=== PATIENT | male | born 1960 | race Caucasian/White ===

== ENCOUNTER 2023-11-13 11:20 | Outpatient (OUT) | payer OTHER, SELFPAY ==
[2023-11-13 11:47] LABS: Basophils Absolute Auto 0.1 10^3/uL (0.0-0.1); Basophils Percent Auto 0.8 % (0.2-2.0); Eosinophils Absolute Auto 0.2 10^3/uL (0.0-0.7); Eosinophils Percent Auto 3.7 % (0.9-7.0); Hematocrit 44.2 % (42.0-54.0); Hemoglobin 14.9 g/dL (14.0-18.0); Immature Granulocytes Abs Auto 0.01 10^3/uL (0.00-0.03); Immature Granulocytes Pct Auto 0.2 % (0.0-0.5); Lymphocytes Absolute Auto 1.7 10^3/uL (1.2-3.8); Lymphocytes Percent Auto 27.7 % (20.5-60.0); Mean Corpuscular HGB Conc 33.7 g/dL (29.9-35.2); Mean Corpuscular Hemoglobin 32.1 pg (25.9-34.0); Mean Corpuscular Volume 95.3 fL (80.0-94.0); Monocytes Absolute Auto 0.6 10^3/uL (0.3-0.8); Monocytes Percent Auto 9.5 % (1.7-12.0); Neutrophils Absolute Auto 3.6 10^3/uL (1.4-6.5); Neutrophils Percent Auto 58.1 % (43.0-75.0); Platelet Count 226 10^3/uL (150-450); Red Blood Count 4.64 10^6/uL (4.70-6.10); Red Cell Distribution Width 12.3 % (11.0-15.0); White Blood Count 6.2 10^3/uL (4.0-11.0)
[2023-11-13 12:45] LABS: Anion Gap 11.7; BUN Creatinine Ratio 19.4; Calcium 9.1 mg/dL (8.5-10.1); Carbon Dioxide 28.7 mmol/L (21.0-32.0); Chloride 106 mmol/L (98-107); Estimated GFR (African America >60 (>=60); Estimated GFR (Non-African Ame >60 (>=60); Glucose 95 mg/dL (74-106); Potassium 4.4 mmol/L (3.5-5.1); Sodium 142 mmol/L (136-145); Thyroid Stimulating Hormone 1.861 uIU/mL (0.358-3.740)
[2023-11-14 04:07] LABS: Testosterone 481 ng/dL (264-916)
== END 2023-11-13 11:21 | disposition home or self-care (01) ==
LOC: LAB 11:24
PROVIDERS: PCP Family Medicine; Visit Provider Family Medicine
DX: Z79.899 Other long term (current) drug therapy (principal); R53.83 Other fatigue
CPT/HCPCS: 36415; 80048; 84403; 84443; 85025

== ENCOUNTER 2024-02-22 23:27 | Emergency (ER) | payer OTHER, SELFPAY ==
[2024-02-22 23:31] VITALS: BP 151/79; PULSE 94; TEMP 37.1; O2SAT 96; BMI 36.9
--- OUTSIDE RECORDS SUMMARY | 2024-02-22 23:34 | XMS_ITS | CCD ---
Author Organization [facility] Inform ion Partnership [facility] Care Team Providers Care Library Page Name Role Phone Neftaly Solis Attending Provider Jose Escalante Primary Care Provider Marta Niño Unavailable REZA DILLON Primary Care Physician [phone] Sera REYNA Attending Unavailable NADERER PROVIDERREZA Referring Unavailab MD Jose Schulte Primary Care Provider MD Justo Carter Attending Provider [facility], DR CEE Primary Care Unavailable Keyla Miller Consulting Unavailable FAWTAMI, H Admitting Unavailable FACHARISMA, H Attending Unavailable CONSUELO FRIAS Consulting Unavailable FAWWAD, WALLACE H Consulting Unavailable JENNY, DR IRENE Gandhi Attending Unavailable JENNY, DR IRENE Gandhi Admitting Unavailable JENNY, DR IRENE Gandhi Consulting Unavailable NADEREHiram, DR REZA Lazcano Primary Care Unavailable GIBSON MARINELLI Consulting Unavailable Keyla Miller Consulting Unavailable NADNATO, DR REZA Lazcano Attending Unavailable NADERER, DR REZA Lazcano Primary Care Unavailable NADERER, DR REZA Lazcano Admitting Unavailable NADERER, DR REZA Lazcano Consulting Unavailable NILL ., DR ZAMORA Attending Unavailable ZIXAVIER, DR OSWALD Gandhi Consulting Unavailable NADEREHiram, DR REZA Lazcano Primary Care Unavailable NILL ., DR ZAMORA Admitting Unavailable NILL ., DR ZAMORA Consulting Unavailable NADERER, DR REZA Lazcano Consulting Unavailable NADERER, DR REZA Lazcano Primary Care Unavailable NADERER, DR REZA Lazcano Admitting Unavailable NADERER, DR REZA Lazcano Attending Unavailable Grady Hitchcock Unavailable MD Grady Hitchcock Attending Provider MD Reza Dillon Primary Care Provider MD Chuy Ward Attending Provider Reza Dillon MD Primary Care Provider Reza Dillon Primary Care Unavailable Grady Hitchcock Admitting Unavailable Grady Hitchcock Attending Unavailable Chuy Ward Admitting UnavailChuy Ramirez Attending Unavailabl e Reza Dillon Primary Care Unavailable Grady Hitchcock Admitting Unavailable Grady Hitchcock Attending Unavailable Reza Dillon Primary Care Unavailable HaladaJusto reynolds Admitting Unavailable Haladarodolfo, Justo Attending Unavailable Reza Dillon Primary Care Unavailable CARLO GONZALES Referring Unavailable LUKASJOSÉ JASMINE Attending Unavailable GILLMOJO Gandhi Attending Unavailable REZA DILLON Attending Unavailable MURCEDAMIR Cortes Attending Unavailable MURCESophia, DAMIR Lino Attending Unavailable APLCARLO ANN Attending Unavailable PETOSCAR KAMINSKI Attending Unavailable Reza Dillon MD Primary Care Provider Reza Dillon MD Unavailable Unavailable Unavailable Unavailable Allergies Allergy Classification Reported Allergen(s) Allergy Type Date of Onset Reaction(s) Facility (13 sources) Acetaminophen; Translations: [acetaminophen] Drug Allergy 03-12-20 16 hives, Eruption of skin (disorder), Rash [facility] (2 sources) Acetaminophen; Translations: [Tylenol] Drug Allergy 04-07-20 22 [facility] (13 sources) Chocolate Allergy to substance 07-26-19 21 Rash [facility] (7 sources) Soy protein Allergy to substance 03-12-20 16 Unknown Reaction [facility] (10 sources) Wheat preparation Drug Allergy 03-12-20 16 Unknown Reaction [facility] (6 sources) beet sugar Allergy to substance 07-26-19 21 Unknown Reaction [facility] (3 sources) Wheat germ oil Drug Allergy Unknown [place] Other (5 sources) Soybean-Soy Isoflavones Drug allergy 08-26-19 24 Unknown, Unknown Reaction [facility] (1 source) Wheat Propensity to adverse reactions to drug 03-12-20 16 [facility] (1 source) Other Propensity to adverse reactions 03-12-20 16 [facility] (4 sources) Acetaminophen Drug Allergy 01-06-20 14 Rash [facility] (4 sources) Germanium Drug Allergy 07-26-19 21 Unknown [facility] (4 sources) Isoflavones (Soy) Allergy to substance 02-25-20 23 Rash [facility] Medications Current Medications Medication Drug Class(es) Dates Sig (Normalized) Sig (Original) 0.4 ml adalimumab 100 mg/ml auto-injector (6 sources) Tumor Necrosis Factor Nano Start: 08-26-2023 Adalimumab (Humira(Cf) Pen) 40 mg/0.4 mL pen injector kit Active MG SUBCUT August 26, 2023 12:00am Start: 07-31-2023 Humira, 2 Pen, 40 MG/0.4ML Pen-injector Kit pen-injector Inject 40 mg under the skin every 14 (fourteen) days 07/31/2023 Active [id number] actuat albuterol 0.09 mg/actuat metered dose inhaler (4 sources) beta2-Adrenergic Agonist Start: 07-20-2022 take 2 puff(s) by inhalation four times daily as needed Albuterol Sulfate HFA 108 (90 Base) MCG/ACT 2 puffs Inhalation 4 times a day prn PRN Jul, Active Start: 07-20-2022 take 2 puff(s) by in halation four times daily as needed Albuterol Sulfate HFA 108 (90 Base) MCG/ACT 2 puffs Inhalation 4 times a day prn PRN Jul, Active Start: 07-20-2022 take 2 puff(s) by in halation four times daily as needed Albuterol Sulfate HFA 108 (90 Base) MCG/ACT 2 puffs Inhalation 4 times a day prn Jul, Active amitriptyline hydrochloride 10 mg oral tablet (4 sources) Tricyclic Antidepressant Start: 09-29-2023 take 1 tablet by mouth at bedtime amitriptyline (Elavil) 10 MG tablet Indications: Chronic cough Take 1 tablet (10 mg) by mouth at bedtime 30 tablet 2 09/29/2023 Active benzonatate 200 mg oral capsule (1 source) Non-narcotic Antitussive Start: 07-20-2022 take 1 capsule by mouth every eight hours Benzonatate 200 MG 1 capsule Orally Three times a day Jul, Active Betamethasone / Clotrimazole (1 source) Azole Antifungal, Corticosteroid Start: 02-08-2022 betamethasone-clot rimazole Top 0.05%-1% Crm 15 gram 1 monster, Topical, BID, Refill(s) 0 Start Date: 02/08/22 Status: Ordered citalopram 20 mg oral tablet (17 sources) Serotonin Reuptake Inhibitor Start: 07-25-2020 citalopram (CeleXA) 20 MG tablet Indications: VERONICA (generalized anxiety disorder) (CMS/LTAC, [facility]IN [facility]) TAKE 1 TABLET DAILY 90 tablet 3 12/17/2023 Active Citalopram Beasley bromide Active cyclobenzaprine hydrochloride 10 mg oral tablet (5 sources) Muscle Relaxant Start: 11-19-2023 take 1 tablet by mouth three times daily as needed for muscle spasms cyclobenzaprine (Flexeril) 10 MG tablet Indications: Acute left-sided low back pain with left-sided sciatica Take 1 tablet (10 mg) by mouth 3 (three) times a day as needed for muscle spasms 60 tablet 1 11/19/2023 Active Start: 10-17-2020 take 1 tablet by sanam th at bedtime cyclobenzaprine (FLEXERIL) 10 mg tablet take 1 tablet by mouth at bedtime if needed for 14 days 0 10/17/2020 Active leflunomide 20 mg oral tablet (10 sources) Antirheumatic Agent Start: 01-21-2023 End: 01-12-2024 take 1 tablet by mouth once daily leflunomide (Arava) 20 MG tablet take 1 tablet by mouth once daily ( MUST GET STANDING LABS ) 01/21/2023 Active nabumetone 500 mg oral tablet (1 source) Nonsteroidal Anti-inflammatory Drug Start: 02-08-2022 take 1 tablet by mouth twice daily as needed for pain nabumetone 500 mg Tab 500 mg = 1 tab(s), Oral, BID, PRN Pain, Refills(s) 0 Start Date: 02/08/22 Status: Ordered omeprazole 40 mg delayed release oral capsule (14 sources) Proton Pump Inhibitor Start: 10-29-2023 take 1 capsule by mouth in the morning omeprazole (PriLOSEC) [address] capsule Take 40 mg by mouth in the morning and 40 mg in the evening. Take before meals. 10/29/2023 Active Start: 04-25-2023 Omeprazole 40 MG 1 capsule 30 minutes before morning meal and in the evening Orally twice a day for 90 days Apr, Active Start: 04-22-2016 take 40 mg by mouth once daily Omeprazole Active 40 MG PO Daily July 25, 2020 12:00am Omeprazole Activ e ondansetron 4 mg oral tablet (1 source) Serotonin-3 Receptor Antagonist Start: 01-24-2021 take 1 tablet by mouth three times daily as needed for nausea Zofran 4 MG 1 tablet Orally tid prn 1 tablet ODT 3 times a day as needed for nausea or vomiting. Jan, Active pantoprazole 40 mg delayed release oral tablet (3 sources) Proton Pump Inhibitor Start: 02-08-2022 take 1 tablet by mouth twice daily Pantoprazole [address] Tab 40 mg = 1 tab(s), Oral, BID, Refills(s) 0 Start Date: 02/08/22 Status: Ordered pramipexole dihydrochloride 0.25 mg oral tablet (7 sources) Nonergot Dopamine Agonist Start: 01-12-2023 take 1 tablet by mouth in the morning pramipexole (Mirapex) 0.25 MG tablet Take 0.25 mg by mouth in the morning and 0.25 mg before bedtime. 01/12/2023 Active take 1 tablet by sanam th every twenty-four hours Pramipexole Dihydrochloride ER 0.375 MG 1 tablet Orally Once a day Not-Taking/PRN predniSONE 20 mg oral tablet (1 source) Start: 07-20-2022 take 1 tablet by mouth every twelve hours predniSONE 20 MG 1 tablet Orally 2 times a day for 5 day(s) Jul, Active sucralfate 1000 mg oral tablet (1 source) Aluminum Complex Start: 02-08-2022 sucralfate 1 g Tab 1 gm = 1 tab(s), Oral, QIDACHS, Refills(s) 0 Start Date: 02/08/22 Status: Ordered tamsulosin hydrochloride 0.4 mg oral capsule (20 sources) alpha-Adrenergic Nano Start: 07-28-2023 tamsulosin (FLOMAX) 0.4 mg capsule TAKE 2 CAPSULES IN THE MORNING 180 capsule 3 07/28/2023 Active Start: 08-02-2022 take 1 capsule by mo uth every twenty-four hours in the morning tamsulosin (Flomax) 0.4 MG 24 hr capsule Take 1 capsule by mouth in the morning. 08/02/2022 Active Start: 08-02-2022 End: 07-28-2023 tamsulosin (FLOMAX) 0.4 mg c apsule TAKE 2 CAPSULES IN THE MORNING 180 capsule 3 08/02/2022 07/28/2023 Discontinued Start: 07-25-2020 take 0.4 mg by mouth once luis y Tamsulosin Active 0.4 MG PO Daily July 25, 2020 12:00am take 1 capsule by mo uth every twelve hours Tamsulosin HCl 0.4 MG 1 capsule Orally TWICE A DAY Active Tamsulosin HCl A ctive Flomax Not-Takin g Completed/Discontinued Medications Medication Drug Class(es) Dates Sig (Normalized) Sig (Original) Ketorolac (8 sources) Nonsteroidal Anti-inflammatory Drug, Cyclooxygenase Inhibitor Start: 11-25-2018 Toradol per 15 mg Nov, 30 mg Start: 04-07-2017 Toradol per 15 mg Mar, 60 mg Triamcinolone (8 sources) Corticosteroid Start: 11-25-2018 Kenalog -40 mg Nov, 60 mg Start: 04-07-2017 KENALOG - 10 m g Mar, 40 mg Problems Active Problems Problem Classification Problem Date Documented Da te Episodic/Chronic Anxiety disorders (5 sources) Generalized anxiety disorder; Translations: [Generalized anxiety disorder] Onset: 4 02-08-2022 Chronic Chronic obstructive pulmonary disease and bronchiectasis (1 source) Bronchitis, not specified as acute or chronic Episodic Esophageal disorders (20 sources) Gastroesophageal reflux disease; Translations: [Gastro-esophageal reflux disease without esophagitis] Onset: 2 Chronic Esophageal disorders (1 source) Esophageal disorders; Translations: [Gastro-esophageal reflux disease without esophagitis] Onset: 3 Headache; including migraine (1 source) Headache; including migraine; Translations: [HEADACHE UNSPECIFIED] Onset: 2 Hyperplasia of prostate (5 sources) Benign prostatic hyperplasia; Translations: [Benign prostatic hypertrophy without outflow obstruction] Onset: 4 02-08-2022 Chronic Immunizations and screening for infectious disease (6 sources) Contact with and (suspected) exposure to other viral communicable diseases; Translations: [Contact with and (suspected) exposure to other viral communicable diseases Z20.828] Onset: 1 Resolved: 1 Episodic Miscellaneous mental health disorders (4 sources) Primary insomnia; Translations: [Primary insomnia] Onset: 4 08-22-2023 Chronic Neoplasms of unspecified nature or uncertain behavior (2 sources) Neoplastic disease; Translations: [Neoplasm of unspecified behavior of bone, soft tissue, and skin] 01-20-2024 Episodic Osteoarthritis (12 sources) Arthritis; Translations: [Unspecified osteoarthritis, unspecified site] Onset: 4 05-02-2023 Chronic Other acquired deformities (4 sources) Contracture of joint of right ankle; Translations: [Contracture, right ankle] Onset: 4 05-02-2023 Chronic Other gastrointestinal disorders (1 source) Heartburn; Translations: [Heartburn] 08-26-2023 Episodic Other hereditary and degenerative nervous system conditions (4 sources) Restless legs; Translations: [Restless legs syndrome] Onset: 4 09-08-2023 Chronic Other inflammatory condition of skin (5 sources) Psoriasis; Translations: [Psoriasis, unspecified] Onset: 4 02-08-2022 Chronic Other male genital disorders (5 sources) Male erectile dysfunction, unspecified; Translations: [Impotence of organic origin] Onset: 6 07-08-2022 Chronic Other nutritional; endocrine; and metabolic disorders (5 sources) Body mass index 40+ - severely obese; Translations: [Body mass index (BMI) 40.0-44.9, adult] Onset: 4 03-06-2022 Chronic Other nutritional; endocrine; and metabolic disorders (5 sources) Morbid obesity; Translations: [Morbid (severe) obesity due to excess calories] Onset: 4 02-08-2022 Chronic Other upper respiratory disease (4 sources) Allergic rhinitis; Translations: [Allergic rhinitis, unspecified] Onset: 4 05-02-2023 Chronic Residual codes; unclassified (5 sources) Obstructive sleep apnea syndrome; Translations: [Obstructive sleep apnea (adult) (pediatric)] Onset: 4 02-08-2022 Chronic Residual codes; unclassified (4 sources) Hypersomnia; Translations: [Hypersomnia, unspecified] Onset: 4 08-22-2023 Chronic Rheumatoid arthritis and related disease (4 sources) Rheumatoid arthritis of multiple joints; Translations: [Rheumatoid arthritis without rheumatoid factor, multiple sites] Onset: 4 09-08-2023 Chronic Unclassified (1 source) COUGH, UNSPECIFIED; Translations: [COUGH, UNSPECIFIED] Onset: Past or Other Problems Problem Classification Problem Date Documented Da te Episodic/Chronic Abdominal hernia (5 sources) Hiatal hernia; Translations: [Diaphragmatic hernia without obstruction or gangrene] Onset: 05-02-2023 02-08-2022 Episodic Allergic reactions (5 sources) Chronic eczema; Translations: [Dermatitis, unspecified] Onset: 05-02-2023 02-08-2022 Episodic Coma; stupor; and brain damage (4 sources) Daytime somnolence; Translations: [Somnolence] Onset: 05-02-2023 05-02-2023 Episodic Conditions associated with dizziness or vertigo (4 sources) Dizziness and giddiness; Translations: [DIZZINESS AND GIDDINESS] Onset: 04-07-2022 Episodic E Codes: Adverse effects of medical drugs (1 source) Adverse effect of other viral vaccines, initial encounter; Translations: [ADVERS EFF OTH VIRAL VACC INIT ENC] Onset: 04-09-2022 Episodic Genitourinary symptoms and ill-defined conditions (5 sources) Increased frequency of urination; Translations: [Frequency of micturition] Onset: 09-19-2020 03-18-2023 Episodic Malaise and fatigue (5 sources) Weakness; Translations: [Fatigue] Onset: 04-09-2022 09-08-2023 Episodic Nausea and vomiting (1 source) Nausea with vomiting, unspecified; Translations: [Nausea and vomiting, intractability of vomiting not specified, unspecified vomiting type R11.2] Onset: 01-24-2021 Resolved: 01-24-2021 Episodic Other aftercare (4 sources) Long-term current use of drug therapy; Translations: [Other intermediate accountant (current) drug therapy] Onset: 09-08-2023 09-08-2023 Episodic Other gastrointestinal disorders (12 sources) Dysphagia; Translations: [Dysphagia, unspecified] Onset: 09-29-2023 Resolved: 09-29-2023 07-25-2020 Episodic Other gastrointestinal disorders (2 sources) Dysphagia, unspecified; Translations: [Dysphagia, unspecified] Onset: 02-17-2023 Episodic Other gastrointestinal disorders (6 sources) Heartburn; Translations: [Heartburn] Onset: 09-29-2023 Resolved: 09-29-2023 08-26-2023 Episodic Other lower respiratory disease (9 sources) Cough; Translations: [Cough, unspecified] Onset: 03-06-2022 Resolved: 09-29-2023 Episodic Other lower respiratory disease (4 sources) Snoring; Translations: [Snoring] Onset: 08-25-2023 08-25-2023 Episodic Other nervous system disorders (4 sources) Trigeminal neuralgia; Translations: [TRIGEMINAL NEURALGIA] Onset: 01-11-2022 Episodic Other non-traumatic joint disorders (4 sources) Multiple joint pain; Translations: [Pain in unspecified joint] Onset: 09-08-2023 09-08-2023 Episodic Other non-traumatic joint disorders (4 sources) Pain in right knee; Translations: [Pain in joint, lower leg] Onset: 09-08-2023 09-08-2023 Episodic Other screening for suspected conditions (not mental disorders or infectious disease) (6 sources) Encounter for screening for malignant neoplasm of prostate; Translations: [Raised prostate specific antigen] Onset: 03-19-2016 03-18-2023 Episodic Other skin disorders (4 sources) Skin lesion; Translations: [Disorder of the skin and subcutaneous tissue, unspecified] Onset: 09-08-2023 09-08-2023 Episodic Residual codes; unclassified (4 sources) Periodic limb movement disorder; Translations: [Periodic limb movement disorder] Onset: 08-22-2023 Resolved: 09-08-2023 09-08-2023 Chronic Spondylosis; intervertebral disc disorders; other back problems (4 sources) Acute back pain with sciatica; Translations: [Lumbago with sciatica, left side] Onset: 05-02-2023 05-02-2023 Episodic Viral infection (1 source) Viral infection, unspecified; Translations: [Viral infection B34.9] Onset: 01-24-2021 Resolved: 01-24-2021 Episodic Results Test Name Value Interpretation Reference Range Facility No Panel Informationon 01-19 Type of biopsy: tangential Informed consent: discussed and consent obtained Informed consent comment: The risks and benefits of the biopsy were discussed. Risks include but are not limited to bleeding, infection, scarring, pain, and nerve damage. An opportunity to ask questions prior to the procedure was permitted and all questions were answered. Patient was prepped and draped in usual sterile fashion: area cleansed with alcohol. Anesthesia: the lesion was anesthetized in a standard fashion Anesthetic: 1% lidocaine w/ epinephrine 1-100,000 buffered w/ 8.4% NaHCO3 Instrument used: DermaBlade Hemostasis achieved with: electrodesiccation Outcome: patient tolerated procedure well Outcome comment: The specimen was placed in a prelabeled formalin container to be sent for pathology Post-procedure details: sterile dressing applied and wound care instructions given Post-procedure details comment: Emphasized need to contact clinic for any signs of infection, uncontrollable bleeding, or complications. Dressing type: bandage Additional details: Photo taken Amount of lidocaine used: 1.7 cc [facility] Complete Blood Count Auto Di ffon 09-03-2023 Basophils (Bld) [#/Vol] 0.1 10*3/uL Normal 0.0-0.2 [facility] Comment on above: Performed By: #### E SR, HEPATIC, CREAT, CBC #### [place] [address] [place] Basophils/100 WBC (Bld) 1.2 % Normal . T dianne [facility] Comment on above: Performed By: #### E SR, HEPATIC, CREAT, CBC #### [facility] [address] [place] [address] [place] Eosinophils (Bld) [#/Vol] 0.3 10*3/uL Normal 0.0-0.45 [facility] Comment on above: Performed By: #### E SR, HEPATIC, CREAT, CBC #### [place] [address] [place] Eosinophils/100 WBC (Bld) 4.7 % Normal . [facility] Comment on above: Performed By: #### E SR, HEPATIC, CREAT, CBC #### [address] Erythrocyte distribution width (RBC) [Ratio] 13.5 % Normal 12.0-14.8 [facility] Comment on above: Performed By: #### E SR, HEPATIC, CREAT, CBC #### [address] Hematocrit (Bld) [Volume fraction] 45.4 % Normal 38.8-50.0 [facility] Comment on above: Performed By: #### E SR, HEPATIC, CREAT, CBC #### [address] Hemoglobin (Bld) [Mass/Vol] 15.5 g/dL Normal 13.0-17.0 [facility] Comment on above: Performed By: #### E SR, HEPATIC, CREAT, CBC #### [address] Lymphocytes (Bld) [#/Vol] 1.8 10*3/uL Normal 1.00-4.8 [facility] Comment on above: Performed By: #### E SR, HEPATIC, CREAT, CBC #### [address] Lymphocytes/100 WBC (Bld) 28.6 % Normal . [facility] Comment on above: Performed By: #### E SR, HEPATIC, CREAT, CBC #### [address] MCH (RBC) [Entitic mass] 31.9 pg Normal 27.5-35.2 [facility] Comment on above: Performed By: #### E SR, HEPATIC, CREAT, CBC #### [address] MCV (RBC) [Entitic vol] 93.6 fL Normal 83.5-101 T [facility] Comment on above: Performed By: #### E SR, HEPATIC, CREAT, CBC #### [address] Mean Corpuscular HGB Conc 34.1 g/dL Normal 32.5-35.6 [facility] Comment on above: Performed By: #### E SR, HEPATIC, CREAT, CBC #### [address] Monocytes (Bld) [#/Vol] 0.6 10*3/uL Normal 0.0-0.8 [facility] Comment on above: Performed By: #### E SR, HEPATIC, CREAT, CBC #### [address] Monocytes/100 WBC (Bld) 10.1 % Normal . [facility] Comment on above: Performed By: #### E SR, HEPATIC, CREAT, CBC #### [address] Neutrophils (Bld) [#/Vol] 3.4 10*3/uL Normal 1.8-7.7 [facility] Comment on above: Performed By: #### E SR, HEPATIC, CREAT, CBC #### [place] [address] [place] Neutrophils/100 WBC (Bld) 55.4 % Normal . [facility] Comment on above: Performed By: #### E SR, HEPATIC, CREAT, CBC #### [place] [address] [place] NRBC% 0.1 /100{WBC} Normal 0-0.5 [facility] Comment on above: Performed By: #### E SR, HEPATIC, CREAT, CBC #### [address] Platelet mean volume (Bld) [Entitic vol] 8.5 fL Normal 6.6-10.1 [facility] Comment on above: Performed By: #### E SR, HEPATIC, CREAT, CBC #### [place] [address] [place] Platelets (Bld) [#/Vol] 211 10*3/uL Normal 150-450 [facility] Comment on above: Performed By: #### E SR, HEPATIC, CREAT, CBC #### [address] RBC (Bld) [#/Vol] 4.86 10*6/uL Normal 3.90-5.60 [facility] Comment on above: Performed By: #### E SR, HEPATIC, CREAT, CBC #### [address] WBC (Bld) [#/Vol] 6.1 10*3/uL Normal 4.1-10.5 [facility] Comment on above: Performed By: #### E SR, HEPATIC, CREAT, CBC #### [address] Creatinineon 09-03-2023 Creatinine [Mass/Vol] 0.95 mg/dL Normal 0.70-1.30 [facility] Comment on above: Performed By: #### E SR, HEPATIC, CREAT, CBC #### [address] GFR/1.73 sq M.predicted MDRD (S/P/Bld) [Vol rate/Area] mL/min/{1.73_m2} Normal [facility] Comment on above: Result Comment: PERF ORMED BY: [place] [address] PATHOLOGIST ADMISSIONS ADVISOR MYLES CORTEZ M.D. Performed By: #### E SR, HEPATIC, CREAT, CBC #### [address] Erythrocyte Sedimentation Ra abraham 09-03-2023 ESR (Bld) [Velocity] 18 mm/h Normal 0-19 [facility] Comment on above: Result Comment: PERF ORMED BY: [place] [address] PATHOLOGIST ADMISSIONS ADVISOR MYLES CORTEZ M.D. Performed By: #### E SR, HEPATIC, CREAT, CBC #### [facility] [address] Hepatic Panelon 09-03-2023 Albumin [Mass/Vol] 4.3 g/dL Normal 3.5-5.7 [facility] Comment on above: Performed By: #### E SR, HEPATIC, CREAT, CBC #### [facility] [address] Albumin/Globulin [Mass ratio] 1.6 {ratio} Normal [facility] Comment on above: Performed By: #### E SR, HEPATIC, CREAT, CBC #### [address] ALP [Catalytic activity/Vol] 71 U/L Normal 34-104 [facility] [facility] Comment on above: Performed By: #### E SR, HEPATIC, CREAT, CBC #### [address] ALT [Catalytic activity/Vol] 36 U/L Normal 7-52 [facility] Comment on above: Performed By: #### E SR, HEPATIC, CREAT, CBC #### [address] AST [Catalytic activity/Vol] 29 U/L Normal 13-39 [facility] Comment on above: Performed By: #### E SR, HEPATIC, CREAT, CBC #### [address] Bilirubin [Mass/Vol] 0.6 mg/dL Normal 0.3-1.0 [facility] Comment on above: Performed By: #### E SR, HEPATIC, CREAT, CBC #### [place] [address] [place] Bilirubin,Indirect 0.5 mg/dL Normal [facility] Comment on above: Performed By: #### E SR, HEPATIC, CREAT, CBC #### [address] Bilirubin.indirect [Mass/Vol] 0.10 mg/dL Normal 0.03-0.18 [facility] Comment on above: Performed By: #### E SR, HEPATIC, CREAT, CBC #### [facility] [address] Globulin (S) [Mass/Vol] 2.7 g/dL Normal T [facility] Comment on above: Performed By: #### E SR, HEPATIC, CREAT, CBC #### [facility] [address] Protein [Mass/Vol] 7.0 g/dL Normal 6.4-8.9 [facility] Comment on above: Performed By: #### E SR, HEPATIC, CREAT, CBC #### [facility] [address] MR SHOULDER LEFT WO IV CONTR Mallory 04-18-2023 MR SHOULDER LEFT WO IV CONTRAST EXAMINATION: MR SHOULDER LEFT WO IV CONTRAST HISTORY: left shoulder internal derangement hyperextension injury to the left shoulder 5 years ago. No recent injury. TECHNIQUE: Routine non-contrast MRI of the shoulder, left side COMPARISON: Radiographs 02/24/2023. RESULT: Some limitations from motion. Within these limits: Rotator Cuff Tendons: Mild tendinosis involving supraspinatus and infraspinatus, without tear, with areas of reactive cystic change at the insertions. Subscapularis and teres minor appear intact. Long Head Biceps Tendon: Appears intact with appropriate location. Muscle: Muscle bulk and signal intensity are within normal limits. Labrum: Areas of fraying/tearing, especially superiorly. Bones and Marrow: Subchondral edema at the AC joint as below. Glenohumeral Joint: Osteophytes without distinct measurable full-thickness chondral defect within limits of motion. No joint effusion. Acromioclavicular Joint: Extensive subchondral edema at the joint involving the distal clavicle and acromion with osteophytes and pericapsular edema, probably degenerative in etiology. Differential also includes contusion or low-grade AC joint injury. Alignment appears grossly maintained within limits of motion. Other: Minimal subacromial-subdeltoi d bursal thickening/fluid. IMPRESSION: Rotator cuff tendinosis, without tear. Extensive subchondral edema at the acromioclavicular joint, most likely degenerative in etiology as discussed. ELECTRONICALLY SIGNED BY: Saravanan Jackson MD Normal Not Available Comment on above: Order Comment: MRI l eft shoulder without contrast to be done at [facility] in [place], please call to schedule CT chest w calvinon 03-27-2023 CT chest w con [facility] [place] [address] [place], [place] [id number] CT Scan Report Signed Patient: Anirudh Johnston MR#: [id number] 77 : 1960 Acct:[id number] Age/Sex: 62 / M ADM Date: 03/27/23 Loc: CT Room: Type: [facility] Attending Dr: Grady Hitchcock MD Copies to: Grady Hitchcock MD Ordering Provider: Grady Hitchcock MD Date of Service: 03/27/23 CT/CT chest w con: Esophagogastric junction outflow obstruction;Dysphagia CT CHEST WITH INTRAVENOUS CONTRAST: CLINICAL HISTORY: Chronic cough. COMPARISON: None TECHNIQUE: Spiral images were obtained through the chest following intravenous administration of IV contrast. This CT exam was performed using one or more following dose reduction techniques: Autom ated exposure control, adjustment of the mA and/or kV according to patient size, or use of iterative reconstruction technique. FINDINGS: Mediastinum:Thoracic aorta appears normal in caliber. Pulmonary trunk appears nondilated. No pericardial effusion. No lymphadenopathy. The esophagus is grossly unremarkable. Lungs:No consolidation pneumothorax or pleural effusion. Mild lung scarring. Abd:No acute findings. Soft tissues/Bones: Soft tissues surrounding the chest wall demonstrate no acute findings. Osseous structures demonstrate degenerative change. CT/CT chest w con IMPRESSION: No acute process. Impression dictated by: Oscar Perkins Jr., D.O.03/27/2023 9:58 AM Dictation Location: [place] [address] Transcribed By: [facility] 03/27/23957 Dictated By: Oscar Perkins Jr, DO 03/27/23940 Signed By: 03/27/23957 Normal [facility] CBC (INCLUDES DIFF/PLT)on Basophils (Bld) [#/Vol] 0.041 10*3/uL Normal 0-200 [facility] Comment on above: Performed By: #### 6 399, 48151, 809, 375 #### [facility] of [place] [address] Director Pharmacy Services: Rory Bell MD Basophils/100 WBC (Bld) 0.7 % Normal [facility] Comment on above: Performed By: #### 6 399, 51724, 809, 375 #### [facility] of [place] [address] Director Pharmacy Services: Rory Bell MD Eosinophils (Bld) [#/Vol] 0.278 10*3/uL Normal 15-500 [facility] Comment on above: Performed By: #### 6 399, 26267, 809, 375 #### [facility] of [place] [address] Director Pharmacy Services: Rory Bell MD Eosinophils/100 WBC (Bld) 4.8 % Normal [facility] Comment on above: Performed By: #### 6 399, 78884, 809, 375 #### [facility] of [place] [address] Director Pharmacy Services: Rory Bell MD Erythrocyte distribution width (RBC) [Ratio] 12.6 % Normal 11.0-15.0 [facility] Comment on above: Performed By: #### 6 399, 50266, 809, 375 #### [facility] of [place] [address] Director Pharmacy Services: Rory Bell MD Hematocrit (Bld) [Volume fraction] 41.4 % Normal 38.5-50.0 [facility] Comment on above: Performed By: #### 6 399, 53270, 809, 375 #### [facility] of [place] [address] Director Pharmacy Services: Rory Bell MD Hemoglobin (Bld) [Mass/Vol] 14.1 g/dL Normal 13.2-17.1 [facility] Comment on above: Performed By: #### 6 399, 36328, 809, 375 #### [facility] of [address] [place] [address] Director Pharmacy Services: Rory Bell MD Lymphocytes (Bld) [#/Vol] 1.131 10*3/uL Normal 850-3900 [facility] Comment on above: Performed By: #### 6 399, 63118, 809, 375 #### [facility] of [place] [address] Director Pharmacy Services: Rory Bell MD Lymphocytes/100 WBC (Bld) 19.5 % Normal [facility] Comment on above: Performed By: #### 6 399, 39249, 809, 375 #### [facility] of [place] [address] Director Pharmacy Services: Rory Bell MD MCH (RBC) [Entitic mass] 31.8 pg Normal 27.0-33.0 [facility] Comment on above: Performed By: #### 6 399, 02126, 809, 375 #### [facility] of [place] [address] Director Pharmacy Services: Rory Bell MD MCHC (RBC) [Mass/Vol] 34.1 g/dL Normal 32.0-36.[address] [facility] Comment on above: Performed By: #### 6 399, 66792, 809, 375 #### [facility] of [place] [address] Director Pharmacy Services: Rory Bell MD MCV (RBC) [Entitic vol] 93.2 fL Normal 80.0-100.0 [facility] Comment on above: Performed By: #### 6 399, 73975, 809, 375 #### [facility] of [place] [address] Director Pharmacy Services: Rory Bell MD Monocytes (Bld) [#/Vol] 0.435 10*3/uL Normal 200-950 [facility] Comment on above: Performed By: #### 6 399, 21910, 809, 375 #### [facility] of [address], [address] [place] [address] Director Pharmacy Services: Rory Bell MD Monocytes/100 WBC (Bld) 7.5 % Normal [facility] Comment on above: Performed By: #### 6 399, 65787, 809, 375 #### [facility] of [address], [address] [place] [address] Director Pharmacy Services: Rory Bell MD Neutrophils (Bld) [#/Vol] 3.915 10*3/uL Normal 5683-4068 [facility] Comment on above: Performed By: #### 6 399, 12333, 809, 375 #### [facility] of [place] [address] Director Pharmacy Services: Rory Bell MD Neutrophils/100 WBC (Bld) 67.5 % Normal [facility] Comment on above: Performed By: #### 6 399, 77005, 809, 375 #### [facility] [place] [address] Director Pharmacy Services: Rory Bell MD Platelet mean volume (Bld) [Entitic vol] 10.0 fL Normal 7.5-12.5 [facility] Comment on above: Performed By: #### 6 399, 82139, 809, 375 #### [facility] of [place] [address] Director Pharmacy Services: Rory Bell MD Platelets (Bld) [#/Vol] 269 10*3/uL Normal 140-400 [facility] Comment on above: Performed By: #### 6 399, 16508, 809, 375 #### [facility] of [place] [address] Director Pharmacy Services: Rory Bell MD RBC (Bld) [#/Vol] 4.44 10*6/uL Normal 4.20-5.80 [facility] Comment on above: Performed By: #### 6 399, 08526, 809, 375 #### [facility] of [place] [address] Director Pharmacy Services: Rory Bell MD WBC (Bld) [#/Vol] 5.8 10*3/uL Normal 3.8-10.8 [facility] Comment on above: Performed By: #### 6 399, 41278, 809, 375 #### [facility] [place] [address] Director Pharmacy Services: Rory Bell MD CREATININEon 10-19-2022 Creatinine [Mass/Vol] 0.92 mg/dL Normal 0.70-1.35 [facility] Comment on above: Order Comment: FASTI NG:NO FASTING: NO Performed By: #### 6 399, 04916, 809, 375 #### [facility] [place] [address] Director Pharmacy Services: Rory Bell MD GFR/1.73 sq M.predicted among non-blacks MDRD (S/P/Bld) [Vol rate/Area] 95 mL/min/{1.73_m2} Normal > OR = 60 [facility] Comment on above: Order Comment: FASTI NG:NO FASTING: NO Result Comment: The eGFR is based on the CKD-EPI 2020 equation. To calculate the new eGFR from a previous Creatinine or Cystatin C result, go to https://www.kidney.org/professionals/ kdoqi/gfr%5Fcalculator Performed By: #### 6 399, 83236, 809, 375 #### [facility] [place] [address] Director Pharmacy Services: Rory Bell MD HEPATIC FUNCTION PANELon Albumin [Mass/Vol] 4.0 g/dL Normal 3.6-5.1 [facility] Comment on above: Performed By: #### 6 399, 49289, 809, 375 #### [facility] [place] [address] Director Pharmacy Services: Rory Bell MD Albumin/Globulin [Mass ratio] 1.5 {ratio} Normal 1.0-2.5 [facility] Comment on above: Performed By: #### 6 399, 73830, 809, 375 #### [facility] of [address], [address] [place] [address] Director Pharmacy Services: Rory Bell MD ALP [Catalytic activity/Vol] 69 U/L Normal 35-144 [facility] Comment on above: Performed By: #### 6 399, 31117, 809, 375 #### [facility] of [address], [address] [place] [address] Director Pharmacy Services: Rory Bell MD ALT [Catalytic activity/Vol] 28 U/L Normal 9-46 [facility] Comment on above: Performed By: #### 6 399, 13639, 809, 375 #### [facility] of [address], [address] [place] [address] Director Pharmacy Services: Rory Bell MD AST [Catalytic activity/Vol] 24 U/L Normal 10-35 [facility] Comment on above: Performed By: #### 6 399, 45358, 809, 375 #### [facility] of [address], [address] [place] [address] Director Pharmacy Services: Rory Bell MD Bilirubin [Mass/Vol] 0.5 mg/dL Normal 0.2-1.2 [facility] Comment on above: Performed By: #### 6 399, 38315, 809, 375 #### [facility] of [place] [address] Director Pharmacy Services: Rory Bell MD BILIRUBIN, INDIRECT 0.4 mg/dL (calc) Normal 0.2-1.2 [facility] Comment on above: Performed By: #### 6 399, 47286, 809, 375 #### [facility] of [address], [address] [place] [address] Director Pharmacy Services: Rory Bell MD Bilirubin.indirect [Mass/Vol] 0.1 mg/dL Normal < OR = 0.2 [facility] Comment on above: Performed By: #### 6 399, 90145, 809, 375 #### [facility] of [address], [address] [place] [address] Director Pharmacy Services: Rory Bell MD Globulin (S) [Mass/Vol] 2.6 g/dL Normal 1.9-3.7 [facility] Comment on above: Performed By: #### 6 399, 90945, 809, 375 #### [facility] of [place] [address] Director Pharmacy Services: Rory Bell MD Protein [Mass/Vol] 6.6 g/dL Normal 6.1-8.1 [facility] Comment on above: Performed By: #### 6 399, 39332, 809, 375 #### [facility] of [place] [address] Director Pharmacy Services: Rory Bell MD SED RATE BY MODIFIED MELISSA Ballard 10-19-2022 SED RATE BY MODIFIED IRENE 22 mm/h High < OR = 20 [facility] Comment on above: Performed By: #### 6 399, 38331, 809, 375 #### [facility] of [place] [address] Director Pharmacy Services: Rory Bell MD CBC (INCLUDES DIFF/PLT)on Basophils (Bld) [#/Vol] 0.059 10*3/uL Normal 0-200 [facility] Comment on above: Performed By: #### 8 09, 37470, 375, 6399 #### [facility] [place] [address] Director Pharmacy Services: Rory Bell MD Basophils/100 WBC (Bld) 0.9 % Normal [facility] Comment on above: Performed By: #### 8 09, 59452, 375, 6399 #### [facility] [place] [address] Director Pharmacy Services: Rory Bell MD Eosinophils (Bld) [#/Vol] 0.383 10*3/uL Normal 15-500 [facility] Comment on above: Performed By: #### 8 09, 98677, 375, 6399 #### [facility] of [address] [place] [address] Director Pharmacy Services: Rory Bell MD Eosinophils/100 WBC (Bld) 5.8 % Normal [facility] Comment on above: Performed By: #### 8 09, 64667, 375, 6399 #### [facility] of [address], [address] [place] [address] Director Pharmacy Services: Rory Bell MD Erythrocyte distribution width (RBC) [Ratio] 12.6 % Normal 11.0-15.0 [facility] Comment on above: Performed By: #### 8 09, , , 6399 #### [facility] of [place] [address] Director Pharmacy Services: Rory Bell MD Hematocrit (Bld) [Volume fraction] 42.5 % Normal 38.5-50.0 [facility] Comment on above: Performed By: #### 8 09, , , 6399 #### [facility] of [place] [address] Director Pharmacy Services: Rory Bell MD Hemoglobin (Bld) [Mass/Vol] 14.6 g/dL Normal 13.2-17.1 [facility] Comment on above: Performed By: #### 8 09, 14931, 375, 6399 #### [facility] [place] [address] Director Pharmacy Services: Rory Bell MD Lymphocytes (Bld) [#/Vol] 1.274 10*3/uL Normal 850-3900 [facility] Comment on above: Performed By: #### 8 09, 55832, 375, 6399 #### [facility] [place] [address] Director Pharmacy Services: Rory Bell MD Lymphocytes/100 WBC (Bld) 19.3 % Normal [facility] Comment on above: Performed By: #### 8 09, 26783, 375, 6399 #### [facility] [place] [address] Director Pharmacy Services: Rory Bell MD MCH (RBC) [Entitic mass] 31.3 pg Normal 27.0-33.0 [facility] Comment on above: Performed By: #### 8 09, , 375, 6399 #### [facility] [place] [address] Director Pharmacy Services: Rory Bell MD MCHC (RBC) [Mass/Vol] 34.4 g/dL Normal 32.0-36.[address] [facility] Comment on above: Performed By: #### 8 09, , 375, 6399 #### [facility] [place] [address] Director Pharmacy Services: Rory Bell MD MCV (RBC) [Entitic vol] 91.0 fL Normal 80.0-100.0 [facility] Comment on above: Performed By: #### 8 09, , , 6399 #### [facility] [place] [address] Director Pharmacy Services: Rory Bell MD Monocytes (Bld) [#/Vol] 0.442 10*3/uL Normal 200-950 [facility] Comment on above: Performed By: #### 8 09, , 375, 6399 #### [facility] [place] [address] Director Pharmacy Services: Rory Bell MD Monocytes/100 WBC (Bld) 6.7 % Normal [facility] Comment on above: Performed By: #### 8 09, , , 6399 #### [facility] [place] [address] Director Pharmacy Services: Rory Bell MD Neutrophils (Bld) [#/Vol] 4.442 10*3/uL Normal 9324-5263 [facility] Comment on above: Performed By: #### 8 09, , 375, 6399 #### [facility] [place] [address] Director Pharmacy Services: Rory Bell MD Neutrophils/100 WBC (Bld) 67.3 % Normal [facility] Comment on above: Performed By: #### 8 09, 15038, 375, 6399 #### [facility] [place] [address] Director Pharmacy Services: Rory Bell MD Platelet mean volume (Bld) [Entitic vol] 10.1 fL Normal 7.5-12.5 [facility] Comment on above: Performed By: #### 8 09, 24146, 375, 6399 #### [facility] [place] [address] Director Pharmacy Services: Rory Bell MD Platelets (Bld) [#/Vol] 258 10*3/uL Normal 140-400 [facility] Comment on above: Performed By: #### 8 09, 06662, 375, 6399 #### [facility] [place] [address] Director Pharmacy Services: Rory Bell MD RBC (Bld) [#/Vol] 4.67 10*6/uL Normal 4.20-5.80 [facility] Comment on above: Performed By: #### 8 09, 82015, 375, 6399 #### [facility] [place] [address] Director Pharmacy Services: Rory Bell MD WBC (Bld) [#/Vol] 6.6 10*3/uL Normal 3.8-10.8 [facility] Comment on above: Performed By: #### 8 09, 27062, 375, 6399 #### [facility] of [place] [address] Director Pharmacy Services: Rory Bell MD CREATININEon 09-07-2022 Creatinine [Mass/Vol] 0.98 mg/dL Normal 0.70-1.[address] [facility] Comment on above: Performed By: #### 1 0256, 809, 375, 6399 #### [facility] [place] [address] Director Pharmacy Services: Rory Bell MD GFR/1.73 sq M.predicted among non-blacks MDRD (S/P/Bld) [Vol rate/Area] 88 mL/min/{1.73_m2} Normal > OR = 60 [facility] Comment on above: Result Comment: The eGFR is based on the CKD-EPI 2020 equation. To calculate the new eGFR from a previous Creatinine or Cystatin C result, go to https://www.kidney.org/professionals/ kdoqi/gfr%5Fcalculator Performed By: #### 1 0256, 809, 375, 6399 #### [facility] [place] [address] Director Pharmacy Services: Rory Bell MD HEPATIC FUNCTION PANELon Albumin [Mass/Vol] 3.9 g/dL Normal 3.6-5.1 [facility] Comment on above: Performed By: #### 1 0256, 809, 375, 6399 #### [facility] [place] [address] Director Pharmacy Services: Rory Bell MD Albumin/Globulin [Mass ratio] 1.5 {ratio} Normal 1.0-2.5 [facility] Comment on above: Performed By: #### 1 0256, 809, 375, 6399 #### [facility] [place] [address] Director Pharmacy Services: Rory Bell MD ALP [Catalytic activity/Vol] 67 U/L Normal 35-144 [facility] Comment on above: Performed By: #### 1 0256, 809, 375, 6399 #### [facility] [place] [address] Director Pharmacy Services: Rory Bell MD ALT [Catalytic activity/Vol] 24 U/L Normal 9-46 [facility] Comment on above: Performed By: #### 1 0256, 809, 375, 6399 #### [facility] [place] [address] Director Pharmacy Services: Rory Bell MD AST [Catalytic activity/Vol] 22 U/L Normal 10-35 [facility] Comment on above: Performed By: #### 1 0256, 809, 375, 6399 #### [facility] [place] [address] Director Pharmacy Services: Rory Bell MD Bilirubin [Mass/Vol] 0.5 mg/dL Normal 0.2-1.2 [facility] Comment on above: Performed By: #### 1 0256, 809, 375, 6399 #### [facility] [place] [address] Director Pharmacy Services: Rory Bell MD BILIRUBIN, INDIRECT 0.4 mg/dL (calc) Normal 0.2-1.2 [facility] Comment on above: Performed By: #### 1 0256, 809, 375, 6399 #### [facility] [place] [address] Director Pharmacy Services: Rory Bell MD Bilirubin.indirect [Mass/Vol] 0.1 mg/dL Normal < OR = 0.2 [facility] Comment on above: Performed By: #### 1 0256, 809, 375, 6399 #### [facility] [place] [address] Director Pharmacy Services: Rory Bell MD Globulin (S) [Mass/Vol] 2.6 g/dL Normal 1.9-3.7 [facility] Comment on above: Performed By: #### 1 0256, 809, 375, 6399 #### [facility] [place] [address] Director Pharmacy Services: Rory Bell MD Protein [Mass/Vol] 6.5 g/dL Normal 6.1-8.1 [facility] Comment on above: Performed By: #### 1 0256, 809, 375, 6399 #### [facility] [place] [address] Director Pharmacy Services: Rory Bell MD SED RATE BY FLACO Ballard 09-07-2022 SED RATE BY MODIFIED WESTERGREN 19 mm/h Normal < OR = 20 [facility] Comment on above: Performed By: #### 8 09, , , 6399 #### [facility] [place] [address] Director Pharmacy Services: Rory Bell MD CBC (INCLUDES DIFF/PLT)on Basophils (Bld) [#/Vol] 0.062 10*3/uL Normal 0-200 [facility] Comment on above: Performed By: #### 8 09, , , 6399 #### [facility] [place] [address] Director Pharmacy Services: Rory Bell MD Basophils/100 WBC (Bld) 0.9 % Normal [facility] Comment on above: Performed By: #### 8 09, , , 63 #### [facility] [place] [address] Director Pharmacy Services: Rory Bell MD Eosinophils (Bld) [#/Vol] 0.435 10*3/uL Normal 15-500 [facility] Comment on above: Performed By: #### 8 09, , , 6399 #### [facility] [place] [address] Director Pharmacy Services: Rory Bell MD Eosinophils/100 WBC (Bld) 6.3 % Normal [facility] Comment on above: Performed By: #### 8 09, , , 6399 #### [facility] [place] [address] Director Pharmacy Services: Rory Bell MD Erythrocyte distribution width (RBC) [Ratio] 12.8 % Normal 11.0-15.0 [facility] Comment on above: Performed By: #### 8 09, , , 6399 #### [facility] [place] [address] Director Pharmacy Services: Rory Bell MD Hematocrit (Bld) [Volume fraction] 42.9 % Normal 38.5-50.0 [facility] Comment on above: Performed By: #### 8 09, 01806, 375, 6399 #### [facility] [place] [address] Director Pharmacy Services: Rory Bell MD Hemoglobin (Bld) [Mass/Vol] 15.0 g/dL Normal 13.2-17.1 [facility] Comment on above: Performed By: #### 8 09, 54883, 375, 6399 #### [facility] [place] [address] Director Pharmacy Services: Rory Bell MD Lymphocytes (Bld) [#/Vol] 1.566 10*3/uL Normal 850-3900 [facility] Comment on above: Performed By: #### 8 09, 09261, , 6399 #### [facility] [place] [address] Director Pharmacy Services: Rory Bell MD Lymphocytes/100 WBC (Bld) 22.7 % Normal [facility] Comment on above: Performed By: #### 8 09, 69062, 375, 6399 #### [facility] [place] [address] Director Pharmacy Services: Rory Bell MD MCH (RBC) [Entitic mass] 31.9 pg Normal 27.0-33.0 [facility] Comment on above: Performed By: #### 8 09, 64896, 375, 6399 #### [facility] [place] [address] Director Pharmacy Services: Rory Bell MD MCHC (RBC) [Mass/Vol] 35.0 g/dL Normal 32.0-36.[address] [facility] Comment on above: Performed By: #### 8 09, 37570, 375, 6399 #### [facility] [place] [address] Director Pharmacy Services: Rory Bell MD MCV (RBC) [Entitic vol] 91.3 fL Normal 80.0-100.0 [facility] Comment on above: Performed By: #### 8 09, , 375, 6399 #### [facility] [place] [address] Director Pharmacy Services: Rory Bell MD Monocytes (Bld) [#/Vol] 0.669 10*3/uL Normal 200-950 [facility] Comment on above: Performed By: #### 8 09, , 375, 6399 #### [facility] [place] [address] Director Pharmacy Services: Rory Bell MD Monocytes/100 WBC (Bld) 9.7 % Normal [facility] Comment on above: Performed By: #### 8 09, , , 6399 #### [facility] [place] [address] Director Pharmacy Services: Rory Bell MD Neutrophils (Bld) [#/Vol] 4.168 10*3/uL Normal 2723-9816 [facility] Comment on above: Performed By: #### 8 09, , 375, 6399 #### [facility] [place] [address] Director Pharmacy Services: Rory Bell MD Neutrophils/100 WBC (Bld) 60.4 % Normal [facility] Comment on above: Performed By: #### 8 09, , , 6399 #### [facility] [place] [address] Director Pharmacy Services: Rory Bell MD Platelet mean volume (Bld) [Entitic vol] 10.2 fL Normal 7.5-12.5 [facility] Comment on above: Performed By: #### 8 09, 51961, 375, 6399 #### [facility] [place] [address] Director Pharmacy Services: Rory Bell MD Platelets (Bld) [#/Vol] 276 10*3/uL Normal 140-400 [facility] Comment on above: Performed By: #### 8 09, 51537, 375, 6399 #### [facility] [place] [address] Director Pharmacy Services: Rory Bell MD RBC (d) [#/Vol] 4.70 10*6/uL Normal 4.20-5.80 [facility] Comment on above: Performed By: #### 8 09, 18325, 375, 6399 #### [facility] [place] [address] Director Pharmacy Services: Rory Bell MD WBC (d) [#/Vol] 6.9 10*3/uL Normal 3.8-10.8 [facility] Comment on above: Performed By: #### 8 09, 80099, 375, 6399 #### [facility] [place] [address] Director Pharmacy Services: Rory Bell MD CREATININEon 08-24-2022 Creatinine [Mass/Vol] 1.02 mg/dL Normal 0.70-1.30 [facility] Comment on above: Order Comment: FASTI NG:NO FASTING: NO Performed By: #### 8 09, 89454, 375, 6399 #### [facility] [place] [address] Director Pharmacy Services: Rory Bell MD GFR/1.73 sq M.predicted among non-blacks MDRD (S/P/Bld) [Vol rate/Area] 85 mL/min/{1.73_m2} Normal > OR = 60 [facility] Comment on above: Order Comment: FASTI NG:NO FASTING: NO Result Comment: The eGFR is based on the CKD-EPI 2020 equation. To calculate the new eGFR from a previous Creatinine or Cystatin C result, go to https://www.kidney.org/professionals/ kdoqi/gfr%5Fcalculator Performed By: #### 8 09, 58202, 375, 6399 #### [facility] [place] [address] Director Pharmacy Services: Rory Bell MD HEPATIC FUNCTION PANELon Albumin [Mass/Vol] 4.2 g/dL Normal 3.6-5.1 [facility] Comment on above: Performed By: #### 8 09, 93829, 375, 6399 #### [facility] [place] [address] Director Pharmacy Services: Rory Bell MD Albumin/Globulin [Mass ratio] 1.6 {ratio} Normal 1.0-2.5 [facility] Comment on above: Performed By: #### 8 09, 04294, 375, 6399 #### [facility] [place] [address] Director Pharmacy Services: Rory Bell MD ALP [Catalytic activity/Vol] 71 U/L Normal 35-144 [facility] Comment on above: Performed By: #### 8 09, 56732, 375, 6399 #### [facility] [place] [address] Director Pharmacy Services: Rory Bell MD ALT [Catalytic activity/Vol] 30 U/L Normal 9-46 [facility] Comment on above: Performed By: #### 8 09, 97027, 375, 6399 #### [facility] [place] [address] Director Pharmacy Services: Rory Bell MD AST [Catalytic activity/Vol] 22 U/L Normal 10-35 [facility] Comment on above: Performed By: #### 8 09, 69744, 375, 6399 #### [facility] [place] [address] Director Pharmacy Services: Rory Bell MD Bilirubin [Mass/Vol] 0.6 mg/dL Normal 0.2-1.2 [facility] Comment on above: Performed By: #### 8 09, 14280, 375, 6399 #### [facility] [place] [address] Director Pharmacy Services: Rory Bell MD BILIRUBIN, INDIRECT 0.5 mg/dL (calc) Normal 0.2-1.2 [facility] Comment on above: Performed By: #### 8 09, 93419, 375, 6399 #### [facility] [place] [address] Director Pharmacy Services: Rory Bell MD Bilirubin.indirect [Mass/Vol] 0.1 mg/dL Normal < OR = 0.2 [facility] Comment on above: Performed By: #### 8 09, 24753, 375, 6399 #### [facility] [place] [address] Director Pharmacy Services: Rory Bell MD Globulin (S) [Mass/Vol] 2.7 g/dL Normal 1.9-3.7 [facility] Comment on above: Performed By: #### 8 09, 35166, 375, 6399 #### [facility] [place] [address] Director Pharmacy Services: Rory Bell MD Protein [Mass/Vol] 6.9 g/dL Normal 6.1-8.1 [facility] Comment on above: Performed By: #### 8 09, 71545, 375, 6399 #### [facility] [place] [address] Director Pharmacy Services: Rory Bell MD SED RATE BY MODIFIED WESTERG RENon 08-24-2022 SED RATE BY MODIFIED WESTERGREN 14 mm/h Normal < OR = 20 [facility] Comment on above: Performed By: #### 8 09, 85411, 375, 6399 #### [facility] [place] [address] Director Pharmacy Services: Rory Bell MD COVID + FLU Quick Testingon 07-20-2022 SARS-CoV-2 (COVID-19) RNA WALTER+probe Ql (Unsp spec) Negative [facility] [employer] Other COVID + FLU Quick Testing Negative [employer] Other Alanine aminotransferase [En zymatic activity/volume] in Serum or PlasmaOrdered By: Justo Carter on 07-03-2022 ALT [Catalytic activity/Vol] 29 U/L 7-52 [facility] Albumin [Mass/volume] in Ser um or Plasma by Bromocresol green (BCG) dye binding methoOrdered By: Justo Carter on 07-03-2022 Albumin BCG dye [Mass/Vol] 4.5 g/dL 3.5-5.7 [facility] Alkaline phosphatase [Enzyma tic activity/volume] in Serum or PlasmaOrdered By: Justo Carter on 07-03-2022 ALP [Catalytic activity/Vol] 75 U/L 34-104 [facility] Aspartate aminotransferase [ Enzymatic activity/volume] in Serum or PlasmaOrdered By: Justo Carter on 07-03-2022 AST [Catalytic activity/Vol] 25 U/L 13-39 [facility] Basophils Auto (Bld) [#/Vol] Ordered By: Justo Carter on 07-03-2022 Basophils (Bld) [#/Vol] 0.1 10*3/uL 0.0-0.2 [facility] Basophils/100 WBC Auto (Bld) Ordered By: Justo Carter on 07-03-2022 Basophils/100 WBC (Bld) 0.8 % . [facility] Bilirubin.total [Mass/volume ] in Serum or PlasmaOrdered By: Justo Carter on 07-03-2022 Bilirubin [Mass/Vol] 0.7 mg/dL 0.3-1.0 [facility] C reactive protein [Mass/vol ume] in Serum or PlasmaOrdered By: Justo Carter on 07-03-2022 CRP [Mass/Vol] 0.9 mg/dL 0.0-0.4 [facility] Calcium [Mass/volume] in Ser um or PlasmaOrdered By: Justo Carter on 07-03-2022 Calcium [Mass/Vol] 9.5 mg/dL 8.6-10.3 [facility] Carbon dioxide, total [Moles /volume] in Serum or PlasmaOrdered By: Justo Carter on 07-03-2022 CO2 [Moles/Vol] 29.1 mmol/L 21.0-31.0 [facility] Chloride [Moles/volume] in S elissa or PlasmaOrdered By: Justo Carter on 07-03-2022 Chloride [Moles/Vol] 105 mmol/L 98-107 [facility] Creatinine [Mass/volume] in Serum or PlasmaOrdered By: Justo Carter on 07-03-2022 Creatinine [Mass/Vol] 1.15 mg/dL 0.70-1.30 [facility] Eosinophils Auto (Bld) [#/Vo l]Ordered By: Justo Carter on 07-03-2022 Eosinophils (Bld) [#/Vol] 0.3 10*3/uL 0.0-0.45 [facility] Eosinophils/100 WBC Auto (Bl d)Ordered By: Justo Carter on 07-03-2022 Eosinophils/100 WBC (Bld) 4.4 % . [facility] Erythrocyte distribution wid th Auto (RBC) [Ratio]Ordered By: Justo Carter on 07-03-2022 Erythrocyte distribution width (RBC) [Ratio] 13.1 % 12.0-14.8 [facility] Erythrocyte sedimentation ra te by Photometric methodOrdered By: Justo Carter on 07-03-2022 ESR Photometric method (Bld) [Velocity] 34 mm/hr 0-19 [facility] Globulin Calc (S) [Mass/Vol] Ordered By: Justo Carter on 07-03-2022 Globulin (S) [Mass/Vol] 3.0 g/dL F [facility] Glucose [Mass/volume] in Ser um or PlasmaOrdered By: Justo Carter on 07-03-2022 Glucose [Mass/Vol] 95 mg/dL 74-109 [facility] Comment on above: ADA recommended refe rence rangeRandom Glucose Reference Range is dependent on time and content of last meal. Glucose of more than 200 mg/dL in a nonstressed, ambulatory subject supports the diagnosis of Diabetes Mellitus. Hematocrit Auto (Bld) [Volum e fraction]Ordered By: Justo Carter on 07-03-2022 Hematocrit (Bld) [Volume fraction] 44.1 % 38.8-50.0 [facility] Hemoglobin [Mass/volume] in BloodOrdered By: Justo Carter on 07-03-2022 Hemoglobin (Bld) [Mass/Vol] 15.1 g/dL 13.0-17.0 [facility] Hepatitis B virus surface Ag [Presence] in Serum or Plasma by ImmunoassayOrdered By: Justo Carter on 07-03-2022 HBV surface Ag IA Ql Negative Negative [facility] Hepatitis C virus IgG Ab [Pr esence] in Serum or Plasma by ImmunoassayOrdered By: Justo Carter on 07-03-2022 HCV IgG IA Ql Non-Reactive Non Reactive [facility] - Chemistry and C hemistry - challengeOrdered By: Justo Carter on 07-03-2022 GFR/1.73 sq M.predicted MDRD (S/P/Bld) [Vol rate/Area] mL/min/{1.73_m2} [facility] Leukocytes [#/volume] correc ramone for nucleated erythrocytes in Blood by Automated counOrdered By: Justo Carter on 07-03-2022 WBC corrected for nucl RBC Auto (Bld) [#/Vol] 7.8 10*3/uL 4.1-10.5 [facility] Lymphocytes Auto (Bld) [#/Vo l]Ordered By: Justo Carter on 07-03-2022 Lymphocytes (Bld) [#/Vol] 1.5 10*3/uL 1.00-4.8 [facility] Lymphocytes/100 WBC Auto (Bl d)Ordered By: Justo Carter on 07-03-2022 Lymphocytes/100 WBC (Bld) 19.4 % . [facility] MCH Auto (RBC) [Entitic mass ]Ordered By: Justo Carter on 07-03-2022 MCH (RBC) [Entitic mass] 31.6 pg 27.5-35.2 [facility] MCHC Auto (RBC) [Mass/Vol]Or dered By: Justo Carter on 07-03-2022 MCHC (RBC) [Mass/Vol] 34.2 g/dL 32.5-35.6 [facility] MCV Auto (RBC) [Entitic vol] Ordered By: Justo Carter on 07-03-2022 MCV (RBC) [Entitic vol] 92.4 fL 83.5-101 F [facility] Monocytes Auto (Bld) [#/Vol] Ordered By: Justo Carter on 07-03-2022 Monocytes (Bld) [#/Vol] 0.6 10*3/uL 0.0-0.8 [facility] Monocytes/100 WBC Auto (Bld) Ordered By: Justo Carter on 07-03-2022 Monocytes/100 WBC (Bld) 8.2 % . [facility] Neutrophils Auto (Bld) [#/Vo l]Ordered By: Justo Carter on 07-03-2022 Neutrophils (Bld) [#/Vol] 5.2 10*3/uL 1.8-7.7 [facility] Neutrophils/100 WBC Auto (Bl d)Ordered By: Justo Carter on 07-03-2022 Neutrophils/100 WBC (Bld) 67.2 % . [facility] No Panel InformationOrdered By: Justo Carter on 07-03-2022 Hepatitis B Core Total Antibody Negative Negative [facility] Comment on above: Performed at: [address] Director: Riley Donnelly PhD, Phone: [phone] Hepatitis C Interpretation See comment . [facility] Comment on above: Not infected with HC V unless early or acute infection issuspected (which may be delayed in an immunocompromisedindividual), or other evidence exists to indicate HCVinfection. Hepatitis C RNA Quantitative N/A [facility] Creatinine Clearance (Chem N/A [facility] Nucleated erythrocytes [Pres ence] in Blood by Automated countOrdered By: Justo Carter on 07-03-2022 Nucleated RBC Auto Ql (Bld) 0.1 /100{WBC} 0-0.5 [facility] Platelet mean volume Auto (B ld) [Entitic vol]Ordered By: Justo Carter on 07-03-2022 Platelet mean volume (Bld) [Entitic vol] 8.0 fL 6.6-10.1 [facility] Platelets Auto (Bld) [#/Vol] Ordered By: Justo Carter on 07-03-2022 Platelets (Bld) [#/Vol] 277 10*3/uL 150-450 [facility] Potassium [Moles/volume] in Serum or PlasmaOrdered By: Justo Carter on 07-03-2022 Potassium [Moles/Vol] 3.8 mmol/L 3.5-5.1 [facility] Protein [Mass/volume] in Ser um or PlasmaOrdered By: Justo Carter on 07-03-2022 Protein [Mass/Vol] 7.5 g/dL 6.4-8.9 [facility] RBC Auto (Bld) [#/Vol]Ordere d By: Justo Carter on 07-03-2022 RBC (Bld) [#/Vol] 4.77 10*6/uL 3.90-5.60 [facility] Serum hepatitis B virus surf nisreen antibody detectionOrdered By: Justo Carter on 07-03-2022 HBV surface Ab Ql (S) Non-Reactive . [facility] Comment on above: Non Reactive: Incons istent with immunity, less than 10 mIU/mL Reactive: Consistent with immunity, greater than 9.9 mIU/mL Serum or plasma albumin/glob ulin mass ratioOrdered By: Justo Carter on 07-03-2022 Albumin/Globulin [Mass ratio] 1.5 {ratio} [facility] Serum or plasma anion gap de terminationOrdered By: Justo Carter on 07-03-2022 Anion gap [Moles/Vol] 10.7 mmol/L 6.0-15.0 [facility] Sodium [Moles/volume] in Ser um or PlasmaOrdered By: Justo Carter on 07-03-2022 Sodium [Moles/Vol] 141 mmol/L 136-145 [facility] Urea nitrogen [Mass/volume] in Serum or PlasmaOrdered By: Justo Carter on 07-03-2022 Urea nitrogen [Mass/Vol] 21 mg/dL 7-25 [facility] WBC Auto (Bld) [#/Vol]Ordere d By: Justo Carter on 07-03-2022 WBC (Bld) [#/Vol] 7.8 10*3/uL 4.1-10.5 [facility] RAD - MISCon 04-19-2022 RAD - MISC [id number] .00CD:127 Normal [facility] CBC AUTO DIFFon 04-07-2022 BASO # 0.1 103/ul Normal 0.0-0.1 [facility] Comment on above: Performed By: #### C BC ####[facility] [address] [place] [address]Dr. Indira Francis Basophils/100 WBC (Bld) 0.7 % Normal 0.2-2.0 [facility] Comment on above: Performed By: #### C BC ####[facility] [address] [place] [address]Dr. Indira Francis EO # 0.0 103/ul Normal 0.0-0.7 [facility] Comment on above: Performed By: #### C BC ####[facility] [address] [place] [address]Dr. Indira Francis Eosinophils/100 WBC (Bld) 0.2 % Critically low 0.9-7.0 [facility] Comment on above: Performed By: #### C BC ####[facility] [address] [place] [address]Dr. Indira Francis Erythrocyte distribution width (RBC) [Ratio] 12.6 % Normal 11.0-15.0 [facility] Comment on above: Performed By: #### C BC ####[facility] [address] [place] [address]Dr. Indira Francis Hematocrit (Bld) [Volume fraction] 43.3 % Normal 42.0-54.0 [facility] Comment on above: Performed By: #### C BC ####[facility] [address] [place] [address]Dr. Indira Francis Hemoglobin (Bld) [Mass/Vol] 14.6 g/dL Normal 14.0-18.0 [facility] Comment on above: Performed By: #### C BC ####[facility] [address] [place] [id number]. Indira Francis IG # 0.03 10e3/ul Normal 0.00-0.03 [facility] Comment on above: Performed By: #### C BC ####[facility] [address] [place] [id number]. Indira Francis IG % 0.3 % Normal 0.0-0.5 [facility] Comment on above: Performed By: #### C BC ####[facility] [address] [place] [id number] Francis LYMPH # 0.5 103/ul Critically low 1.2-3.8 [facility] Comment on above: Performed By: #### C BC ####[facility] [address] [place] [id number] Francis Lymphocytes/100 WBC (Bld) 5.5 % Critically low 20.5-60.0 [facility] Comment on above: Performed By: #### C BC ####[facility] [address] [place] [address]DrMaxx Francis MANUAL DIFF REQ NO Normal [facility] Comment on above: Performed By: #### C BC ####[facility] [address] [place] [id number]. Indira Francis MCH (RBC) [Entitic mass] 30.9 pg Normal 25.9-34.0 [facility] Comment on above: Performed By: #### C BC ####[facility] [address] [place] [id number] Francis MCHC (RBC) [Mass/Vol] 33.7 g/dL Normal 29.9-35.2 [facility] Comment on above: Performed By: #### C BC ####[facility] [address] [place] [id number] Francis MCV (RBC) [Entitic vol] 91.7 fL Normal 80.0-94.0 [facility] Comment on above: Performed By: #### C BC ####[facility] [address] [place] [address]DrMaxx Francis MONO # 0.8 103/ul Normal 0.3-0.8 [facility] Comment on above: Performed By: #### C BC ####[facility] [address] [place], [place] [address]Xc. Indira Francis Monocytes/100 WBC (Bld) 8.5 % Normal 1.7-12.0 [facility] Comment on above: Performed By: #### C BC ####[facility] [address] [place], [place] [address]Aw. Indira Francis NEUT # 7.8 103/ul Critically high 1.4-6.5 [facility] Comment on above: Performed By: #### C BC ####[facility] [address] [place] [id number]. Indira Francis Neutrophils/100 WBC (Bld) 84.8 % Critically high 43.0-75.0 [facility] Comment on above: Performed By: #### C BC ####[facility] [address] [place] [id number]. Indira Francis Platelet mean volume (Bld) [Entitic vol] 9.4 fL Critically low 9.5-13.5 [facility] Comment on above: Performed By: #### C BC ####[facility] [address] [place] [id number]. Indira Francis PLT 241 103/ul Normal 150-450 [facility] Comment on above: Performed By: #### C BC ####[facility] [address] [place] [id number]. Indira Francis RBC 4.72 106/ul Normal 4.70-6.10 [facility] Comment on above: Performed By: #### C BC ####[facility] [address] [place] [id number]. Indira Francis WBC 9.2 103/ul Normal 4.0-11.0 [facility] Comment on above: Performed By: #### C BC ####[facility] [address] [place], [place] [address]VhMaxx Indira [address] CT STROKE HEAD WOon 04-07-20 CT STROKE HEAD WO NONCONTRAST CT SCAN OF THE HEAD CT STROKE HEAD WO HISTORY: Pain TECHNIQUE: Multiple axial images are taken from the level the vertex down to the base of the skull without the use of IV contrast. Images were then reconstructed in the sagittal and coronal planes. This exam was performed according to our departmental dose-optimization program which includes use of Automated Exposure Control, adjustment of the mA and/or kV according to patient size and/or use of iterative reconstruction technique. COMPARISON: MRI brain dated 01/11/2022 FINDINGS: Brain Parenchyma: No intracranial mass. No intracranial hemorrhage. Diggs-white matter within expected limits of normal for patient's age. Posterior fossa: Normal. Midline shift: None Extra-axial fluid collection: None Ventricles: Normal. Mastoid air cells: Normal. Sinuses: Normal. Cranium: No depressed skull fracture. Soft tissues: Normal. Orbits: Normal. IMPRESSION: 1. No noncontrast CT evidence for acute intracranial pathology. 2. If symptoms continue and if clinically indicated, MRI may help better delineate. Electronically authenticated by: GIBSON MARINELLI Date: 2022-04-07 20:48 Normal [facility] PROF 14(COMP METB)on 04-07- 022 Albumin [Mass/Vol] 3.6 g/dL Normal 3.4-5.0 [facility] Comment on above: Performed By: #### C MP #### [facility] [address] [place] [address] Dr. Indira Francis Albumin/Globulin [Mass ratio] 0.9 {ratio} Normal [facility] Comment on above: Performed By: #### C MP #### [facility] [address] [place] [address] Dr. Indira Francis ALP [Catalytic activity/Vol] 88 U/L Normal 46-116 [facility] Comment on above: Performed By: #### C MP #### [facility] [address] [place] [address] Dr. Indira Francis ALT [Catalytic activity/Vol] 30 U/L Normal 16-63 [facility] Comment on above: Performed By: #### C MP #### [facility] [address] [place] [address] Dr. Indira Francis Anion gap [Moles/Vol] 16.2 mmol/L Normal [facility] Comment on above: Performed By: #### C MP #### [facility] [address] [place] [address] [address] Indira Francis AST [Catalytic activity/Vol] 24 U/L Normal 15-37 [facility] Comment on above: Performed By: #### C MP #### [facility] [address] [place] [address] [address] Indira Francis Bilirubin [Mass/Vol] 0.8 mg/dL Normal 0.2-1.0 [facility] Comment on above: Performed By: #### C MP #### [facility] [address] [place] [address] [address] Indira Francis Calcium [Mass/Vol] 9.3 mg/dL Normal 8.5-10.1 [facility] Comment on above: Performed By: #### C MP #### [facility] [address] [place] [address] [address] Indira Francis Chloride [Moles/Vol] 103 mmol/L Normal 98-107 [facility] Comment on above: Performed By: #### C MP #### [facility] [address] [place] [address] [address] Indira Francis CO2 [Moles/Vol] 22.7 mmol/L Normal 21.0-32.0 [facility] Comment on above: Performed By: #### C MP #### [facility] [address] [place] [address] [address] Indira Francis Creatinine [Mass/Vol] 1.27 mg/dL Normal 0.70-1.30 [facility] Comment on above: Performed By: #### C MP #### [facility] [address] [place] [address] [address] Indira Francis EGFR-AF JORDANIAN >60 Normal >=60 [facility] Comment on above: Performed By: #### C MP #### [facility] [address] [place] [address] [address] Indira Francis EGFR-NON AF JORDANIAN 58 mL/min/1.73m2 Critically low >=60 [facility] Comment on above: Performed By: #### C MP #### [facility] [address] [place] [address] [address] Indira Francis Globulin (S) [Mass/Vol] 4.1 g/dL Normal [facility] Comment on above: Performed By: #### C MP #### [facility] [address] [place] [address] [address] Indira Francis Glucose [Mass/Vol] 117 mg/dL Critically high 74-106 [facility] Comment on above: Performed By: #### C MP #### [facility] [address] [place] [address] [address] Indira Francis Potassium [Moles/Vol] 3.9 mmol/L Normal 3.5-5.1 [facility] Comment on above: Performed By: #### C MP #### [facility] [address] [place] [address] [address] Indira Francis Protein [Mass/Vol] 7.7 g/dL Normal 6.4-8.2 [facility] Comment on above: Performed By: #### C MP #### [facility] [address] [place] [address] [address] Indira Francis Sodium [Moles/Vol] 138 mmol/L Normal 136-145 [facility] Comment on above: Performed By: #### C MP #### [facility] [address] [place] [address] [address] Indira Francis Urea nitrogen [Mass/Vol] 19.0 mg/dL Critically high 7.0-18.0 [facility] Comment on above: Performed By: #### C MP #### [facility] [address] [place] [address] [address] Indira Francis Urea nitrogen/Creatinine [Mass ratio] 15.0 mg/mg Normal [facility] Comment on above: Performed By: #### C MP #### [facility] [address] [place] [address] Dr. Indira Francis TROPONIN, HIGH SENSITIVITYon 04-07-2022 HSTROP 5.9 pg/mL Normal 4.0-76.1 [facility] Comment on above: Result Comment: CUT- OFF POINTS HAVE BEEN ESTABLISHED BASED ON THE FOURTH UNIVERSAL DEFINITIONS OF MYOCARDIAL INFARCTION. THE UPPER REFERENCE LIMIT (URL) OF TROPONIN, DEFINED THE 99TH PERCENTILE OF cTnI DISTRIBUTION IN A REFERENCE POPULATION, HAS BEEN CONFIRMED THE DECISION THRESHOLD FOR [place] DIAGNOSIS. Performed By: #### H KRISTEN #### [facility] [address] [place] [id number] Indira Francis Formson 04-01-2022 Forms [id number] .[id number]:127 Normal [facility] Facesheeton 03-07-2022 Facesheet [id number] .[id number]:127 Normal [facility] Ambulatory Visit Summaryon 1 05-06-2021 Ambulatory Visit Summary ANIRUDH JOHNSTON :1960 Visit Date:03/06/2022 Ambulatory Visit Instructions Your Diagnosis Cough in adult patient Chronic GERD Tests Performed Modified Barium Swallow - Adult -- Results Pending -- Please visit your patient portal for your results or contact your primary care physician. Your Care Team Attending Physician - MARIBELL SEGURA, Sera Gandhi Primary Care Physician - REZA DILLON MD This Is Your Medications List betamethasone-clotrim azole topical (betamethasone-clotri mazole Top 0.05%-1% Crm 15 gram) citalopram (CeleXA 20 mg Tab) nabumetone (nabumetone 500 mg Tab) pantoprazole (Pantoprazole [address] Tab) sucralfate (sucralfate 1 g Tab) tamsulosin (tamsulosin 0.4 mg Cap) Procedures Performed Arthroscopy of knee, Open reduction of dislocation of wrist. Discharge Vitals Heart Rate (Peripheral) 76 Respiratory Rate 16 Blood Pressure 128/94 Height 180.3 cm Height 71 in Weight 133 kg Weight 292.6 lb BMI 40.91 Medications What How Much When Instructions Unchanged betamethasone-clotrim azole topical (betamethasone-clotri mazole Top 0.05%-1% Crm 15 gram) 1 Application Topical 2 times a day Unchanged citalopram (CeleXA 20 mg Tab) 1 Tablets By Mouth Every day Unchanged nabumetone (nabumetone 500 mg Tab) 1 Tablets By Mouth 2 times a day as needed for Pain Unchanged pantoprazole (Pantoprazole [address] Tab) 1 Tablets By Mouth 2 times a day Unchanged sucralfate (sucralfate 1 g Tab) 1 Tablets By Mouth Four times a day (before meals and at bedtime) Unchanged tamsulosin (tamsulosin 0.4 mg Cap) 1 Capsules By Mouth Every day Allergies Tylenol (Rash) Problems Ongoing - Any problem that you are currently receiving treatment for. BMI 40.0-44.9, adult BPH (benign prostatic hyperplasia) Chronic eczema Chronic GERD Cough in adult patient VERONICA (generalized anxiety disorder) GERD (gastroesophageal reflux disease) Hiatal hernia Morbid obesity Obstructive sleep apnea syndrome Psoriasis Normal [facility] Physician Referralon 022 Physician Referral [phone] [id number] Normal [facility] CBC AUTO DIFFon 01-28-2022 BASO # 0.1 103/ul Normal 0.0-0.1 [facility] Comment on above: Performed By: #### C BC #### [facility] [address] [place] [address] Dr. Indira Francis Basophils/100 WBC (Bld) 0.9 % Normal 0.2-2.0 [facility] Comment on above: Performed By: #### C BC #### [facility] [address] [place] [address] Dr. Indira Francis EO # 0.3 103/ul Normal 0.0-0.7 [facility] Comment on above: Performed By: #### C BC #### [facility] [address] [place] [address] Dr. Indira Francis Eosinophils/100 WBC (Bld) 3.6 % Normal 0.9-7.0 [facility] Comment on above: Performed By: #### C BC #### [facility] [address] [place] [address] Dr. Indira Francis Erythrocyte distribution width (RBC) [Ratio] 12.8 % Normal 11.0-15.0 [facility] Comment on above: Performed By: #### C BC #### [facility] [address] [place] [address] Dr. Indira Francis Hematocrit (Bld) [Volume fraction] 45.4 % Normal 42.0-54.0 [facility] Comment on above: Performed By: #### C BC #### [facility] [address] [place] [address] Dr. Indira Francis Hemoglobin (Bld) [Mass/Vol] 14.8 g/dL Normal 14.0-18.0 [facility] Comment on above: Performed By: #### C BC #### [facility] [address] [place] [address] Dr. Indira Francis IG # 0.03 10e3/ul Normal 0.00-0.03 [facility] Comment on above: Performed By: #### C BC #### [facility] [address] [place] [address] Dr. Indira Francis IG % 0.4 % Normal 0.0-0.5 [facility] Comment on above: Performed By: #### C BC #### [facility] [address] [place] [address] Dr. Indira Francis LYMPH # 1.5 103/ul Normal 1.2-3.8 [facility] Comment on above: Performed By: #### C BC #### [facility] [address] [place] [address] Dr. Indira Francis Lymphocytes/100 WBC (Bld) 18.8 % Critically low 20.5-60.0 [facility] Comment on above: Performed By: #### C BC #### [facility] [address] [place] [address] Dr. Indira Francis MANUAL DIFF REQ NO Normal [facility] Comment on above: Performed By: #### C BC #### [facility] [address] [place] [address] Dr. Indira Francis MCH (RBC) [Entitic mass] 31.0 pg Normal 25.9-34.0 [facility] Comment on above: Performed By: #### C BC #### [facility] [address] [address] [address] Indira Francis MCHC (RBC) [Mass/Vol] 32.6 g/dL Normal 29.9-35.2 [facility] Comment on above: Performed By: #### C BC #### [facility] [address] [place] [address] Dr. Indira Francis MCV (RBC) [Entitic vol] 95.0 fL Critically high 80.0-[address] [facility] Comment on above: Performed By: #### C BC #### [facility] [address] [place] [address] Dr. Indira Francis MONO # 0.7 103/ul Normal 0.3-0.8 [facility] Comment on above: Performed By: #### C BC #### [facility] [address] [place] [address] Dr. Indira Francis Monocytes/100 WBC (Bld) 8.4 % Normal 1.7-12.0 [facility] Comment on above: Performed By: #### C BC #### [facility] [address] [place] [address] Dr. Indira Francis NEUT # 5.5 103/ul Normal 1.4-6.5 [facility] Comment on above: Performed By: #### C BC #### [facility] [address] [place] [address] Dr. Indira Francis Neutrophils/100 WBC (Bld) 67.9 % Normal 43.0-75.0 [facility] Comment on above: Performed By: #### C BC #### [facility] [address] [place] [address] Dr. Indira Francis Platelet mean volume (Bld) [Entitic vol] 9.9 fL Normal 9.5-13.5 [facility] Comment on above: Performed By: #### C BC #### [facility] [address] [place] [address] Dr. Indira Francis PLT 256 103/ul Normal 150-450 [facility] Comment on above: Performed By: #### C BC #### [facility] [address] [place] [address] Dr. Indira Francis RBC 4.78 106/ul Normal 4.70-6.10 [facility] Comment on above: Performed By: #### C BC #### [facility] [address] [address] [address] Indira Francis WBC 8.0 103/ul Normal 4.0-11.0 [facility] Comment on above: Performed By: #### C BC #### [facility] [address] [address] [address] Indira Francis GLYCOHEMOGLOBIN A1Con 2021 ADA RECOMMENDATION SEE BELOW Normal [facility] Comment on above: Result Comment: ADA RECOMMENDED LIMIT 4.0 - 6.0 ADA THERAPEUTIC TARGET < 7.0 ACTION SUGGESTED > 7.0 Performed By: #### A 1C ####[facility] [address] [address]DrMaxx Francis Glucose [Mass/Vol] 117 mg/dL Normal [facility] Comment on above: Performed By: #### A 1C ####[facility] [address] [address]DrMaxx Francis HbA1c (Bld) [Mass fraction] 5.7 % Normal 4.5-6.2 [facility] Comment on above: Performed By: #### A 1C ####[facility] [address] [address]DrMaxx Francis LIPID PROFILEon 01-28-2022 CHOL-HDL RATIO NORM SEE BELOW Normal [facility] Comment on above: Result Comment: 3.3 - 4.4 LOW RISK 4.4 - 7.1 AVERAGE RISK 7.1 - 11.0 MODERATE RISK >11.0 HIGH RISK Performed By: #### B MP, TSH, LIVER, LIPID ####[facility] [address] [address]DrMaxx Francis Cholesterol [Mass/Vol] 209 mg/dL Critically high <=200 [facility] Comment on above: Performed By: #### B MP, TSH, LIVER, LIPID ####[facility] [address] [address]DrMaxx Francis Cholesterol in HDL [Mass/Vol] 37 mg/dL Critically low 40-60 [facility] Comment on above: Performed By: #### B MP, TSH, LIVER, LIPID ####[facility] [address] [id number]. Indira Francis Cholesterol in LDL [Mass/Vol] 150.6 mg/dL Normal [facility] Comment on above: Performed By: #### B MP, TSH, LIVER, LIPID ####[facility] [address] [id number]. Indira Francis Cholesterol.total/Aysha sterol in HDL [Mass ratio] 5.6 {ratio} Normal [facility] Comment on above: Performed By: #### B MP, TSH, LIVER, LIPID ####[facility] [address] [id number]. Indira Francis HDL NORMAL > or = 60 mg/dl - LO W CARDIOVASCULAR RISK <40 mg/dl - HIGH CARDIOVASCULAR RISK Normal [facility] Comment on above: Performed By: #### B MP, TSH, LIVER, LIPID ####[facility] [address] [id number]. Indira Francis LDL CALC NORMAL SEE BELOW Normal [facility] Comment on above: Result Comment: <100 mg/dl OPTIMAL 100 - 129 mg/dl NEAR OR ABOVE OPTIMAL 130 - 159 mg/dl BORDERLINE HIGH 160 - 189 mg/dl HIGH >190 mg/dl VERY HIGH Performed By: #### B MP, TSH, LIVER, LIPID ####[facility] [address] [id number]. Indira Francis Triglyceride [Mass/Vol] 107 mg/dL Normal <=150 T [facility] Comment on above: Performed By: #### B MP, TSH, LIVER, LIPID ####[facility] [address] [id number]. Indira Francis VLDL CALC 21.4 mg/dL Normal [facility] Comment on above: Performed By: #### B MP, TSH, LIVER, LIPID ####[facility] [address] [id number]. Indira Francis LIVER PROFILEon 10-10-2022 Albumin [Mass/Vol] 3.8 g/dL Normal 3.4-5.0 [facility] Comment on above: Performed By: #### B MP, TSH, LIVER, LIPID ####[facility] [address] [id number]. Indira Francis Albumin/Globulin [Mass ratio] 0.8 {ratio} Normal [facility] Comment on above: Performed By: #### B MP, TSH, LIVER, LIPID ####[facility] [address] [address]Dr. Indira Francis ALP [Catalytic activity/Vol] 87 U/L Normal 46-116 [facility] Comment on above: Performed By: #### B MP, TSH, LIVER, LIPID ####[facility] [address] [place], [place] [address]Dr. Indira Francis ALT [Catalytic activity/Vol] 39 U/L Normal 16-63 [facility] Comment on above: Performed By: #### B MP, TSH, LIVER, LIPID ####[facility] [address] [place], [place] [address]Dr. Indira Francis AST [Catalytic activity/Vol] 23 U/L Normal 15-37 [facility] Comment on above: Performed By: #### B MP, TSH, LIVER, LIPID ####[facility] [address] [address]Dr. Indira Francis BILI, CONJUGATED 0.1 mg/dL Normal 0.0-0.2 [facility] Comment on above: Performed By: #### B MP, TSH, LIVER, LIPID ####[facility] [address] [place], [place] [address]Dr. Indira Francis Bilirubin [Mass/Vol] 0.7 mg/dL Normal 0.2-1.0 [facility] Comment on above: Performed By: #### B MP, TSH, LIVER, LIPID ####[facility] [address] [place], [place] [address]Dr. Indira Francis Globulin (S) [Mass/Vol] 5.0 g/dL Normal T [facility] Comment on above: Performed By: #### B MP, TSH, LIVER, LIPID ####[facility] [address] [address]Dr. Indira Francis Protein [Mass/Vol] 8.8 g/dL Critically high 6.4-8.2 [facility] Comment on above: Performed By: #### B MP, TSH, LIVER, LIPID ####[facility] [address] [address]Dr. Amberhector Francis PROF CHEM 8 (BAS METB)on Anion gap [Moles/Vol] 15.7 mmol/L Normal [facility] Comment on above: Performed By: #### B MP, TSH, LIVER, LIPID ####[facility] [address] [address]Dr. Indira Francis Calcium [Mass/Vol] 9.5 mg/dL Normal 8.5-10.1 [facility] Comment on above: Performed By: #### B MP, TSH, LIVER, LIPID ####[facility] [address] [place], [place] [address]Dr. Indira Francis Chloride [Moles/Vol] 105 mmol/L Normal 98-107 [facility] Comment on above: Performed By: #### B MP, TSH, LIVER, LIPID ####[facility] [address] [address]Dr. Indira Francis CO2 [Moles/Vol] 24.9 mmol/L Normal 21.0-32.0 [facility] Comment on above: Performed By: #### B MP, TSH, LIVER, LIPID ####[facility] [address] [address]Dr. Amberhector Francis Creatinine [Mass/Vol] 1.06 mg/dL Normal 0.70-1.30 [facility] Comment on above: Performed By: #### B MP, TSH, LIVER, LIPID ####[facility] [address] [address]Dr. Indira Francis EGFR-AF JORDANIAN >60 Normal >=60 [facility] Comment on above: Performed By: #### B MP, TSH, LIVER, LIPID ####[facility] [address] [address]Dr. Indira Francis EGFR-NON AF JORDANIAN >60 Normal >=60 [facility] Comment on above: Performed By: #### B MP, TSH, LIVER, LIPID ####[facility] [address] [address]Dr. Indira Francis Glucose [Mass/Vol] 95 mg/dL Normal 74-106 [facility] Comment on above: Performed By: #### B MP, TSH, LIVER, LIPID ####[facility] [address] [address]Dr. Indira Francis Potassium [Moles/Vol] 4.6 mmol/L Normal 3.5-5.1 [facility] Comment on above: Performed By: #### B MP, TSH, LIVER, LIPID ####[facility] [address] [address]Dr. Indira Francis Sodium [Moles/Vol] 141 mmol/L Normal 136-145 [facility] Comment on above: Performed By: #### B MP, TSH, LIVER, LIPID ####[facility] [address] [address]Dr. Indira Francis Urea nitrogen [Mass/Vol] 21.0 mg/dL Critically high 7.0-18.0 [facility] Comment on above: Performed By: #### B MP, TSH, LIVER, LIPID ####[facility] [address] [address]Dr. Indira Francis Urea nitrogen/Creatinine [Mass ratio] 19.8 mg/mg Normal [facility] Comment on above: Performed By: #### B MP, TSH, LIVER, LIPID ####[facility] [address] [address]Dr. Indira Francis TSHon 01-28-2022 TSH 1.416 uIU/mL Normal 0.358-3.740 [facility] Comment on above: Performed By: #### B MP, TSH, LIVER, LIPID ####[facility] [address] [id number]. Indira Francis MRI BRAIN WO W CONon 022 MRI BRAIN WO W CON EXAMINATION: MRI BRAIN WO W CON HISTORY: Trigeminal neuralgia History of left-sided trigeminal neuralgia. COMPARISON: None. TECHNIQUE: Multiplanar, multisequence MRI images of the brain were obtained without and with contrast. FINDINGS: No restricted diffusion. No foci of abnormal signal. Ventricles and sulci normal in size. No hydrocephalus. No pathologic enhancement in the brain or cavernous sinuses. There is no midline shift, mass effect, or abnormal extraaxial fluid collections. Pituitary gland is not abnormally enlarged. There is no evidence for a Chiari I malformation. The orbital apices are clear. The flow voids of the [place] of [place] are visualized, implying that the vessels are patent. IMPRESSION: 1. Negative for acute infarct or acute process in the brain. No focal lesions in the brain parenchyma. No evidence for demyelinating process. 2. No enhancing mass lesions in the skull base or cavernous sinuses. If there is concern for vascular loop compression of the cisternal trigeminal nerves, then an MRI of the brain with thin section T2 images through the trigeminal nerves can be obtained. Electronically authenticated by: CONSUELO FRIAS Date: 2022-01-14 09:[address] [facility] XR FOREIGN BODY EYEon 2021 XR FOREIGN BODY EYE EXAMINATION: XR FOREIGN BODY EYE HISTORY: Foreign body in eye COMPARISON: No relevant comparison available. FINDINGS: ORBITS: Negative for a metallic foreign body. OTHER: Negative. IMPRESSION: No metallic foreign body in the orbits Electronically authenticated by: KEYLA MILLER Date: 2022-01-11 07:[address] [facility] XR Knee Left - OA Protocolon 06-12-2021 XR Knee Left - OA Protocol EXAM: XR BILATERAL KNEE STANDING WEIGHT-BEARING VIEW FINDINGS: Standing weight-bearing view demonstrates preservation of joint spaces without cortical or subchondral fracture suggested. Menisci are not calcified. IMPRESSION: Preserved tibiofemoral joint spaces. EXAM: XR LEFT KNEE SERIES FINDINGS: Mild patellofemoral joint space reduction is seen (normal patellar tracking). Tibial plateaus are maintained in height. No significant osteophyte formation is present. Menisci are non-calcified. IMPRESSION: Mild patellofemoral arthritis. Report reported and signed by Oscar Cabrera on 06/12/2021 1051 Normal [facility] Extractions Technologist COVID-19 Positive/Negativeon 07-21-2020 COVID-19 Positive/Negative Negative Negative [facility] Comment on above: Reference: NegativeT esting for SARS-CoV-2 by RT-PCRThis test was developed and its performance characteristics determined by [employer] and validated at the [facility]. This test has not been FDA cleared or approved. This test has been authorized by FDA under an Emergency Use Authorization (EUA). This test has been validated in accordance with the FDA's Guidance Document (Policy for Diagnostics Testing in Laboratories Certified to Perform High Complexity Testing under CLIA prior to Emergency Use Authorization for Coronavirus Disease-2019 during the Public Health Emergency) issued on July 22, 2019. This test is only authorized for the duration of time the declaration that circumstances exist justifying the authorization of the emergency use of in vitro diagnostic tests for detection of SARS-CoV-2 virus and/or diagnosis of COVID-19 infection under section 564(b)(1) of the Act, 21 U.S.C. 360bbb-3(b)(1), unless the authorization is terminated or revoked sooner. Otheron 07-21-2020 Coronavirus 2019 PCR Interp N/A [facility] Vital Signs Date Time Vital Sign Value Performing Clinician Facility 01-12-2024 17:38-0400 Body height 187.96 cm [facility] 01-12-2024 17:38-0400 Body mass index (BMI) [Ratio] 36.6 kg/m2 [facility] 01-12-2024 17:38-0400 Body temperature 98.1 [degF] [facility] 01-12-2024 17:38-0400 Body weight 129.44 kg [facility] 01-12-2024 17:38-0400 Diastolic blood pressure 90 mm[Hg] [facility] 01-12-2024 17:38-0400 Heart rate 65 /min [facility] 01-12-2024 17:38-0400 Respiratory rate 8 /min [facility] 01-12-2024 17:38-0400 SaO2% (BldA) [Mass fraction] 98 % [facility] 01-12-2024 17:38-0400 Systolic blood pressure 145 mm[Hg] [facility] 08-26-2023 09:03-0400 Body height 187.96 cm [facility] 08-26-2023 09:03-0400 Body mass index (BMI) [Ratio] 35.9 kg/m2 [facility] 08-26-2023 09:03-0400 Body weight 127 kg [facility] 04-25-2023 09:00-0500 Body height 187.96 cm Grady Pottsy Other [facility] [employer] Other 04-25-2023 09:00-0500 Body mass index (BMI) [Ratio] 35.95 kg/m2 Grady Ditty Other [facility] Other 04-25-2023 09:00-0500 Body weight 127.01 kg Grady Ditty Other [facility] Other 01-28-2023 09:15-0400 Body height 187.96 cm Grady Ditty Other [facility] Other 01-28-2023 09:15-0400 Body mass index (BMI) [Ratio] 35.69 kg/m2 Grady Ditty Other [facility] Other 01-28-2023 09:15-0400 Body weight 126.1 kg Grady Ditty Other [facility] Other 01-28-2023 09:15-0400 Diastolic blood pressure 77 mm[Hg] Grady Ditty Other [facility] Other 01-28-2023 09:15-0400 Systolic blood pressure 125 mm[Hg] Grady Ditty Other [facility] Other 07-20-2022 11:05-0400 Body height 187.96 cm Marta Niño Other [facility] Other 07-20-2022 11:05-0400 Body mass index (BMI) [Ratio] 35.95 kg/m2 Marta Niño Other [facility] Other 07-20-2022 11:05-0400 Body temperature 97.3 [degF] Marta Niño Other [facility] Other 07-20-2022 11:05-0400 Body weight 127.01 kg Marta Niño Other [facility] Other 07-20-2022 11:05-0400 Diastolic blood pressure 85 mm[Hg] Marta Niño Other [facility] Other 07-20-2022 11:05-0400 Respiratory rate 18 /min Marta Niño Other [facility] Other 07-20-2022 11:05-0400 SaO2% (BldA) [Mass fraction] 96 % Marta Niño Other [facility] Other 07-20-2022 11:05-0400 Systolic blood pressure 118 mm[Hg] Marta Niño Other [facility] Other 03-06-2022 15:33-0500 Blood Pressure Location Sera REYNA [facility] 03-06-2022 15:33-0500 Diastolic blood pressure 94 mm[Hg] Sera [facility] 03-06-2022 15:33-0500 Heart rate 76 /min Sera REY[facility] 03-06-2022 15:33-0500 Respiratory rate 16 /min Sera REY[facility] 03-06-2022 15:33-0500 Systolic blood pressure 128 mm[Hg] Sera REY[facility] 01-24-2021 10:45-0400 Body height 187.96 cm Marta Adairmond Other [facility] Other 01-24-2021 10:45-0400 Body mass index (BMI) [Ratio] 34.66 kg/m2 Marta Adairmond Other [facility] Other 01-24-2021 10:45-0400 Body temperature 97.1 [degF] Marta Adairmond Other [facility] Other 01-24-2021 10:45-0400 Body weight 122.47 kg Marta Adairmond Other [facility] Other 01-24-2021 10:45-0400 Respiratory rate 18 /min Marta Adairmond Other [facility] Other 01-24-2021 10:45-0400 SaO2% (BldA) [Mass fraction] 99 % Marta Adairmond Other [facility] Other Encounters Encounter Date Encounter Type Care Provider Facility Start: 01-21-2024 End: 01-21-2024 Telephone encounter Lena SANDERS Work Phone: [facility] Start: 01-20-2024 End: 01-20-2024 ambulatory OSCAR ELIAS Not Available Start: 01-20-2024 End: 01-20-2024 Patient encounter procedure Oscar Elias MD Work Phone: [facility] Comment on above: Neoplasm of unspecif ied behavior of bone, soft tissue, and skin (Primary Dx) Start: 01-20-2024 End: 01-20-2024 Bamboo flowsheet Oscar Elias MD Work Phone: [facility] Start: 01-20-2024 End: 01-20-2024 Bamboo flowsheet Oscar Elias MD Work Phone: [facility] Start: 01-12-2024 End: 01-12-2024 ambulatory [facility] Work Phone: Start: 01-12-2024 End: 01-12-2024 Patient encounter procedure [facility] Prashant Work Phone: Start: 11-10-2023 End: 11-10-2023 ambulatory DAMIR LEWIS Not Available Start: 09-29-2023 End: 09-29-2023 ambulatory DAMIR LEWIS Not Available Start: 09-08-2023 End: 09-08-2023 ambulatory REZA DILLON Not Available Start: 09-03-2023 End: 09-03-2023 ambulatory Justo Carter Facility:[facility] Start: 08-26-2023 End: 08-26-2023 ambulatory [facility] Work Phone: Start: 08-26-2023 End: 08-26-2023 Patient encounter procedure [facility] G[facility] Work Phone: Start: 08-25-2023 End: 08-25-2023 ambulatory JO LAZCANO Not Available Start: 07-28-2023 Soren AGUIRRE Work Phone: [facility] Start: 05-06-2023 End: 05-06-2023 ambulatory JOSÉ GAYTAN Not Available Start: 04-25-2023 End: 04-25-2023 ambulatory Grady Hitchcock Other [facility] Other Start: 04-25-2023 Patient encounter procedure Grady Hitchcock [facility] Start: 04-18-2023 End: 04-18-2023 ambulatory CARLO Sanchez APLING Not Available Start: 04-09-2023 End: 04-09-2023 ambulatory CARLO Sanchez APLING Not Available Start: 03-27-2023 End: 03-27-2023 ambulatory Grady Hitchcock Facility:[facility] Start: 03-27-2023 End: 03-27-2023 ambulatory MD Reza Dillon Work Phone: [facility] Work Phone: Start: 03-27-2023 End: 03-27-2023 Patient encounter procedure MD Reza Dillon Work Phone: [facility] [place] Work Phone: Start: 03-06-2023 End: 03-06-2023 ambulatory Chuy Ward Facility:[facility] Start: 03-06-2023 End: 03-06-2023 ambulatory MD Reza Dillon Work Phone: [facility] Work Phone: Start: 03-06-2023 End: 03-06-2023 Patient encounter procedure MD Reza Dillon Work Phone: [facility] Work Phone: Start: 02-17-2023 End: 02-17-2023 ambulatory Reza Dillon Facility:[facility] Start: 02-17-2023 End: 02-17-2023 Patient encounter procedure MD Reza Dillon Work Phone: [facility] [place] Work Phone: Start: 01-31-2023 End: 01-31-2023 ambulatory Grady Hitchcock Other [facility] Other Start: 01-31-2023 Telephone encounter Grady Hitchcock [facility] Start: 01-28-2023 End: 01-28-2023 ambulatory Grady Hitchcock Other [facility] Other Start: 01-28-2023 [facility] visit new patient Grady Hitchcock [facility] Start: 09-03-2022 End: 09-04-2022 ambulatory Keyla Miller Facility:[facility] Start: 07-23-2022 End: 07-23-2022 ambulatory MD Jose Escalante Work Phone: [facility] Work Phone: Start: 07-23-2022 End: 07-23-2022 Patient encounter procedure MD Jose Escalante Work Phone: [facility] [address] Work Phone: Start: 07-20-2022 End: 07-20-2022 ambulatory Marta Niño Other [facility] Other Start: 07-20-2022 Office outpatient visit 15 minutes Marta Niño [facility] Start: 07-03-2022 End: 07-03-2022 ambulatory MD Jose Escalante Work Phone: [facility] Work Phone: Start: 07-03-2022 End: 07-03-2022 Patient encounter procedure MD Jose Escalante Work Phone: [facility] [address] Work Phone: Start: 04-07-2022 End: 04-08-[address] IRENE ALVARADO Facility:[facility] Start: 04-02-2022 End: 04-03-[address] SERA REYNA . Facility:[facility] Start: 03-06-2022 End: 03-07-2022 ambulatory Sera REYNA Facility: [facility] Start: 03-06-2022 End: 03-06-2022 Patient encounter procedure Sera REYNA General Surgery [facility] Start: 01-31-2022 Encounter for genera l adult medical examination without abnormal findings DR REZA DILLON [facility] Start: 01-29-2022 ambulatory Sera MARIBELL Facility:[facility] Start: 01-28-2022 End: 01-29-[address] REZA DILLON Facility:[facility] Start: 01-28-2022 End: 01-29-2022 Encounter for general adult medical examination without abnormal findings DR REZA DILLON Facility:[facility] Start: 01-11-2022 End: 01-12-[address] DOCTOR SOTO Facility:[facility] Start: 01-24-2021 Office outpatient visit 15 minutes Marta Niño [facility] [place] Start: 07-21-2020 End: 07-21-2020 Patient encounter procedure Neftaly Stepanmichael -Pre-Surgical Testing Procedures Date Procedure Procedure Detail Performing Clinician Start: 01-20-2024 SKIN / NAIL BIOPSY Michaelfabiano Elias MD Work Phone: Start: 03-27-2023 CT of thorax with contrast MD Reza Dillon Work Phone: Start: 03-06-2023 Esophageal manometry MD Reza Dillon Work Phone: Start: 07-23-2022 Plain X-ray of bilat eral hands MD Jose Escalante Work Phone: Start: 07-23-2022 X-ray of both knees MD Jose Escalante Work Phone: Start: 01-28-[address] DOCTOR SOTO Comment on above: Performed By: #### P [facility] #### [facility] [address] [place] [address] Dr. Indira Francis Arthroscopy of knee Sera REYNA Open reduction of dislocation of wrist Sera MARIBELL Plan of Treatment Date Care Activity Detail Author Start: 08-24-2024 End: 08-24-2024 Patient encounter procedure 08/24/2024 9:40 AM EDT Office Visit [facility] [address] [facility] [place] [address] Jo Lazcano, WES [address] [place], [place] [facility] Start: 03-23-2024 End: 03-23-2024 Patient encounter procedure 03/23/2024 3:15 PM EST Office Visit [facility] [address] [place] [address] A [facility] [place] [id number] Joao Kim MD [address] [place] [address] [facility] Start: 03-18-2024 Adult BMI Screening Adult BMI Screening [facility] Start: 03-18-2024 Tobacco Screening Tobacco Screening [facility] Start: 03-10-2024 End: 03-10-2024 Patient encounter procedure 03/10/2024 8:00 AM EST Office Visit [facility] [address] [place] [id number] Reza Dillon MD [address] [place] [address] [facility] Start: 01-10-2024 Adult BMI Follow Up Plan Adult BMI Follow Up Plan [facility] Start: 12-21-2023 Influenza vaccination [facility] Start: 08-26-2023 Patient referral [facility] Work Phone: Start: 03-06-2023 [facility] Start: 12-20-2022 COVID-19 Vaccine ( season) COVID-19 Vaccine ( season) [facility] Start: 07-03-2022 Hepatitis B core antibody measurement [facility] Start: 07-03-2022 [facility] Start: 09-16-2021 Screening for malignant neoplasm of colon [facility] Start: 04-21-2003 DTaP,Tdap and Td Vaccines (2 - Td or Tdap) DTaP,Tdap and Td Vaccines (2 - Td or Tdap) [facility] Start: 1974 Depression Screening Depression Screening [facility] Start: 1962 Screening for malignant neoplasm of colon [facility] Dermatopathology exam Dermatopat hology exam Pathology and Cytology Timed Neoplasm of unspecified behavior of bone, soft tissue, and skin Release Upon Ordering for 1 Occurrences starting 01/20/2024 [facility] Work Phone: Comment on above: Release Upon Ordering for 1 Occurrences starting 01/20/2024 Hepatitis B virus carrion rface Ab [Presence] in Serum [facility] Hepatitis B virus carrion rface Ag [Presence] in Serum or Plasma by Immunoassay [facility] Hepatitis C virus Ig G Ab [Presence] in Serum or Plasma by Immunoassay [facility] Patient referral [facility] Work Phone: Immunizations Immunization Date Immunization Notes Care Provider [facility] 03-20-2023 Influenza, injectabl e, Madin Latexo Canine Kidney, preservative free, quadrivalent Oscar Elias MD Work Phone: [facility] 03-20-2023 influenza virus vaccine, unspecified formulation Keyonna AGUIRRE Work Phone: [facility] 02-14-2022 influenza, injectabl e, quadrivalent, preservative free Oscar Elias MD Work Phone: [facility] 11-04-2021 zoster vaccine recombinant Oscar Elias MD Work Phone: [facility] 08-20-2021 zoster vaccine recombinant Oscar Elias MD Work Phone: [facility] 03-05-2021 influenza, injectabl e, quadrivalent, preservative free Oscra Elias MD Work Phone: [facility] 04-04-2019 Influenza, injectabl e, Madin Latexo Canine Kidney, preservative free, quadrivalent Oscar Elias MD Work Phone: [facility] 11-25-2018 Toradol per 15 mg Marta Dym ond Other [facility] 11-25-2018 Kenalog -40 mg Marta Renay Other [facility] Other 04-07-2017 Toradol per 15 mg Marta Dym ond Other [facility] Other 04-07-2017 KENALOG - 10 mg Marta Dymon d Other [facility] Other 03-25-2016 pneumococcal conjuga te vaccine, 13 valent Oscar Elias MD Work Phone: [facility] 04-21-1993 tetanus toxoid, reduced diphtheria toxoid, and acellular pertussis vaccine, adsorbed Oscar Elias MD Work Phone: [facility] Payers Date Payer Category Payer Unknown [id number] 1960 Unknown [id number] 2.16.8 [id number] 1962 Unknown [id number] 2.16.84 [id number] 1962 Unknown [id number] 2.16.84 0.1.999162.3.579.2.593 1962 Unknown [id number] 2.16.84 0.1.855568.3.579.2.593 1962 Unknown [id number] 2.16.84 0.1.301665.3.579.2.593 1962 Unknown [id number] 2.16.84 0.1.325600.3.579.2.593 1962 Unknown [id number] 2.16.84 0.1.976679.3.579.2.1259 1962 Unknown [id number] 2.16.84 0.1.564821.3.579.2.1258 1962 Unknown [id number] 2.16.84 0.1.135169.3.579.2.1258 1962 Unknown [id number] 2.16.84 0.1.768701.3.579.2.1258 1962 Unknown [id number] 2.16.84 0.1.275504.3.579.2.1258 1962 Unknown [id number] 2.16.84 0.1.430842.3.579.2.1258 1962 Unknown [id number] 2.16.840 .1.702186.3.579.2.1258 1962 Unknown [id number] 2.16.840 .[id number] 1959 Unknown [id number] Self-pay Self Pay [id number] Unknown [id number] Social History Date Type Detail Facility Tobacco smoking stat [facility] Unknown if ever smoked [facility] Start: 1960 Sex Assigned At Male [facility] Start: 03-18-2023 End: 01-20-2024 Sex Assigned At [facility] Start: 03-06-2022 End: 02-24-2023 Tobacco smoking status Never smoked tobacco (finding) [facility] Tobacco smoking status Never [facility] Start: 02-24-2023 End: 03-18-2023 Tobacco use and exposure Smokeless tobacco non-user [facility] Start: 03-18-2023 End: 01-20-2024 Alcohol intake Current drinker of alcohol (finding) [facility] Start: 03-18-2023 End: 01-20-2024 History of Social function [facility] Start: 11-05-2016 [facility] Start: 1960 Sex Assigned At Not on file P [facility] How often to you hav e a drink containing alcohol? Monthly or less [facility] How many standard drinks containing alcohol do you have on a typical day? 1 or 2 [facility] How often do you hav e 6 or more drinks on 1 occasion? Never [facility] Start: 04-09-2023 Alcohol Comment caffeine 1-2 c ups per day [facility] Goals Date Patient Goal Desired Activity /State Functional Status Date Assessment Result Facility 03-06-2022 Functional Status N/A [facility] Clinical Notes 01-24-2021 to 01-21-2024 Telephone Encounter - MARILYN Garcia - 01/21/2024 11:36 AM EDTTelephone Encounter - MARILYN Garcia - 01/21/2024 11:36 AM EDTEzahraa Elias MD - 01/20/2024 3:45 PM EDT Note Date & Type Note Facility 01-21-2024 Telephone encounter Note Spoke with patient to discuss surgery and he states he is taking a new arthritis medicine and is doing better and shoulder is tolerable at this point and does not want surgery, we will contact us if he desires future treatment [facility] Work Phone: 01-21-2024 Miscellaneous Notes Spoke with patient to discuss surgery and he states he is taking a new arthritis medicine and is doing better and shoulder is tolerable at this point and does not want surgery, we will contact us if he desires future treatment documented in this encounter [facility] 01-20-2024 History of Present illness Narrative Images from the original note were not included. Lesions: Location: neck only Duration: year Quality: itchy Modifying factors: none Associated symptoms: red non-healing, denies any injury to site Treatments: bacitracin Patient denies any history of skin cancer. Established patient All pertinent medical history, medications, and allergies were reviewed. General Exam: alert , oriented to person, place, and time , normal affect, well appearing Unaccompanied A focused exam completed based on patient reported problems, see below: 1. Neoplasm of unspecified behavior of bone, soft tissue, and skin Neck - Anterior [place] ulcerated papule Lesion biopsy Type of biopsy: tangential Informed consent: discussed and consent obtained Informed consent comment: The risks and benefits of the biopsy were discussed. Risks include but are not limited to bleeding, infection, scarring, pain, and nerve damage. An opportunity to ask questions prior to the procedure was permitted and all questions were answered. Patient was prepped and draped in usual sterile fashion: area cleansed with alcohol. Anesthesia: the lesion was anesthetized in a standard fashion Anesthetic: 1% lidocaine w/ epinephrine 1-100,000 buffered w/ 8.4% NaHCO3 Instrument used: DermaBlade Hemostasis achieved with: electrodesiccation Outcome: patient tolerated procedure well Outcome comment: The specimen was placed in a prelabeled formalin container to be sent for pathology Post-procedure details: sterile dressing applied and wound care instructions given Post-procedure details comment: Emphasized need to contact clinic for any signs of infection, uncontrollable bleeding, or complications. Dressing type: bandage Additional details: Photo taken Amount of lidocaine used: 1.7 cc Specimen A - Dermatopathology exam Differential Diagnosis: BCC Check Margins: No Size of lesion: 1.0 x 0.6 cm Shave biopsy today, see procedure note. Patient will be notified of results. Follow up pending biopsy results. Next Visit: pending biopsy results documented in this encounter [facility] 04-25-2023 Evaluation note Encounter Date Diagnosis Assessment Notes Apr, Gastroesophageal reflux disease, unspecified whether esophagitis present (ICD-10 - K21.9) Apr, Esophagogastric junction outflow obstruction (ICD-10 - K22.2) The patient complains of cough with & after eating. We will switch Pantoprazole to Omeprazole 40 mg BID Retrun visit here in 4 months [facility] Other 10-13-2023 Evaluation note* Encounter Date Diagnosis Assessment Notes Treatment Notes Treatment Clinical Notes Jan, Dysphagia (ICD-10 - R13.10) Jan, GERD (gastroesophageal reflux disease) (ICD-10 - K21.9) [facility] 10-10-2023 Evaluation note* Encounter Date Diagnosis Assessment Notes Treatment Notes Treatment Clinical Notes Jan, Gastroesophageal reflux disease, unspecified whether esophagitis present (ICD-10 - K21.9) PATIENT CURRENTLY ON PANTOPRAZOLE 40 BID FOR YEARS. PATIENT TO CONTINUE ON CURRENT DOSING AT THIS TIME. WILL HAVE PATIENT SIGN RELEASE FOR FOR RECORDS FROM [place] FOR HIS RECENT TESTING. [facility] Other 05-16-2023 NotePROCEDURE: XR GI UPPER AIR KUB DUAL CONTRAST, XR CINERADIOGRAPHY COMPARISON: None. HISTORY: Gastroesophageal reflux disease without esophagitis TECHNIQUE: An air contrast upper gastrointestinal series was performed in the usual manner. Standard level fluoroscopic mode of operation utilized. FINDINGS: ESOPHAGUS:Normal. No visible obstruction, dilatation, reflux or hernia STOMACH: Normal. No obstruction, mass, or ulceration. Normal motility. DUODENUM:5.1 x 3.4 cm diverticulum medial descending duodenum OTHER: Negative. IMPRESSION: No gastroesophageal reflux observed 5.1 cm diverticulum medial descending duodenum Electronically authenticated by: KEYLA MILLER Date: 2022-09-03 10:03[facility]05-16-2023 NotePROCEDURE: XR GI UPPER AIR KUB DUAL CONTRAST, XR CINERADIOGRAPHY COMPARISON: None. HISTORY: Gastroesophageal reflux disease without esophagitis TECHNIQUE: An air contrast upper gastrointestinal series was performed in the usual manner. Standard level fluoroscopic mode of operation utilized. FINDINGS: ESOPHAGUS:Normal. No visible obstruction, dilatation, reflux or hernia STOMACH: Normal. No obstruction, mass, or ulceration. Normal motility. DUODENUM:5.1 x 3.4 cm diverticulum medial descending duodenum OTHER: Negative. IMPRESSION: No gastroesophageal reflux observed 5.1 cm diverticulum medial descending duodenum Electronically authenticated by: KEYLA MILLER Date: 2022-09-03 10:03[facility]04-01-2023 Evaluation note* Encounter Date Diagnosis Assessment Notes Treatment Notes Treatment Clinical Notes Jul, Contact with and (suspected) exposure to other viral communicable diseases (ICD-10 - Z20.828) Jul, Bronchitis (ICD-10 - J40) Acute bronchitis material was printed Drink plenty fluids, get plenty of rest. Continue home medications as prescribed. Take the prednisone as prescribed until gone. Use the albuterol inhaler as prescribed as needed for cough or shortness of breath. Use the Tessalon Perles as prescribed as needed for cough. Take Tylenol or Motrin as needed for aches pains or fevers. Follow-up with your family physician if no improvement in 2 to 3 days. [facility] Other 12-13-2022 NotePROCEDURE: XR ESOPHAGUS, XR CINERADIOGRAPHY COMPARISON: None. HISTORY: Gastroesophageal reflux disease without esophagitis TECHNIQUE: An air contrast upper gastrointestinal series was performed in the usual manner. Standard level fluoroscopic mode of operation utilized. FINDINGS: ESOPHAGUS: Mild gastroesophageal reflux. No visible obstruction, dilatation, mucosal irregularity, or hernia STOMACH: No obstruction, mass, or ulceration. Normal motility. DUODENUM:No ulceration or diverticulum. OTHER: Negative. IMPRESSION: 1. Mild gastroesophageal reflux. Otherwise unremarkable. Electronically authenticated by: OSWALD KAYE Date: 2022-04-02 14:51[facility]12-13-2022 NotePROCEDURE: XR ESOPHAGUS, XR CINERADIOGRAPHY COMPARISON: None. HISTORY: Gastroesophageal reflux disease without esophagitis TECHNIQUE: An air contrast upper gastrointestinal series was performed in the usual manner. Standard level fluoroscopic mode of operation utilized. FINDINGS: ESOPHAGUS: Mild gastroesophageal reflux. No visible obstruction, dilatation, mucosal irregularity, or hernia STOMACH: No obstruction, mass, or ulceration. Normal motility. DUODENUM:No ulceration or diverticulum. OTHER: Negative. IMPRESSION: 1. Mild gastroesophageal reflux. Otherwise unremarkable. Electronically authenticated by: OSWALD KAYE Date: 2022-04-02 14:51[facility]11-20-2022 NoteChief Complaint consultation for GERD HPI Staff 61 year old male presents on consultation from Dr. Dillon for GERD. Reports cough that starts 1 hour after eating. He has been experiencing this for many years. Taking Protonix, which minimizes cough but does not alleviate cough. Prescribed Carafate, he is not taking this. Denies abdominal or epigastric pain. No heartburn or indigestion. Esophagram completed 2014 with GERD and hiatal hernia. Verbalized he had normal EGD 2 years ago, report not immediately available. History of Present Illness 61 yo male with h/o psoriasis, VERONICA, JAMILA, chronic GERD with hiatal hernia; referred for postprandialcough; usually occurs 1 hour after eating, sometimes at time of eating; has occurred for several years; normal EGD 07/2020; some improvement with Protonix, not gone; not taking Carafate; no dysphagia or odynophagia; no early satiety; denies breakthrough GERD symptoms; no asa or NSAID use; no abdominal operations; no asa or NSAID use; no abdominal complaints or bowel changes; no tobacco use. Review of Systems PHQ Score Initial Depression Screen Score: 0 Physical Exam Vitals & Measurements HR: 76(Peripheral) RR: 16 BP: 128/94 HT: 71 in HT: 180.3 cm WT: 133 kg WT: 292.6 lb BMI: 40.91 HEENT: normal conjunctiva, sclera clear, no scleral icterus, EOM intact, PERRLA, oral mucosa moist without lesions. Neck: trachea midline, no mass, symmetric, no thyromegaly or nodules, no adenopathy Respiratory: lungs CTA, respirations non labored. Cardiovascular: regular rate and rhythm, no murmur, no pedal edema or varicosities. Gastrointestinal: obese, soft, non distended, no tenderness, no masses, no palpable hernias, diastasis recti no, no hepatosplenomegaly; normal bs Lymphatic: no cervical adenopathy, Musculoskeletal: normal gait, digits and nails without infection, nodes, cyanosis, clubbing. Skin: no rashes, no lesions, no ulcers, no subcutaneous nodules, induration. Psychiatric/Neuro: oriented to time, place, person, judgement normal, affect appropriate for age, insight intact, no focal deficits. Tests: , x-rays reviewed, review of old records completed, Discussed surgical options, risks, and possible complications with patient. Assessment/Plan 1. Cough in adult patient (R05.9: Cough, unspecified) increase PPI to bid; check ba swallow to evaluate for aspiration/dysmotility; will call patient with results. 2. Chronic GERD (K21.9: Gastro-esophageal reflux disease without esophagitis) see # 1 3. BMI 40.0-44.9, adult (Z68.41: Body mass index [BMI] 40.0-44.9, adult) recommend diet and exercise Follow-up No qualifying data available Problem List/Past Medical History Ongoing BMI 40.0-44.9, adult BPH (benign prostatic hyperplasia) Chronic eczema Chronic GERD Cough in adult patient VERONICA (generalized anxiety disorder) GERD (gastroesophageal reflux disease) Hiatal hernia Morbid obesity Obstructive sleep apnea syndrome Psoriasis Historical No qualifying data Procedure/Surgical History Arthroscopy of knee, Open reduction of dislocation of wrist. Medications betamethasone-clotrimazole Top 0.05%-1% Crm 15 gram, 1 monster, Topical, BID CeleXA 20 mg Tab, 20 mg= 1 tab(s), Oral, Daily nabumetone 500 mg Tab, 500 mg= 1 tab(s), Oral, BID, PRN Pantoprazole [address] Tab, 40 mg= 1 tab(s), Oral, BID sucralfate 1 g Tab, 1 gm= 1 tab(s), Oral, QIDACHS tamsulosin 0.4 mg Cap, 0.4 mg= 1 cap(s), Oral, Daily Allergies Tylenol (Rash) Social History Alcohol - Denies Alcohol Use, 03/06/2022 Substance Abuse - Denies Substance Abuse, 03/06/2022 Tobacco Never (less than 100 in lifetime) Tobacco Use:. Never Smokeless Tobacco Use:., 03/06/2022 Family History Asthma: Brother. Hypertension: Mother, Sister and Brother. Primary malignant neoplasm of lung: [facility] Comment: Electronically Signed By: MARIBELL SEGURA, Sera Armenta\Date and Time Signed: 03/10/22 17:38 [id number] Evaluation note* Encounter Date Diagnosis Assessment Notes Treatment Notes Treatment Clinical Notes Jan, Contact with and (suspected) exposure to other viral communicable diseases (ICD-10 - Z20.828) Jan, Viral infection (ICD-10 - B34.9) Jan, Nausea and vomiting, intractability of vomiting not specified, unspecified vomiting type (ICD-10 - R11.2) Drink plenty fluids, get plenty of rest. Take the Zofran as prescribed as needed for nausea. Follow-up with your family physician if no improvement in 2 to 3 days. Jan, Other Additional time spent conducting pre-visit phone call, screening for symptoms, instructions on social distancing, application and removal of PPE, and cleaning of examination room, equipment and supplies was preformed. Patient education given for testing methodology and results. Patient care instructions given in writting by [facility] document. [facility] Other Evaluation + Plan note No data available for this section [facility] Evaluation noteNo assessment information available [facility] Work Phone: Evaluation note* Diagnosis Onset Date Resolution Status Coughing acute Heartburn acute [facility] Work Phone: Evaluzqeeh note* Diagnosis Neoplasm of unspecified behavior of bone, soft tissue, and skin- Primary documented [facility] this [facility] - Reported* Type Description Date Medical History Benign prostatic hyp erplasia, presence of lower urinary tract symptoms unspecified, unspecified morphology Medical History Gastroesophageal ref lux disease, esophagitis presence not specified Medical History Anxiety Surgical History fracture repair Surgical History wisdom teeth Surgical History biopsy of prostate [facility] [employer] Other Hism[facility] general Narrative - Reported* Type Description Date Medical History Benign prostatic hyp erplasia, presence of lower urinary tract symptoms unspecified, unspecified morphology Medical History Gastroesophageal ref lux disease, esophagitis presence not specified Medical History Anxiety Surgical History fracture repair Surgical History wisdom teeth Surgical History biopsy of prostate Hospitalization History see above [facility] Other Hospital Discharge instructions No data available for this section [facility] Discharge instructionsAmbulatory Orders* Referral to ENT Time Frame: 08/26/23, Location: None Selected [facility] Work Phone: InstructionsNot on filedocumented in this encounter [facility] No data available for this section [facility] Advance Directives Advance Directive Response Recorded Date/ Time Advance Directives No March 2:41pm Advance Directive Response Recorded Date/ Time Advance Directives No March 1:41pm Chief Complaint and Reason for Visit Chief Complaint Hiatal Hernia/GERD Chief Complaint M25.50 Z11.59 Z79.89 9 Chief Complaint r13.10 k21.9 Dysphagia Chief Complaint r13.10 k21.9 Dysphagia k22.2 r13.10 Chief Complaint 4 MONTH FOLLOW UP/CO UGH Reason for Visit Coughing Heartburn Chief Complaint poss bronchitis Assessments No Assessments Information Available Summary Purpose Family History Relationship Condition Age at Onset Recorded Date/T alisa brother Malignant neoplasm of esophagus Unknown Malignant neoplasm of thyroid gland Unkno wn Malignant neoplasm of liver Unknown sister Lupus Unknown sister Leukemia Unknown father Malignant neoplasm of lung Unknown Relationship Condition Age at Onset Recorded Date/T alisa brother Malignant neoplasm of esophagus Unknown Malignant neoplasm of thyroid gland Unkno wn Malignant neoplasm of liver Unknown sister Lupus Unknown sister Leukemia Unknown father Malignant neoplasm of lung Unknown father Unknown Malignant neoplasm Unknown Not Specified Unknown Hypertension Unknown Heart disease Unknown sister Unknown Relationship Condition Age at Onset Recorded Date/T alisa brother Malignant neoplasm of esophagus Unknown Malignant neoplasm of thyroid gland Unkno wn Malignant neoplasm of liver Unknown sister Lupus Unknown sister Leukemia Unknown father Malignant neoplasm of lung Unknown father Unknown Malignant neoplasm Unknown mother Unknown Hypertension Unknown Heart disease Unknown sister Unknown Additional Source Comments (unrecognized sect ion and content) No Status Records FoundNo Status Records FoundNo Status Records FoundNo Status Records FoundNo Status Records FoundNo Status Records Found INFORMATION SOURCE (unrecogn ized section and content) DATE CREATED AUTHOR 06/13/2021 [facility] dical Specialist DATE CREATED AUTHOR AUTHOR'S ORGANIZ ATION 04/20/2022 Cazares Mani [facility] DATE CREATED AUTHOR AUTHOR'S ORGANIZ ATION 09/04/2022 [facility] DATE CREATED AUTHOR AUTHOR'S ORGANIZ ATION 10/20/2022 [facility] DATE CREATED AUTHOR AUTHOR'S ORGANIZ ATION 09/05/2023 [facility] DATE CREATED AUTHOR AUTHOR'S ORGANIZ ATION 01/22/2024 [facility] dical Specialists EPIC REASON FOR VISIT (unrecogniz ed section and content) Reason Comments Med Refill Reason Comments Suspicious Skin Lesion Patient Care team informatio n (unrecognized section and content) Team Status: Active Member Role Status Dates Jose Escalante MD Primary Care Provider Active Team Status: Inactive Member Role Status Dates Jose Escalante MD Primary Care Provider Active Justo Carter MD Attending Provider Active Team Status: Active Member Role Status Dates Reza Dillon MD Primary Care Provider Active Team Status: Inactive Member Role Status Dates Grady Hitchcock MD Attending Provider Active Reza Dillon MD Primary Care Provider Active Team Status: Inactive Member Role Status Dates Reza Dillon MD Primary Care Provider Active Chuy Ward MD Attending Provider Active Team Status: Inactive Member Role Status Dates Reza Dillon MD Primary Care Provider Active Grady Hitchcock MD Attending Provider Active Library Page Relationship Specialty Start Date End Date Reza Dillon MD [address] [place], [place] [id number] PCP - General Family Medicine 09/10/21 Team Status: Inactive Member Role Status Dates Reza Dillon MD Primary Care Provider Active S tart: August 26, 2023 End: August 26, 2023 Grady Hitchcock MD Attending Provider Active S tart: August 26, 2023 End: August 26, 2023 Team Status: Inactive Member Role Status Dates Reza Dillon MD Primary Care Provider Active S tart: January 12, 2024 End: January 12, 2024 Della Toribio APRN Attending Provider Active S tart: January 12, 2024 End: January 12, 2024 Library Page Relationship Specialty Start Date End Date Reza Dillon MD [address] [place] [phone] PCP - General Family Medicine 08/25/23 Reza Dillon MD [address] [place] [id number] PCP - [facility] 04/21/17 04/20/99 Library Page Relationship Specialty Start Date End Date Reza Dillon MD [address] [place] [phone] PCP - General Family [facility] 08/25/23 Reza Dillon MD [address] [place] [phone] PCP - [facility] 04/21/17 04/20/99 Library Page Relationship Specialty Start Date End Date Reza Dillon MD [address] [place] [phone] PCP - [facility] 08/25/23 Reza Dillon MD [address] [place] [phone] PCP - [facility] 04/21/17 04/20/99 Goals (unrecognized section and content) Goals may be documented in a n alternate section FOR RECORDS PERTAINING TO PATIENTS WHO ARE OR HAVE BEEN ENROLLED IN A CHEMICAL DEPENDENCY/SUBSTANCEABUSE PROGRAM, SOME INFORMATION MAY BE OMITTED. This clinical summary was aggregated from multiple sources. Caution should be exercised in using it in the provision of clinical care. This summary normalizes information from multiple sources, and as a consequence, information in this document may materially change the coding, format and clinical context of patient data. In addition, data may be omitted in some cases. CLINICAL DECISIONS SHOULD BE BASED ON THE PRIMARY CLINICAL RECORDS. [employer] [facility]. provides no warranty or guarantee of the accuracy or completeness of information in this document.
--- NOTE | 2024-02-22 23:50 | XR_ITS ---
The [address] [address] Patient Name: JULISSA JOHNSTON MRN: [id number] date: 1960 Sex: M Assigned Patient Location: ER Current Patient Location: ER Accession/Order Number: [id number] Exam Date: 02/22/2024 23:52 Report Date: 02/23/2024 00:42 At the request of: PRADEEP MARKER Procedure: XR chest 2V EXAM: XR chest 2V HISTORY: Fever. Productive cough. Dyspnea for 2 days. COMPARISON: CT chest, 02/24/2015. TECHNIQUE: Frontal and lateral chest x-rays. FINDINGS: The heart, mediastinum and pulmonary vascularity are within normal limits. The lungs and pleural spaces appear clear. The bony thorax appears intact. XR/XR chest 2V IMPRESSION: Nonacute chest. Electronically authenticated by: JANESSA NEWSOME Date: 02/23/2024 00:42
--- NOTE | 2024-02-23 00:04 | ED_ITS ---
HPI HPI - General Adult General Chief complaint: Shortness of Breath/Dyspnea Stated complaint: Upper Respiratory Time Seen by Provider: 02/22/24 23:36 Source: patient Mode of arrival: walk-in Limitations: no limitations History of Present Illness HPI narrative: This 63-year-old male with a history of rheumatoid arthritis who is on Humira presents for evaluation of chills, sweats, headache and cough with shortness of breath and pain between his shoulder blades since Friday. He has not had any nausea or vomiting. He denies any sick contacts. He does not have any neck pain or stiffness. He does not have any skin rash. He denies a history of tobacco use. He denies any low back pain or urinary symptoms. Related Data Home Medications ?Medication ?Instructions ?Recorded ?Confirmed adalimumab 40 mg/0.4 mL mg subcut 02/22/24 subcutaneous pen kit (Humira(CF) Pen) citalopram 20 mg tablet mg 02/22/24 omeprazole 40 mg capsule,delayed mg 02/22/24 release tamsulosin 0.4 mg capsule mg PO 02/22/24 Allergies Allergy/AdvReac Type Severity Reaction Status Date / Time acetaminophen (From [facility] Allergy Intermediate Rash Verified 02/22/24 23:39 (acetaminophen)) Opioid HPI Opioid Management Most Recent Opioid Data: Last JUN Pain Assessment 02/23/24 00:18 Review of Systems ROS Status of ROS 10 or more systems reviewed and unremark able except as noted in history and below PFSH PFSH Social History Little interest or pleasure in doing things: not at all Feeling down, depressed, or hopeless: not at all Exam Narrative Exam Narrative: Vital signs and Nursing Notes reviewed: General: Awake, alert, oriented, no acute distress, lying comfortably on the stretcher HEENT: Normocephalic atraumatic, mucous membranes are moist and pink, eyes are clear, normal conjunctiva, vision is grossly intact, posterior pharynx is normal in appearance. Neck: Supple, no meningeal signs, no anterior or posterior cervical lymphadenopathy Chest: Scattered expiratory wheezes greatest in the left upper lobe, lungs are otherwise coarse without rhonchi or rales CVS: Regular rate and rhythm S1-S2, no murmurs rubs or gallops, pulses are brisk and equal bilaterally ABD: Soft, nondistended, nontender, no rebound guarding or rigidity, bowel sounds are normal, no pulsatile masses appreciated Extremities: Moving all extremities, no lower extremity tenderness or swelling noted, negative Homans' sign, pulses are brisk and equal bilaterally Skin: Normal in appearance without rash,pallor, petechiae or purpura Neuro: No focal deficits Constitutional Vital Signs, click to edit/add: Last Vital Signs Temp 98.7 F 02/22/24 23:31 Pulse 81 02/23/24 00:26 Resp 18 02/23/24 00:26 BP 151/79 H 02/22/24 23:31 Pulse Ox 96 02/23/24 00:26 O2 Del Method Room Air 02/23/24 00:26 Course Vital Signs Vital signs: Vital Signs Temperature 98.7 F 02/22/24 23:31 Pulse Rate 94 H 02/22/24 23:31 Respiratory Rate 20 02/22/24 23:31 Blood Pressure 151/79 H 02/22/24 23:31 Pulse Oximetry 96 02/22/24 23:31 Oxygen Delivery Method Room Air 02/22/24 23:31 Temperature 98.7 F 02/22/24 23:31 Pulse Rate 81 02/23/24 00:26 Respiratory Rate 18 02/23/24 00:26 Blood Pressure 151/79 H 02/22/24 23:31 Pulse Oximetry 96 02/23/24 00:26 Oxygen Delivery Method Room Air 02/23/24 00:26 Medical Decision Making MDM Narrative Medical decision making narrative: This 63-year-old male, non-smoker who is on Humira for history of rheumatoid arthritis presents for evaluation of pain between his shoulder blades and a cough with shortness of breath. He has had intermittent fevers and chills and a headache. He denies any nausea vomiting or diarrhea. He does not have any abdominal pain. He has not had any recent sick contacts. He was noted to have some mild wheezing upon arrival. He was febrile with a normal pulse ox. He was given a DuoNeb treatment and ibuprofen as he is allergic to Tylenol. Routine labs including COVID-19, influenza, CBC with differential, comprehensive metabolic profile and troponin were ordered. He has a normal white count and hemoglobin. Electrolytes are normal. Troponin is normal. He is negative for COVID-19 but positive for influenza B. The results of these findings were discussed with him. He is feeling better after the Motrin and DuoNeb treatment. He states he has used inhalers in the past with improvement. He will be discharged home with an albuterol MDI and prescription for guaifenesin with cod eine. I discussed Tamiflu with him and he will be given a prescription for Tamiflu and guaifenesin with codeine as well as the albuterol MDI. I encouraged him to drink plenty of fluids, rest, use a mask if he has to go into public and return to the emergency department for worsening shortness of breath chest pain dizziness or any concerns. His chest x-ray was reviewed by myself and does not show any acute infiltrate, normal mediastinum, normal cardiac borders Medical Records Medical records narrative: [place] [address] XRay Report Signed Patient: JULISSA JOHNSTON MR#: [id number] : 1960 Acct:[id number] Age/Sex: 63 / M ADM Date: 02/22/24 Loc: ER Attending Dr: Ordering Physician: Brooklyn Stringer Date of Service: 02/22/24 Procedure(s): XR chest 2V Accession Number(s): [id number] cc: Brooklyn Stringer; Reza Ivan M.D.~ The [address] [address] Patient Name: JULISSA JOHNSTON MRN: [id number] date: 1960 Sex: M Assigned Patient Location: ER Current Patient Location: ER Accession/Order Number: [id number] Exam Date: 02/22/2024 23:52 Report Date: 02/23/2024 00:42 At the request of: BROOKLYN STRINGER Procedure: XR chest 2V EXAM: XR chest 2V HISTORY: Fever. Productive cough. Dyspnea for 2 days. COMPARISON: CT chest, 02/24/2015. TECHNIQUE: Frontal and lateral chest x-rays. FINDINGS: The heart, mediastinum and pulmonary vascularity are within normal limits. The lungs and pleural spaces appear clear. The bony thorax appears intact. XR/XR chest 2V IMPRESSION: Nonacute chest. Electronically authenticated by: JANESSA NEWSOME Date: 02/23/2024 00:42 Lab Data Lab results reviewed: Yes I reviewed the patient's lab results Labs: Lab Results 02/23/24 02/23/24 Range/Units 00:10 00:15 WBC 8.4 (4.0-11.0) 10^3/uL RBC 4.27 L (4.70-6.10) 10^6/uL Hgb 13.7 L (14.0-18.0) g/dL Hct 39.8 L (42.0-54.0) % MCV 93.2 (80.0-94.0) fL MCH 32.1 (25.9-34.0) pg MCHC 34.4 (29.9-35.2) g/dL RDW 12.2 (11.0-15.0) % Plt Count 158 (150-450) 10^3/uL MPV 9.7 (9.5-13.5) fL Neut % (Auto) 54.7 (43.0-75.0) % Lymph % (Auto) 28.8 (20.5-60.0) % Phelps % (Auto) 14.4 H (1.7-12.0) % Eos % (Auto) 1.1 (0.9-7.0) % Baso % (Auto) 0.8 (0.2-2.0) % Neut # (Auto) 4.6 (1.4-6.5) 10^3/uL Lymph # (Auto) 2.4 (1.2-3.8) 10^3/uL Phelps # (Auto) 1.2 H (0.3-0.8) 10^3/uL Eos # (Auto) 0.1 (0.0-0.7) 10^3/uL Baso # (Auto) 0.1 (0.0-0.1) 10^3/uL Abs Immat Gran (auto) 0.02 (0.00-0.03) 10^3/uL Imm/Tot Granulo (auto) 0.2 (0.0-0.5) % Sodium 140 (136-145) mmol/L Potassium 4.0 (3.5-5.1) mmol/L Chloride 105 (98-107) mmol/L Carbon Dioxide 26.0 (21.0-32.0) mmol/L Anion Gap 13.0 BUN 20.0 H (7.0-18.0) mg/dL Creatinine 1.29 (0.70-1.30) mg/dL Est GFR ( Amer) >60 (>=60 mL/min/1.73m^2) Est GFR (Non-Af Amer) 57 L (>=60 mL/min/1.73m^2) BUN/Creatinine Ratio 15.5 Glucose 112 H (74-106) mg/dL Lactate 0.9 (0.4-2.0) mmol/L Calcium 8.8 (8.5-10.1) mg/dL Total Bilirubin 0.9 (0.2-1.0) mg/dL AST 32 (15-37) U/L ALT 31 (16-63) U/L Alkaline Phosphatase 69 (46-116) U/L Troponin I High Sens 8.6 (4.0-76.1) pg/mL Total Protein 7.4 (6.4-8.2) g/dL Albumin 3.2 L (3.4-5.0) g/dL Globulin 4.2 g/dL Albumin/Globulin Ratio 0.8 Influenza Type A Ag Negative Influenza Type B Ag Positive A SARS-CoV-2 Ag (CV2AG) Negative (NEGATIVE) Discharge Plan Discharge Chief Complaint: Shortness of Breath/Dyspnea Clinical Impression: Viral upper respiratory tract infection with cough, Influenza B Patient Disposition: Home, Self-Care Prescriptions / Home Meds: No Action omeprazole 40 mg capsule,delayed release(DR/EC) citalopram 20 mg tablet tamsulosin 0.4 mg capsule PO Humira(CF) Pen 40 mg/0.4 mL pen injector kit SUBCUT Print Language: Citizen Of [place] Instructions: Influenza (ED), Upper Respiratory Infection (ED) Referrals: Reza Ivan MD [Primary Care Provider] - 1 week
[2024-02-23] MEDS: IBUPROFEN 600 MG TABLET PO (00:18)
[2024-02-23 00:20] LABS: Basophils Absolute Auto 0.1 10^3/uL (0.0-0.1); Basophils Percent Auto 0.8 % (0.2-2.0); Eosinophils Absolute Auto 0.1 10^3/uL (0.0-0.7); Eosinophils Percent Auto 1.1 % (0.9-7.0); Hematocrit 39.8 % (42.0-54.0); Hemoglobin 13.7 g/dL (14.0-18.0); Immature Granulocytes Abs Auto 0.02 10^3/uL (0.00-0.03); Immature Granulocytes Pct Auto 0.2 % (0.0-0.5); Lymphocytes Absolute Auto 2.4 10^3/uL (1.2-3.8); Lymphocytes Percent Auto 28.8 % (20.5-60.0); Mean Corpuscular HGB Conc 34.4 g/dL (29.9-35.2); Mean Corpuscular Hemoglobin 32.1 pg (25.9-34.0); Mean Corpuscular Volume 93.2 fL (80.0-94.0); Mean Platelet Volume 9.7 fL (9.5-13.5); Monocytes Absolute Auto 1.2 10^3/uL (0.3-0.8); Monocytes Percent Auto 14.4 % (1.7-12.0); Neutrophils Absolute Auto 4.6 10^3/uL (1.4-6.5); Neutrophils Percent Auto 54.7 % (43.0-75.0); Platelet Count 158 10^3/uL (150-450); Red Blood Count 4.27 10^6/uL (4.70-6.10); Red Cell Distribution Width 12.2 % (11.0-15.0); White Blood Count 8.4 10^3/uL (4.0-11.0)
[2024-02-23] MEDS: IPRATROPIUM/ALBUTEROL SULFATE 3 ML AMPUL.NEB IH (00:24)
[2024-02-23 00:26] VITALS: PULSE 81; O2SAT 96
[2024-02-23 00:33] LABS: Influenza Virus A Antigen Negative; Influenza Virus B Antigen Positive; Internal Control Within Normal Limits; SARS-CoV-2 Ag NEGATIVE (NEGATIVE)
[2024-02-23 00:38] LABS: Lactate/Lactic Acid 0.9 mmol/L (0.4-2.0)
[2024-02-23 00:39] LABS: Alanine Aminotransferase 31 U/L (16-63); Albumin Globulin Ratio 0.8; Albumin Level 3.2 g/dL (3.4-5.0); Alkaline Phosphatase 69 U/L (46-116); Aspartate Amino Transferase 32 U/L (15-37); BUN Creatinine Ratio 15.5; Bilirubin Total 0.9 mg/dL (0.2-1.0); Calcium 8.8 mg/dL (8.5-10.1); Chloride 105 mmol/L (98-107); Estimated GFR (African America >60 (>=60 mL/min/1.73m^2); Estimated GFR (Non-African Ame 57 (>=60 mL/min/1.73m^2); Globulin 4.2 g/dL; Glucose 112 mg/dL (74-106); Sodium 140 mmol/L (136-145); Total Protein 7.4 g/dL (6.4-8.2); Troponin I High Sensitivity 8.6 pg/mL (4.0-76.1)
[2024-02-23] MEDS: ONDANSETRON 4 MG RAPDIS TABLET SL (01:28)
[2024-02-23] MEDS: CODEINE 10 MG/GUAIFENESIN 100 MG 5 ML CUP PO (01:28)
[2024-02-23 01:33] VITALS: BP 129/8; PULSE 96; O2SAT 96
== END 2024-02-23 01:33 | disposition home or self-care (01) ==
PROVIDERS: Emergency Provider Emergency Medicine; PCP Family Medicine
DX: J10.1 Influenza due to other identified influenza virus with other respiratory manifestations (principal); R05.9 Cough, unspecified; M06.9 Rheumatoid arthritis, unspecified; Z79.899 Other long term (current) drug therapy
CPT/HCPCS: 36415; 71046; 80053; 83605; 84484; 85025; 87804; 87811; 94640; 99284; Q0162

== ENCOUNTER 2024-03-15 08:13 | Outpatient (OUT) | payer OTHER, SELFPAY ==
--- OUTSIDE RECORDS SUMMARY | 2024-03-15 08:38 | XMS_ITS | CCD ---
Author Organization [facility] Inform ion Partnership [facility] Care Team Providers [employer] Press Operator Name Role Phone Neftaly Solis Attending Provider [phone] Jose Escalante Primary Care Provider Marta Niño Unavailable REZA DILLON Primary Care Physician [phone] Sera REYNA Attending Unavailable NADERER PROVIDERREZA Referring Unavailab MD Jose Schulte Primary Care Provider MD Justo Carter Attending Provider [phone] [facility] [place] [place] [facility] Primary Care Unavailable Keyla Miller [...] Unavailable Chuy Ward Admitting UnavailChuy Ramirez Attending Unavailalejandro e Reza Dillon Primary Care Unavailable Grady Hitchcock Admitting Unavailable Grady Hitchcock Attending Unavailable Reza Dillon Primary Care Unavailable Justo Carter Admitting Unavailable Justo Carter Attending Unavailable Reza Dillon Primary Care Unavailable Reza Dillon MD Primary Care Provider Reza Dillon MD Unavailable CARLO GONZALES Referring Unavailable JOSÉ GAYTAN Attending Unavailable JO LAZCANO Attending Unavailable REZA DILLON Attending Unavailable DAMIR LEWIS Attending Unavailable MURDAMIR CARLOS Attending Unavailable CARLO GONZALES Attending Unavailable PETOSCAR KAMINSKI Attending Unavailable REZA DILLON Attending Unavailable Unavailable Unavailable Unavailable Allergies Allergy Classification Reported Allergen(s) Allergy Type Date of Onset Reaction(s) Facility (13 sources) Acetaminophen; Translations: [acetaminophen] Drug Allergy 03-12-20 16 hives, Eruption of skin (disorder), Rash [facility] [place] (2 sources) Acetaminophen; Translations: [Tylenol] Drug Allergy 04-07-20 22 [facility] (13 sources) Chocolate Allergy to substance 07-26-19 21 Rash [facility] (7 sources) Soy protein Allergy to substance 03-12-20 16 Unknown Reaction [facility] (13 sources) Wheat preparation Drug Allergy 03-12-20 16 Unknown Reaction [facility] (6 sources) beet sugar Allergy to substance 07-26-19 21 Unknown Reaction [facility] (3 sources) Wheat germ oil Drug Allergy Unknown [employer] Other (5 sources) Soybean-Soy Isoflavones Drug allergy 08-26-19 24 Unknown, Unknown Reaction [facility] (1 source) Wheat Propensity to adverse reactions to drug 03-12-20 16 [facility] (1 source) Other Propensity to adverse reactions 03-12-20 16 [facility] (7 sources) Acetaminophen Drug Allergy 01-06-20 14 Rash [facility] (7 sources) Germanium Drug Allergy 07-26-19 21 Unknown [facility] (7 sources) Isoflavones (Soy) Allergy to substance 02-25-20 Rash [facility] (3 sources) Chocolate Flavoring Agent (Non-Screening) Allergy to substance 02-25-20 Rash [facility] Medications Current Medications Medication Drug Class(es) Dates Sig (Normalized) Sig (Original) 0.4 ml adalimumab 100 mg/ml auto-injector (9 sources) Tumor Necrosis Factor Nano Start: 08-26-2023 Adalimumab (Humira(Cf) Pen) 40 mg/0.4 mL pen injector kit Active MG SUBCUT August 26, 2023 12:00am Start: 07-31-2023 Humira, 2 Pen, 40 MG/0.4ML Pen-injector Kit pen-injector Inject 40 mg under the skin every 14 (fourteen) days 07/31/2023 Active [id number] actuat albuterol 0.09 mg/actuat metered dose [...] Active amitriptyline hydrochloride 10 mg oral tablet (7 sources) Tricyclic Antidepressant Start: 09-29-2023 End: 03-10-2024 take 1 tablet by mouth at bedtime amitriptyline (Elavil) 10 MG tablet Indications: Chronic cough Take 1 tablet (10 mg) by mouth at bedtime 30 tablet 2 09/29/2023 03/10/2024 Discontinued benzonatate 200 mg oral capsule (1 source) [...] Status: Ordered citalopram 20 mg oral tablet (20 sources) Serotonin Reuptake Inhibitor Start: 07-25-2020 citalopram (CeleXA) 20 MG tablet Indications: VERONICA (generalized anxiety disorder) (CMS/[facility]) TAKE 1 TABLET DAILY 90 tablet 3 12/17/2023 Active Citalopram [place] bromide Active cyclobenzaprine hydrochloride 10 mg oral tablet (8 sources) Muscle Relaxant Start: 11-19-2023 take 1 [...] 10/17/2020 Active leflunomide 20 mg oral tablet (13 sources) Antirheumatic Agent Start: 01-21-2023 End: 03-10-2024 take 1 tablet by mouth once daily leflunomide (Arava) 20 MG tablet take 1 tablet by mouth once daily ( MUST GET STANDING LABS ) 01/21/2023 03/10/2024 Discontinued nabumetone 500 mg oral tablet (1 source) Nonsteroidal Anti-inflammatory Drug Start: 02-08-2022 take 1 tablet by mouth twice daily as needed for pain nabumetone 500 mg Tab 500 mg = 1 tab(s), Oral, BID, PRN Pain, Refills(s) 0 Start Date: 02/08/22 Status: Ordered omeprazole 40 mg delayed release oral capsule (17 sources) Proton Pump Inhibitor Start: 10-29-2023 take [...] Ordered pramipexole dihydrochloride 0.25 mg oral tablet (10 sources) Nonergot Dopamine Agonist Start: 01-12-2023 take [...] Jul, Active sucralfate 1000 mg oral tablet (3 sources) Aluminum Complex Start: 03-10-2024 take 1 tablet by mouth at bedtime sucralfate (Carafate) 1 g tablet Indications: Laryngopharyngeal reflux Take 1 tablet (1 g) by mouth in the morning and 1 tablet (1 g) at noon and 1 tablet (1 g) in the evening and 1 tablet (1 g) before bedtime. Take before meals. 120 tablet 3 03/10/2024 Active Start: 03-10-2024 take 1 tablet by sanam th at bedtime sucralfate (Carafate) 1 g tablet Indications: Laryngopharyngeal reflux Take 1 tablet (1 g) by mouth in the morning and 1 tablet (1 g) at noon and 1 tablet (1 g) in the evening and 1 tablet (1 g) before bedtime. Take before meals. 120 tablet 3 03/10/2024 Active Start: 02-08-2022 sucralfate 1 g Tab 1 gm = 1 tab(s), Oral, QIDACHS, Refills(s) 0 Start Date: 02/08/22 Status: Ordered tamsulosin hydrochloride 0.4 mg oral capsule (20 sources) alpha-Adrenergic Nano Start: 07-28-2023 tamsu losin (FLOMAX) 0.4 mg capsule TAKE 2 CAPSULES [...] Date Documented Da te Episodic/Chronic Anxiety disorders (8 sources) Generalized anxiety disorder; Translations: [Generalized anxiety [...] [HEADACHE UNSPECIFIED] Onset: 2 Hyperplasia of prostate (8 sources) Benign prostatic hyperplasia; Translations: [Benign prostatic hypertrophy without outflow obstruction] Onset: 4 02-08-2022 Chronic Immunizations and screening for infectious disease (6 sources) Contact with and (suspected) exposure to other viral communicable diseases; Translations: [Contact with and (suspected) exposure to other viral communicable diseases Z20.828] Onset: 1 Resolved: 1 Episodic Miscellaneous mental health disorders (7 sources) Primary insomnia; Translations: [Primary insomnia] Onset: 4 08-22-2023 Chronic Neoplasms of unspecified nature or uncertain behavior (2 sources) Neoplastic disease; Translations: [Neoplasm of unspecified behavior of bone, soft tissue, and skin] 01-20-2024 Episodic Osteoarthritis (20 sources) Arthritis; Translations: [Unspecified osteoarthritis, unspecified site] Onset: 4 05-02-2023 Chronic Other acquired deformities (7 sources) Contracture of joint of right ankle; Translations: [Contracture, right ankle] Onset: 4 05-02-2023 Chronic Other gastrointestinal disorders (1 source) Heartburn; Translations: [Heartburn] 08-26-2023 Episodic Other hereditary and degenerative nervous system conditions (7 sources) Restless legs; Translations: [Restless legs syndrome] Onset: 4 09-08-2023 Chronic Other inflammatory condition of skin (8 sources) Psoriasis; Translations: [Psoriasis, unspecified] Onset: 4 02-08-2022 Chronic Other inflammatory condition of skin (4 sources) Psoriatic arthritis; Translations: [Arthropathic psoriasis, unspecified] Onset: 4 03-10-2024 Chronic Other male genital disorders (8 sources) Male erectile dysfunction, unspecified; Translations: [Impotence of organic origin] Onset: 6 07-08-2022 Chronic Other nutritional; endocrine; and metabolic disorders (8 sources) Body mass index 40+ - severely obese; Translations: [Body mass index (BMI) 40.0-44.9, adult] Onset: 4 03-06-2022 Chronic Other nutritional; endocrine; and metabolic disorders (6 sources) Morbid obesity; Translations: [Morbid (severe) obesity due to excess calories] Onset: 4 02-08-2022 Chronic Other nutritional; endocrine; and metabolic disorders (4 sources) Severe obesity; Translations: [Class 2 severe obesity due to excess calories with serious comorbidity and body mass index (BMI) of 36.0 to 36.9 in adult ([facility])] Onset: 4 03-10-2024 Chronic Other screening for suspected conditions (not mental disorders or infectious disease) (11 sources) Encounter for screening for malignant neoplasm of prostate; Translations: [Raised prostate specific antigen] Onset: 6 03-18-2023 Episodic Other upper respiratory disease (7 sources) Allergic rhinitis; Translations: [Allergic rhinitis, unspecified] Onset: 4 05-02-2023 Chronic Residual codes; unclassified (8 sources) Obstructive sleep apnea syndrome; Translations: [Obstructive sleep apnea (adult) (pediatric)] Onset: 4 02-08-2022 Chronic Residual codes; unclassified (7 sources) Hypersomnia; Translations: [Hypersomnia, unspecified] Onset: 4 08-22-2023 Chronic Rheumatoid arthritis and related disease (7 sources) Rheumatoid arthritis of multiple joints; Translations: [Rheumatoid arthritis without rheumatoid factor, multiple sites] Onset: 4 Resolved: 4 09-08-2023 Chronic Unclassified (1 source) COUGH, UNSPECIFIED; Translations: [COUGH, UNSPECIFIED] Onset: 2 Past or Other Problems Problem Classification Problem Date Documented Da te Episodic/Chronic Abdominal hernia (8 sources) Hiatal hernia; Translations: [Diaphragmatic hernia without obstruction or gangrene] Onset: 05-02-2023 02-08-2022 Episodic Allergic reactions (8 sources) Chronic eczema; Translations: [Dermatitis, unspecified] Onset: 05-02-2023 02-08-2022 Episodic Coma; stupor; and brain damage (7 sources) Daytime somnolence; Translations: [Somnolence] Onset: 05-02-2023 05-02-2023 Episodic Conditions associated with dizziness or vertigo (4 sources) Dizziness and giddiness; Translations: [DIZZINESS AND GIDDINESS] Onset: 04-07-2022 Episodic E Codes: Adverse effects of medical drugs (1 source) Adverse effect of other viral vaccines, initial encounter; Translations: [ADVERS EFF OTH VIRAL VACC INIT ENC] Onset: 04-09-2022 Episodic Genitourinary symptoms and ill-defined conditions (8 sources) Increased frequency of urination; Translations: [Frequency of micturition] Onset: 09-19-2020 03-18-2023 Episodic Malaise and fatigue (8 sources) Weakness; Translations: [Fatigue] Onset: 04-09-2022 09-08-2023 Episodic Nausea and vomiting (1 source) Nausea with vomiting, unspecified; Translations: [Nausea and vomiting, intractability of vomiting not specified, unspecified vomiting type R11.2] Onset: 01-24-2021 Resolved: 01-24-2021 Episodic Other aftercare (7 sources) Long-term current use of drug therapy; Translations: [Other shelter (current) drug therapy] Onset: 09-08-2023 09-08-2023 Episodic Other gastrointestinal disorders (15 sources) Dysphagia; Translations: [Dysphagia, unspecified] Onset: 09-29-2023 Resolved: 09-29-2023 07-25-2020 Episodic Other gastrointestinal disorders (2 sources) Dysphagia, unspecified; Translations: [Dysphagia, unspecified] Onset: 02-17-2023 Episodic Other gastrointestinal disorders (9 sources) Heartburn; Translations: [Heartburn] Onset: 09-29-2023 Resolved: 09-29-2023 08-26-2023 Episodic Other lower respiratory disease (12 sources) Cough; Translations: [Cough, unspecified] Onset: 03-06-2022 Resolved: 09-29-2023 Episodic Other lower respiratory disease (7 sources) Snoring; Translations: [Snoring] Onset: 08-25-2023 08-25-2023 Episodic Other nervous system disorders (4 sources) Trigeminal neuralgia; Translations: [TRIGEMINAL NEURALGIA] Onset: 01-11-2022 Episodic Other non-traumatic joint disorders (7 sources) Multiple joint pain; Translations: [Pain in unspecified joint] Onset: 09-08-2023 Resolved: 03-10-2024 09-08-2023 Episodic Other non-traumatic joint disorders (7 sources) Pain in right knee; Translations: [Pain in joint, lower leg] Onset: 09-08-2023 09-08-2023 Episodic Other skin disorders (7 sources) Skin lesion; Translations: [Disorder of the skin and subcutaneous tissue, unspecified] Onset: 09-08-2023 Resolved: 03-10-2024 09-08-2023 Episodic Residual codes; unclassified (7 sources) Periodic limb movement disorder; Translations: [Periodic limb movement disorder] Onset: 08-22-2023 Resolved: 09-08-2023 09-08-2023 Chronic Spondylosis; intervertebral disc disorders; other back problems (7 sources) Acute back pain with sciatica; Translations: [Lumbago with sciatica, left side] Onset: 05-02-2023 Resolved: 03-10-2024 05-02-2023 Episodic Viral infection (1 source) Viral [...] taken Amount of lidocaine used: 1.7 cc [facility]deal [facility] Complete Blood Count Auto Di ffon 09-03-2023 Basophils (Bld) [#/Vol] 0.1 10*3/uL Normal 0.0-0.2 [facility] Comment on above: Performed By: #### E SR, HEPATIC, CREAT, CBC #### [address] Basophils/100 WBC (Bld) 1.2 % Normal . T dianne [facility] Comment on above: Performed By: #### E SR, HEPATIC, CREAT, CBC #### [address] Eosinophils (Bld) [#/Vol] 0.3 10*3/uL Normal 0.0-0.45 [facility] Comment on above: Performed By: #### E SR, HEPATIC, CREAT, CBC #### [address] Eosinophils/100 WBC (Bld) 4.7 % Normal . [facility] Comment on above: Performed By: #### E SR, HEPATIC, CREAT, CBC #### [address] Erythrocyte distribution width (RBC) [Ratio] 13.5 % Normal 12.0-14.8 [facility] Comment on above: Performed By: #### E SR, HEPATIC, CREAT, CBC #### [place] [id number] [place] Hematocrit (Bld) [Volume fraction] 45.4 % Normal 38.8-50.0 [facility] Comment on above: Performed By: #### E SR, HEPATIC, CREAT, CBC #### [address] Hemoglobin (Bld) [Mass/Vol] 15.5 g/dL Normal 13.0-17.0 [facility] Comment on above: Performed By: #### E SR, HEPATIC, CREAT, CBC #### [address] Lymphocytes (Bld) [#/Vol] 1.8 10*3/uL Normal 1.00-4.8 [facility] Comment on above: Performed By: #### E SR, HEPATIC, CREAT, CBC #### [address] Lymphocytes/100 WBC (Bld) 28.6 % Normal . [facility] Comment on above: Performed By: #### E SR, HEPATIC, CREAT, CBC #### [address] MCH (RBC) [Entitic mass] 31.9 pg Normal 27.5-35.2 [facility] Comment on above: Performed By: #### E SR, HEPATIC, CREAT, CBC #### [address] MCV (RBC) [Entitic vol] 93.6 fL Normal 83.5-101 T [facility] Comment on above: Performed By: #### E SR, HEPATIC, CREAT, CBC #### [address] Mean Corpuscular HGB Conc 34.1 g/dL Normal 32.5-35.6 [facility] Comment on above: Performed By: #### E SR, HEPATIC, CREAT, CBC #### [address] Monocytes (Bld) [#/Vol] 0.6 10*3/uL Normal 0.0-0.8 [facility] Comment on above: Performed By: #### E SR, HEPATIC, CREAT, CBC #### [address] Monocytes/100 WBC (Bld) 10.1 % Normal . T he [facility] Comment on above: Performed By: #### E SR, HEPATIC, CREAT, CBC #### [address] Neutrophils (Bld) [#/Vol] 3.4 10*3/uL Normal 1.8-7.7 [facility] Comment on above: Performed By: #### E SR, HEPATIC, CREAT, CBC #### [address] Neutrophils/100 WBC (Bld) 55.4 % Normal . [facility] Comment on above: Performed By: #### E SR, HEPATIC, CREAT, CBC #### [address] NRBC% 0.1 /100{WBC} Normal 0-0.5 [facility] Comment on above: Performed By: #### E SR, HEPATIC, CREAT, CBC #### [address] Platelet mean volume (Bld) [Entitic vol] 8.5 fL Normal 6.6-10.1 [facility] Comment on above: Performed By: #### E SR, HEPATIC, CREAT, CBC #### [address] Platelets (Bld) [#/Vol] 211 10*3/uL Normal 150-450 [facility] Comment on above: Performed By: #### E SR, HEPATIC, CREAT, CBC #### [address] RBC (Bld) [#/Vol] 4.86 10*6/uL Normal 3.90-5.60 [facility] Comment on above: Performed By: #### E SR, HEPATIC, CREAT, CBC #### [address] WBC (Bld) [#/Vol] 6.1 10*3/uL Normal 4.1-10.5 The Count includes the [facility] Comment on above: Performed By: #### E SR, HEPATIC, CREAT, CBC #### [address] Creatinineon 09-03-2023 Creatinine [Mass/Vol] 0.95 mg/dL Normal 0.70-1.30 [facility] Comment on above: Performed By: #### E SR, HEPATIC, CREAT, CBC #### [address] GFR/1.73 sq M.predicted MDRD (S/P/Bld) [Vol rate/Area] mL/min/{1.73_m2} Normal [facility] Comment on above: Result Comment: PERF ORMED BY: [place] [address] PATHOLOGIST [employer] MANAGER MYLES CORTEZ M.D. Performed By: #### E SR, HEPATIC, CREAT, CBC #### [address] Erythrocyte Sedimentation Ra abraham 09-03-2023 ESR (Bld) [Velocity] 18 mm/h Normal 0-19 [facility] Comment on above: Result Comment: PERF ORMED BY: [place] [address] PATHOLOGIST [employer]PER[employer] MANAGER MYLES CORTEZ M.D. Performed By: #### E SR, HEPATIC, CREAT, CBC #### [address] Hepatic Panelon 09-03-2023 Albumin [Mass/Vol] 4.3 g/dL Normal 3.5-5.7 The Count includes the [facility] Comment on above: Performed By: #### E SR, HEPATIC, CREAT, CBC #### [address] Albumin/Globulin [Mass ratio] 1.6 {ratio} Normal [facility] Comment on above: Performed By: #### E SR, HEPATIC, CREAT, CBC #### [facility] [address] [place] [address] [place] ALP [Catalytic activity/Vol] 71 U/L Normal 34-104 [facility] Comment on above: Performed By: #### E SR, HEPATIC, CREAT, CBC #### [facility] [address] [place] [address] [place] ALT [Catalytic activity/Vol] 36 U/L Normal 7-52 [facility] Comment on above: Performed By: #### E SR, HEPATIC, CREAT, CBC #### [facility] [address] [place] [address] [place] AST [Catalytic activity/Vol] 29 U/L Normal 13-39 [facility] Comment on above: Performed By: #### E SR, HEPATIC, CREAT, CBC #### [facility] [address] [place] [address] [place] Bilirubin [Mass/Vol] 0.6 mg/dL Normal 0.3-1.0 [facility] Comment on above: Performed By: #### E SR, HEPATIC, CREAT, CBC #### [facility] [address] [place] [address] [place] Bilirubin,Indirect 0.5 mg/dL Normal The Count includes the [facility] Comment on above: Performed By: #### E SR, HEPATIC, CREAT, CBC #### [facility] [address] [place] [address] [place] Bilirubin.indirect [Mass/Vol] 0.10 mg/dL Normal 0.03-0.18 [facility] Comment on above: Performed By: #### E SR, HEPATIC, CREAT, CBC #### [facility] [address] [place] [id number] [place] Globulin (S) [Mass/Vol] 2.7 g/dL Normal [facility] Comment on above: Performed By: #### E SR, HEPATIC, CREAT, CBC #### [facility] [address] [place] [id number] [place] Protein [Mass/Vol] 7.0 g/dL Normal 6.4-8.9 The Count includes the [facility] Comment on above: Performed By: #### E SR, HEPATIC, CREAT, CBC #### [facility] [address] MR SHOULDER LEFT WO IV CONTR [...] shoulder without contrast to be done at [facility] in [place], please call to schedule CT chest w [facility] 03-27-2023 CT chest w [facility] [place] [address] [place] [address] CT Scan Report Signed Patient: Anirudh Johnston MR#: [id number] 79 : 1960 Acct:[id number] Age/Sex: 62 / M ADM Date: 03/27/23 Loc: CT Room: Type: [facility] Attending Dr: Grady Hitchcock MD Copies to: [...] Perkins Jr., D.O.03/27/2023 9:58 AM Dictation Location: [place] [address] Transcribed By: [facility] 03/27/2358 Dictated By: Oscar Perkins Jr, DO 03/27/23 0941 Signed By: 03/27/2358 Normal [facility] CBC (INCLUDES DIFF/PLT)on Basophils (Bld) [#/Vol] 0.041 10*3/uL Normal 0-200 [facility] Comment on above: Performed By: #### 6 399, 37042, 809, 375 #### [facility] [address] [facility], [address] [place] [address] Chef: Rory Bell MD Basophils/100 WBC (Bld) 0.7 % Normal [facility] Comment on above: Performed By: #### 6 399, 52434, 809, 375 #### [facility] [address] [place] [address], [address] [place] [id number] Chef: Rory Bell MD Eosinophils (Bld) [#/Vol] 0.278 10*3/uL Normal 15-500 [facility] Comment on above: Performed By: #### 6 399, 70279, 809, 375 #### [facility] [place] [address] Chef: Rory Bell MD Eosinophils/100 WBC (Bld) 4.8 % Normal [facility] Comment on above: Performed By: #### 6 399, 13280, 809, 375 #### [facility] [place] [address] Chef: Rory Bell MD Erythrocyte distribution width (RBC) [Ratio] 12.6 % Normal 11.0-15.0 [facility] Comment on above: Performed By: #### 6 399, 94606, 809, 375 #### [facility] [place] [address] Chef: Rory Bell MD Hematocrit (Bld) [Volume fraction] 41.4 % Normal 38.5-50.0 [facility] Comment on above: Performed By: #### 6 399, 24366, 809, 375 #### [facility] [place] [address] Chef: Rory Bell MD Hemoglobin (Bld) [Mass/Vol] 14.1 g/dL Normal 13.2-17.1 [facility] Comment on above: Performed By: #### 6 399, 52471, 809, 375 #### [facility] [place] [address] Chef: Rory Bell MD Lymphocytes (Bld) [#/Vol] 1.131 10*3/uL Normal 850-3900 [facility] Comment on above: Performed By: #### 6 399, 77890, 809, 375 #### [facility] [place] [address] Chef: Rory Bell MD Lymphocytes/100 WBC (Bld) 19.5 % Normal [facility] Comment on above: Performed By: #### 6 399, 81132, 809, 375 #### [facility] [place] [address] Chef: Rory Bell MD MCH (RBC) [Entitic mass] 31.8 pg Normal 27.0-33.0 [facility] Comment on above: Performed By: #### 6 399, 40646, 809, 375 #### [facility] [place] [address] Chef: Rory Bell MD MCHC (RBC) [Mass/Vol] 34.1 g/dL Normal 32.0-36.[address] [facility] Comment on above: Performed By: #### 6 399, 47013, 809, 375 #### [facility] [place] [address] Chef: Rory Bell MD MCV (RBC) [Entitic vol] 93.2 fL Normal 80.0-100.0 [facility] Comment on above: Performed By: #### 6 399, 45243, 809, 375 #### [facility] [place] [address] Chef: Rory Bell MD Monocytes (Bld) [#/Vol] 0.435 10*3/uL Normal 200-950 [facility] Comment on above: Performed By: #### 6 399, 74679, 809, 375 #### [facility] [place] [address] Chef: Rory Bell MD Monocytes/100 WBC (Bld) 7.5 % Normal [facility] Comment on above: Performed By: #### 6 399, 91713, 809, 375 #### [facility] [place] [address] Chef: Rory Bell MD Neutrophils (Bld) [#/Vol] 3.915 10*3/uL Normal 9494-6486 [facility] Comment on above: Performed By: #### 6 399, 99040, 809, 375 #### [facility] [place] [address] Chef: Rory Bell MD Neutrophils/100 WBC (Bld) 67.5 % Normal [facility] Comment on above: Performed By: #### 6 399, 21939, 809, 375 #### [facility] [place] [address] Chef: Rory Bell MD Platelet mean volume (Bld) [Entitic vol] 10.0 fL Normal 7.5-12.5 [facility] Comment on above: Performed By: #### 6 399, 79727, 809, 375 #### [facility] [place] [address] Chef: Rory Bell MD Platelets (Bld) [#/Vol] 269 10*3/uL Normal 140-400 [facility] Comment on above: Performed By: #### 6 399, 26601, 809, 375 #### [facility] [place] [address] Chef: Rory Bell MD RBC (Bld) [#/Vol] 4.44 10*6/uL Normal 4.20-5.80 [facility] Comment on above: Performed By: #### 6 399, 56719, 809, 375 #### [facility] [place] [address] Chef: Rory Bell MD WBC (Bld) [#/Vol] 5.8 10*3/uL Normal 3.8-10.8 [facility] Comment on above: Performed By: #### 6 399, 13726, 809, 375 #### [facility] [place] [address] Chef: Rory Bell MD CREATININEon 10-19-2022 Creatinine [Mass/Vol] 0.92 mg/dL Normal 0.70-1.[address] [facility] Comment on above: Order Comment: FASTI NG:NO FASTING: NO Performed By: #### 6 399, 86625, 809, 375 #### [facility] [place] [address] Chef: Rory Bell MD GFR/1.73 sq M.predicted among non-blacks MDRD (S/P/Bld) [Vol rate/Area] 95 mL/min/{1.73_m2} Normal > OR = 60 [facility] Comment on above: Order Comment: FASTI NG:NO FASTING: NO Result Comment: The eGFR is based on the CKD-EPI 2020 equation. To calculate the new eGFR from a previous Creatinine or Cystatin C result, go to https://www.kidney.org/professionals/ kdoqi/gfr%5Fcalculator Performed By: #### 6 399, 60925, 809, 375 #### [facility] [place] [address] Chef: Rory Bell MD HEPATIC FUNCTION PANEL Albumin [Mass/Vol] 4.0 g/dL Normal 3.6-5.1 [facility] Comment on above: Performed By: #### 6 399, 38780, 809, 375 #### [facility] [place] [address] Chef: Rory Bell MD Albumin/Globulin [Mass ratio] 1.5 {ratio} Normal 1.0-2.5 [facility] Comment on above: Performed By: #### 6 399, 19260, 809, 375 #### [facility] [place] [address] Chef: Rory Bell MD ALP [Catalytic activity/Vol] 69 U/L Normal 35-144 [facility] Comment on above: Performed By: #### 6 399, 50552, 809, 375 #### [facility] [place] [address] Chef: Rory Bell MD ALT [Catalytic activity/Vol] 28 U/L Normal 9-46 [facility] Comment on above: Performed By: #### 6 399, 91772, 809, 375 #### [facility] [place] [address] Chef: Rory Bell MD AST [Catalytic activity/Vol] 24 U/L Normal 10-35 [facility] Comment on above: Performed By: #### 6 399, 98230, 809, 375 #### [facility] [place] [address] Chef: Rory Bell MD Bilirubin [Mass/Vol] 0.5 mg/dL Normal 0.2-1.2 [facility] Comment on above: Performed By: #### 6 399, 71808, 809, 375 #### [facility] [place] [address] Chef: Rory Bell MD BILIRUBIN, INDIRECT 0.4 mg/dL (calc) Normal 0.2-1.2 [facility] Comment on above: Performed By: #### 6 399, 81848, 809, 375 #### [facility] [place] [address] Chef: Rory Bell MD Bilirubin.indirect [Mass/Vol] 0.1 mg/dL Normal < OR = 0.2 [facility] Comment on above: Performed By: #### 6 399, 59906, 809, 375 #### [facility] [place] [address] Chef: Rory Bell MD Globulin (S) [Mass/Vol] 2.6 g/dL Normal 1.9-3.7 [facility] Comment on above: Performed By: #### 6 399, 65488, 809, 375 #### [facility] [place] [address] Chef: Rory Bell MD Protein [Mass/Vol] 6.6 g/dL Normal 6.1-8.1 [facility] Comment on above: Performed By: #### 6 399, 54751, 809, 375 #### [facility] [place] [address] Chef: Rory Bell MD SED RATE BY MODIFIED MELISSA Ballard 10-19-2022 SED RATE BY MODIFIED IRENE 22 mm/h High < OR = 20 [facility] Comment on above: Performed By: #### 6 399, 66909, 809, 375 #### [facility] [place] [address] Chef: Rory Bell MD CBC (INCLUDES DIFF/PLT)on Basophils (Bld) [#/Vol] 0.059 10*3/uL Normal 0-200 [facility] Comment on above: Performed By: #### 8 09, 12260, 375, 6399 #### [facility] [place] [address] Chef: Rory Bell MD Basophils/100 WBC (Bld) 0.9 % Normal [facility] Comment on above: Performed By: #### 8 09, 10990, 375, 6399 #### [facility] [place] [address] Chef: Rory Bell MD Eosinophils (Bld) [#/Vol] 0.383 10*3/uL Normal 15-500 [facility] Comment on above: Performed By: #### 8 09, 60898, 375, 6399 #### [facility] [place] [address] Chef: Rory Bell MD Eosinophils/100 WBC (Bld) 5.8 % Normal [facility] Comment on above: Performed By: #### 8 09, 81464, 375, 6399 #### [facility] [place] [address] Chef: Rory Bell MD Erythrocyte distribution width (RBC) [Ratio] 12.6 % Normal 11.0-15.0 [facility] Comment on above: Performed By: #### 8 09, 57257, , 6399 #### [facility] [place] [address] Chef: Rory Bell MD Hematocrit (Bld) [Volume fraction] 42.5 % Normal 38.5-50.0 [facility] Comment on above: Performed By: #### 8 09, , 375, 6399 #### [facility] [place] [address] Chef: Rory Bell MD Hemoglobin (Bld) [Mass/Vol] 14.6 g/dL Normal 13.2-17.1 [facility] Comment on above: Performed By: #### 8 09, 40676, 375, 6399 #### [facility] [place] [address] Chef: Rory Bell MD Lymphocytes (Bld) [#/Vol] 1.274 10*3/uL Normal 850-3900 [facility] Comment on above: Performed By: #### 8 09, , 375, 6399 #### [facility] [place] [address] Chef: Rory Bell MD Lymphocytes/100 WBC (Bld) 19.3 % Normal [facility] Comment on above: Performed By: #### 8 , , 375, 6399 #### [facility] [place] [address] Chef: Rory Bell MD MCH (RBC) [Entitic mass] 31.3 pg Normal 27.0-33.0 [facility] Comment on above: Performed By: #### 8 09, 43307, 375, 6399 #### [facility] [place] [address] Chef: Rory Bell MD MCHC (RBC) [Mass/Vol] 34.4 g/dL Normal 32.0-36.[address] [facility] Comment on above: Performed By: #### 8 09, 49597, , 6399 #### [facility] [place] [address] Chef: Rory Bell MD MCV (RBC) [Entitic vol] 91.0 fL Normal 80.0-100.0 [facility] Comment on above: Performed By: #### 8 09, , , 6399 #### [facility] [place] [address] Chef: Rory Bell MD Monocytes (Bld) [#/Vol] 0.442 10*3/uL Normal 200-950 [facility] Comment on above: Performed By: #### 8 09, , 375, 6399 #### [facility] [place] [address] Chef: Rory Bell MD Monocytes/100 WBC (Bld) 6.7 % Normal [facility] Comment on above: Performed By: #### 8 09, , 375, 6399 #### [facility] [place] [address] Chef: Rory Bell MD Neutrophils (Bld) [#/Vol] 4.442 10*3/uL Normal 7156-5574 [facility] Comment on above: Performed By: #### 8 09, , 375, 6399 #### [facility] [place] [address] Chef: Rory Bell MD Neutrophils/100 WBC (Bld) 67.3 % Normal [facility] Comment on above: Performed By: #### 8 09, , 375, 6399 #### [facility] [place] [address] Chef: Rory Bell MD Platelet mean volume (Bld) [Entitic vol] 10.1 fL Normal 7.5-12.5 [facility] Comment on above: Performed By: #### 8 09, , 375, 6399 #### [facility] [place] [address] Chef: Rory Bell MD Platelets (Bld) [#/Vol] 258 10*3/uL Normal 140-400 [facility] Comment on above: Performed By: #### 8 09, 80070, 375, 6399 #### [facility] [place] [address] Chef: Rory Bell MD RBC (Bld) [#/Vol] 4.67 10*6/uL Normal 4.20-5.80 [facility] Comment on above: Performed By: #### 8 09, 66850, 375, 6399 #### [facility] [place] [address] Chef: Rory Bell MD WBC (Bld) [#/Vol] 6.6 10*3/uL Normal 3.8-10.8 [facility] Comment on above: Performed By: #### 8 09, 30885, 375, 6399 #### [facility] [place] [address] Chef: Rory Bell MD CREATININEon 09-07-2022 Creatinine [Mass/Vol] 0.98 mg/dL Normal 0.70-1.[address] [facility] [address] [facility] Comment on above: Performed By: #### 1 0256, 809, 375, 6399 #### [facility] [place] [address] Chef: Rory Bell MD GFR/1.73 sq M.predicted among [...] 809, 375, 6399 #### [facility] [place] [address] Chef: Rory Bell MD HEPATIC FUNCTION PANELon Albumin [Mass/Vol] 3.9 g/dL Normal 3.6-5.1 [facility] Comment on above: Performed By: #### 1 0256, 809, 375, 6399 #### [facility] [place] [address] Chef: Rory Bell MD Albumin/Globulin [Mass ratio] 1.5 {ratio} Normal 1.0-2.5 [facility] Comment on above: Performed By: #### 1 0256, 809, 375, 6399 #### [facility] [place] [address] Chef: Rory Bell MD ALP [Catalytic activity/Vol] 67 U/L Normal 35-144 [facility] Comment on above: Performed By: #### 1 0256, 809, 375, 6399 #### [facility] [place] [address] Chef: Rory Bell MD ALT [Catalytic activity/Vol] 24 U/L Normal 9-46 [facility] Comment on above: Performed By: #### 1 0256, 809, 375, 6399 #### [facility] [place] [address] Chef: Rory Bell MD AST [Catalytic activity/Vol] 22 U/L Normal 10-35 [facility] Comment on above: Performed By: #### 1 0256, 809, 375, 6399 #### [facility] [place] [address] Chef: Rory Bell MD Bilirubin [Mass/Vol] 0.5 mg/dL Normal 0.2-1.2 [facility] Comment on above: Performed By: #### 1 0256, 809, 375, 6399 #### [facility] [place] [address] Chef: Rory Bell MD BILIRUBIN, INDIRECT 0.4 mg/dL (calc) Normal 0.2-1.2 [facility] Comment on above: Performed By: #### 1 0256, 809, 375, 6399 #### [facility] [place] [address] Chef: Rory Bell MD Bilirubin.indirect [Mass/Vol] 0.1 mg/dL Normal < OR = 0.2 [facility] Comment on above: Performed By: #### 1 0256, 809, 375, 6399 #### [facility] [place] [address] Chef: Rory Bell MD Globulin (S) [Mass/Vol] 2.6 g/dL Normal 1.9-3.7 [facility] Comment on above: Performed By: #### 1 0256, 809, 375, 6399 #### [facility] [place] [address] Chef: oRry Bell MD Protein [Mass/Vol] 6.5 g/dL Normal 6.1-8.1 [facility] Comment on above: Performed By: #### 1 0256, 809, 375, 6399 #### [facility] [place] [address] Chef: Rory Bell MD SED RATE BY MODIFIED WESTERG MELISSAon 09-07-2022 SED RATE BY MODIFIED WESTERGREN 19 mm/h Normal < OR = 20 [facility] Comment on above: Performed By: #### 8 09, 09923, 375, 6399 #### [facility] [place] [address] Chef: Rory Bell MD CBC (INCLUDES DIFF/PLT)on Basophils (Bld) [#/Vol] 0.062 10*3/uL Normal 0-200 [facility] Comment on above: Performed By: #### 8 09, , , 6399 #### [facility] [place] [address] Chef: Rory Bell MD Basophils/100 WBC (Bld) 0.9 % Normal [facility] Comment on above: Performed By: #### 8 09, , , 63 #### [facility] [place] [address] Chef: Rory Bell MD Eosinophils (Bld) [#/Vol] 0.435 10*3/uL Normal 15-500 [facility] Comment on above: Performed By: #### 8 09, , , 63 #### [facility] [place] [address] Chef: Rory Bell MD Eosinophils/100 WBC (Bld) 6.3 % Normal [facility] Comment on above: Performed By: #### 8 09, , , 6399 #### [facility] [place] [address] Chef: Rory Bell MD Erythrocyte distribution width (RBC) [Ratio] 12.8 % Normal 11.0-15.0 [facility] Comment on above: Performed By: #### 8 09, , , 6399 #### [facility] [place] [address] Chef: Rory Bell MD Hematocrit (Bld) [Volume fraction] 42.9 % Normal 38.5-50.0 [facility] Comment on above: Performed By: #### 8 09, , , 6399 #### [facility] [place] [address] Chef: Rory Bell MD Hemoglobin (Bld) [Mass/Vol] 15.0 g/dL Normal 13.2-17.1 [facility] Comment on above: Performed By: #### 8 09, , 375, 6399 #### [facility] [place] [address] Chef: Rory Bell MD Lymphocytes (Bld) [#/Vol] 1.566 10*3/uL Normal 850-3900 [facility] Comment on above: Performed By: #### 8 09, 09458, 375, 6399 #### [facility] [place] [address] Chef: Rory Bell MD Lymphocytes/100 WBC (Bld) 22.7 % Normal [facility] Comment on above: Performed By: #### 8 09, 06959, 375, 6399 #### [facility] [place] [address] Chef: Rory Bell MD MCH (RBC) [Entitic mass] 31.9 pg Normal 27.0-33.0 [facility] Comment on above: Performed By: #### 8 09, , 375, 6399 #### [facility] [place] [address] Chef: Rory Bell MD MCHC (RBC) [Mass/Vol] 35.0 g/dL Normal 32.0-36.[address] [facility] Comment on above: Performed By: #### 8 09, 47220, 375, 6399 #### [facility] [place] [address] Chef: Rory Bell MD MCV (RBC) [Entitic vol] 91.3 fL Normal 80.0-100.0 [facility] Comment on above: Performed By: #### 8 09, 89229, 375, 6399 #### [facility] [place] [address] Chef: Rory Bell MD Monocytes (Bld) [#/Vol] 0.669 10*3/uL Normal 200-950 [facility] Comment on above: Performed By: #### 8 09, 28837, 375, 6399 #### [facility] of [address], [address] [place] [address] Chef: Rory Bell MD Monocytes/100 WBC (Bld) 9.7 % Normal [facility] Comment on above: Performed By: #### 8 09, 32334, 375, 6399 #### [facility] of [address], [address] [place] [address] Chef: Rory Bell MD Neutrophils (Bld) [#/Vol] 4.168 10*3/uL Normal 2147-8881 [facility] Comment on above: Performed By: #### 8 09, 58834, 375, 6399 #### [facility] of [address], [address] [place] [address] Chef: Rory Bell MD Neutrophils/100 WBC (Bld) 60.4 % Normal [facility] Comment on above: Performed By: #### 8 09, , 375, 6399 #### [facility] of [address], [address] [place] [address] Chef: Rory Bell MD Platelet mean volume (Bld) [Entitic vol] 10.2 fL Normal 7.5-12.5 [facility] Comment on above: Performed By: #### 8 09, 46687, 375, 6399 #### [facility] [place] [address] Chef: Rory Bell MD Platelets (Bld) [#/Vol] 276 10*3/uL Normal 140-400 [facility] Comment on above: Performed By: #### 8 09, 36962, 375, 6399 #### [facility] [place] [address] Chef: Rory Bell MD RBC (Bld) [#/Vol] 4.70 10*6/uL Normal 4.20-5.80 [facility] Comment on above: Performed By: #### 8 09, 95430, 375, 6399 #### [facility] [place] [address] [address] Chef: Rory Bell MD WBC (Bld) [#/Vol] 6.9 10*3/uL Normal 3.8-10.8 [facility] Comment on above: Performed By: #### 8 09, 19003, 375, 6399 #### [facility] [place] [address] Chef: Rory Bell MD CREATININEon 08-24-2022 Creatinine [Mass/Vol] 1.02 mg/dL Normal 0.70-1.[address] [facility] [address] [facility] Comment on above: Order Comment: FASTI NG:NO FASTING: NO Performed By: #### 8 09, 74084, 375, 6399 #### [facility] [place] [address] Chef: Rory Bell MD GFR/1.73 sq M.predicted among non-blacks MDRD (S/P/Bld) [Vol rate/Area] 85 mL/min/{1.73_m2} Normal > OR = 60 [facility] Comment on above: Order Comment: FASTI NG:NO FASTING: NO Result Comment: The eGFR is based on the CKD-EPI 2020 equation. To calculate the new eGFR from a previous Creatinine or Cystatin C result, go to https://www.kidney.org/professionals/ kdoqi/gfr%5Fcalculator Performed By: #### 8 09, 93804, 375, 6399 #### [facility] [place] [address] Chef: Rory Bell MD HEPATIC FUNCTION PANELon Albumin [Mass/Vol] 4.2 g/dL Normal 3.6-5.1 [facility] Comment on above: Performed By: #### 8 09, 82788, 375, 6399 #### [facility] [place] [address] Chef: Rory Bell MD Albumin/Globulin [Mass ratio] 1.6 {ratio} Normal 1.0-2.5 [facility] Comment on above: Performed By: #### 8 09, 08790, 375, 6399 #### [facility] of [address], [address] [place] [address] Chef: Rory Bell MD ALP [Catalytic activity/Vol] 71 U/L Normal 35-144 [facility] Comment on above: Performed By: #### 8 09, 43577, 375, 6399 #### [facility] of [address], [address] [place] [address] Chef: Rory Bell MD ALT [Catalytic activity/Vol] 30 U/L Normal 9-46 [facility] Comment on above: Performed By: #### 8 09, 90045, 375, 6399 #### [facility] [place] [address] Chef: Rory Bell MD AST [Catalytic activity/Vol] 22 U/L Normal 10-35 [facility] Comment on above: Performed By: #### 8 09, 97502, 375, 6399 #### [facility] [place] [address] Chef: Rory Bell MD Bilirubin [Mass/Vol] 0.6 mg/dL Normal 0.2-1.2 [facility] Comment on above: Performed By: #### 8 09, 34867, 375, 6399 #### [facility] [place] [address] Chef: Rory Bell MD BILIRUBIN, INDIRECT 0.5 mg/dL (calc) Normal 0.2-1.2 [facility] Comment on above: Performed By: #### 8 09, 37212, 375, 6399 #### [facility] [place] [address] Chef: Rory Bell MD Bilirubin.indirect [Mass/Vol] 0.1 mg/dL Normal < OR = 0.2 [facility] Comment on above: Performed By: #### 8 09, 63789, 375, 6399 #### [facility] [place] [address] [place] [address] Chef: Rory Bell MD Globulin (S) [Mass/Vol] 2.7 g/dL Normal 1.9-3.7 [facility] Comment on above: Performed By: #### 8 09, 79145, 375, 6399 #### [facility] [address], [address] [place] [address] Chef: Rory Bell MD Protein [Mass/Vol] 6.9 g/dL Normal 6.1-8.1 [facility] Comment on above: Performed By: #### 8 09, 85597, 375, 6399 #### [facility] [place] [address] Chef: Rory Bell MD SED RATE BY MODIFIED WESTERG RENon 08-24-2022 SED RATE BY MODIFIED WESTERGREN 14 mm/h Normal < OR = 20 [facility] Comment on above: Performed By: #### 8 09, 23227, 375, 6399 #### [facility] of [address], [address] [place] [address] Chef: Rory Bell MD COVID + FLU Quick Testingon 07-20-2022 SARS-CoV-2 (COVID-19) RNA WALTER+probe Ql (Unsp spec) Negative [facility] [email or web address] Other COVID + FLU Quick Testing Negative [facility] [email or web address] Other Alanine aminotransferase [En zymatic activity/volume] in [...] 07-03-2022 Basophils/100 WBC (Bld) 0.8 % . F [facility] Bilirubin.total [Mass/volume ] in Serum or PlasmaOrdered By: Justo Carter on 07-03-2022 Bilirubin [Mass/Vol] 0.7 mg/dL 0.3-1.0 [facility] C reactive protein [Mass/vol ume] in Serum or PlasmaOrdered By: Justo Carter on 07-03-2022 CRP [Mass/Vol] 0.9 mg/dL 0.0-0.4 [facility] Calcium [Mass/volume] in Ser um or PlasmaOrdered By: Justo Carter on 07-03-2022 Calcium [Mass/Vol] 9.5 mg/dL 8.6-10.3 [facility] Carbon dioxide, total [Moles /volume] in Serum or PlasmaOrdered By: Justo Carter 07-03-2022 CO2 [Moles/Vol] 29.1 mmol/L 21.0-31.0 [facility] Chloride [Moles/volume] in S elissa or PlasmaOrdered By: Justo Carter on 07-03-2022 Chloride [Moles/Vol] 105 mmol/L 98-107 [facility] Creatinine [Mass/volume] in Serum or PlasmaOrdered By: Justo Carter on 07-03-2022 Creatinine [Mass/Vol] 1.15 mg/dL 0.70-1.30 [facility] Eosinophils Auto (Bld) [#/Vo l]Ordered By: Justo [...] on 07-03-2022 Globulin (S) [Mass/Vol] 3.0 g/dL [facility] Glucose [Mass/volume] in Ser um or PlasmaOrdered By: Justo Carter on 07-03-2022 Glucose [Mass/Vol] 95 mg/dL 74-109 [facility] Comment on above: ADA recommended refe [...] HBV surface Ag IA Ql Negative Negative [facility] Hepatitis C virus IgG Ab [Pr esence] [...] 07-03-2022 MCHC (RBC) [Mass/Vol] 34.2 g/dL 32.5-35.6 [facility] MCV Auto (RBC) [Entitic vol] Ordered By: Justo Carter on 07-03-2022 MCV (RBC) [Entitic vol] 92.4 fL 83.5-101 F [facility] Monocytes Auto (Bld) [#/Vol] Ordered By: Justo Carter on 07-03-2022 Monocytes (Bld) [#/Vol] 0.6 10*3/uL 0.0-0.8 [facility] Monocytes/100 WBC Auto (Bld) Ordered By: Justo Carter on 07-03-2022 Monocytes/100 WBC (Bld) 8.2 % . F [facility] Neutrophils Auto (Bld) [#/Vo l]Ordered By: Justo Carter on 07-03-2022 Neutrophils (Bld) [#/Vol] 5.2 10*3/uL 1.8-7.7 [facility] Neutrophils/100 WBC Auto (Bl d)Ordered By: Justo Carter on 07-03-2022 Neutrophils/100 WBC (Bld) 67.2 % . [facility] No Panel InformationOrdered By: Justo Carter on 07-03-2022 Hepatitis B Core Total Antibody Negative Negative [facility] Comment on above: Performed at: - [address] [id number] Director: Riley Donnelly PhD, Phone: [phone] Hepatitis C Interpretation See comment . [facility] [...] on 07-03-2022 Potassium [Moles/Vol] 3.8 mmol/L 3.5-5.1 [facility] Protein [Mass/volume] in Ser um or PlasmaOrdered By: Justo Carter on 07-03-2022 Protein [Mass/Vol] 7.5 g/dL 6.4-8.9 [facility] RBC Auto (Bld) [#/Vol]Ordere d By: Justo Carter on 07-03-2022 RBC (Bld) [#/Vol] 4.77 10*6/uL 3.90-5.60 [facility] Serum hepatitis B virus surf nisreen antibody detectionOrdered By: Justo Carter on 07-03-2022 HBV surface Ab Ql (S) Non-Reactive . [facility] Comment on above: Non Reactive: Incons istent with immunity, less than 10 mIU/mL Reactive: Consistent with immunity, greater than 9.9 mIU/mL Serum or plasma albumin/glob ulin mass ratioOrdered By: Justo Carter on 07-03-2022 Albumin/Globulin [Mass ratio] 1.5 {ratio} [facility] Serum or plasma anion gap de terminationOrdered By: Justo Carter on 07-03-2022 Anion gap [Moles/Vol] 10.7 mmol/L 6.0-15.0 [facility] Sodium [Moles/volume] in Ser um or PlasmaOrdered By: Justo Carter on 07-03-2022 Sodium [Moles/Vol] 141 mmol/L 136-145 [facility] Urea nitrogen [Mass/volume] in Serum or PlasmaOrdered By: Justo Carter on 07-03-2022 Urea nitrogen [Mass/Vol] 21 mg/dL 7-25 [facility] WBC Auto (Bld) [#/Vol]Ordere d By: Justo Carter on 07-03-2022 WBC (Bld) [#/Vol] 7.8 10*3/uL 4.1-10.5 [facility] RAD - MISCon 04-19-2022 RAD - MISC [id number] Normal [facility] CBC AUTO DIFFon 04-07-2022 BASO # 0.1 103/ul Normal 0.0-0.1 [facility] Comment on above: Performed By: #### C BC ####[facility] [address] [place] [address]Dr[address] Amberhector Francis Basophils/100 WBC (Bld) 0.7 % Normal 0.2-2.0 [facility] Comment on above: Performed By: #### C BC ####[facility] [address] [place] [id number]. Indira Francis EO # 0.0 103/ul Normal 0.0-0.7 [facility] Comment on above: Performed By: #### C BC ####[facility] [address] [place] [address]Dr. Indira Francis Eosinophils/100 WBC (Bld) 0.2 % Critically low 0.9-7.0 [facility] Comment on above: Performed By: #### C BC ####[facility] [address] [place], [place] [address]Dr. Indira Francis Erythrocyte distribution width (RBC) [Ratio] 12.6 % Normal 11.0-15.0 [facility] Comment on above: Performed By: #### C BC ####[facility] [address] [place], [place] [address]Dr. Indira Francis Hematocrit (Bld) [Volume fraction] 43.3 % Normal 42.0-54.0 [facility] Comment on above: Performed By: #### C BC ####[facility] [address] [place], [place] [address]Dr. Indira Francis Hemoglobin (Bld) [Mass/Vol] 14.6 g/dL Normal 14.0-18.0 [facility] Comment on above: Performed By: #### C BC ####[facility] [address] [place], [place] [address]Dr. Indira Francis IG # 0.03 10e3/ul Normal 0.00-0.03 [facility] Comment on above: Performed By: #### C BC ####[facility] [address] [place], [place] [address]Dr. Indira Francis IG % 0.3 % Normal 0.0-0.5 [facility] Comment on above: Performed By: #### C BC ####[facility] [address] [place], [place] [address]Dr. Amberhector Francis LYMPH # 0.5 103/ul Critically low 1.2-3.8 [facility] Comment on above: Performed By: #### C BC ####[facility] [address] [place] [id number]. Indira Francis Lymphocytes/100 WBC (Bld) 5.5 % Critically low 20.5-60.0 [facility] Comment on above: Performed By: #### C BC ####[facility] [address] [place] [id number] Francis MANUAL DIFF REQ NO Normal [facility] Comment on above: Performed By: #### C BC ####[facility] [address]ff[address] [place] [id number]. Indira Francis MCH (RBC) [Entitic mass] 30.9 pg Normal 25.9-34.0 [facility] Comment on above: Performed By: #### C BC ####[facility] Y[address]pvnim[address] [place] [id number]. Indira Francis MCHC (RBC) [Mass/Vol] 33.7 g/dL Normal 29.9-35.2 [facility] Comment on above: Performed By: #### C BC ####[facility] Bbathfpvs[address] [place] [id number]. Indira Francis MCV (RBC) [Entitic vol] 91.7 fL Normal 80.0-94.0 [facility] Comment on above: Performed By: #### C BC ####[facility] [address]adq[address] [place] [id number]. Indira Francis MONO # 0.8 103/ul Normal 0.3-0.8 [facility] Comment on above: Performed By: #### C BC ####[facility] Datjofijky[address] [place] [id number]. Indira Francis Monocytes/100 WBC (Bld) 8.5 % Normal 1.7-12.0 [facility] Comment on above: Performed By: #### C BC ####[facility] Szsmgmtyze[address] [place] [phone]. Indira Francis NEUT # 7.8 103/ul Critically high 1.4-6.5 [facility] Comment on above: Performed By: #### C BC ####[facility] E[address]tn[address]cy[address] [place], [place] [address]Cs. Indira Francis Neutrophils/100 WBC (Bld) 84.8 % Critically high 43.0-75.0 [facility] Comment on above: Performed By: #### C BC ####[facility] [address]azgrzw[address] [place] [id number]. Indira Francis Platelet mean volume (Bld) [Entitic vol] 9.4 fL Critically low 9.5-13.5 [facility] Comment on above: Performed By: #### C BC ####[facility] [address] [place] [phone]. Indira Farncis PLT 241 103/ul Normal 150-450 [facility] Comment on above: Performed By: #### C BC ####[facility] Zaochifarp[address] [place] [id number]. Indira Francis RBC 4.72 106/ul Normal 4.70-6.10 [facility] Comment on above: Performed By: #### C BC ####[facility] [address]pbf[address] [place] [phone]. Indira Francis WBC 9.2 103/ul Normal 4.0-11.0 [facility] Comment on above: Performed By: #### C BC ####[facility] Touxwxcfbv[address] [place] [id number]. Indira Francis CT STROKE HEAD WOon 04-07-20 [...] GIBSON MARINELLI Date: 2022-04-07 20:48 Normal [facility] PROF 14(COMP METB)on 04-07- 022 Albumin [Mass/Vol] 3.6 g/dL Normal 3.4-5.0 [facility] Comment on above: Performed By: #### C MP #### [facility] [address] [place] [address] Dr. Indira Francis Albumin/Globulin [Mass ratio] 0.9 {ratio} Normal [facility] Comment on above: Performed By: #### C MP #### [facility] [address] [place] [address] Dr. Indira Francis ALP [Catalytic activity/Vol] 88 U/L Normal 46-116 [facility] Comment on above: Performed By: #### C MP #### [facility] [address] [place] [address] Dr. Indira Francis ALT [Catalytic activity/Vol] 30 U/L Normal 16-63 [facility] Comment on above: Performed By: #### C MP #### [facility] [address] [address] [address] Indira Francis Anion gap [Moles/Vol] 16.2 mmol/L Normal [facility] Comment on above: Performed By: #### C MP #### [facility] [address] [address] [address] Indira Francis AST [Catalytic activity/Vol] 24 U/L Normal 15-37 [facility] Comment on above: Performed By: #### C MP #### [facility] [address] [place] [address] Dr. Indira Francis Bilirubin [Mass/Vol] 0.8 mg/dL Normal 0.2-1.0 [facility] Comment on above: Performed By: #### C MP #### [facility] [address] [address] [address] Indira Francis Calcium [Mass/Vol] 9.3 mg/dL Normal 8.5-10.1 [facility] Comment on above: Performed By: #### C MP #### [facility] [address] [address] [address] Indira Francis Chloride [Moles/Vol] 103 mmol/L Normal 98-107 [facility] Comment on above: Performed By: #### C MP #### [facility] [address] [address] [address] Indira Francis CO2 [Moles/Vol] 22.7 mmol/L Normal 21.0-32.0 [facility] Comment on above: Performed By: #### C MP #### [facility] [address] [address] [address] Indira Francis Creatinine [Mass/Vol] 1.27 mg/dL Normal 0.70-1.30 [facility] Comment on above: Performed By: #### C MP #### [facility] [address] [address] [address] Indira Francis EGFR-AF IRISH >60 Normal >=60 [facility] Comment on above: Performed By: #### C MP #### [facility] [address] [address] [address] Indira Francis EGFR-NON AF IRISH 58 mL/min/1.73m2 Critically low >=60 [facility] Comment on above: Performed By: #### C MP #### [facility] [address] [address] [address] Indira Francis Globulin (S) [Mass/Vol] 4.1 g/dL Normal [facility] Comment on above: Performed By: #### C MP #### [facility] [address] [address] [address] Indria Francis Glucose [Mass/Vol] 117 mg/dL Critically high 74-106 [facility] Comment on above: Performed By: #### C MP #### [facility] [address] [address] [address] Indira Francis Potassium [Moles/Vol] 3.9 mmol/L Normal 3.5-5.1 [facility] Comment on above: Performed By: #### C MP #### [facility] [address] [address] [address] Indira Francis Protein [Mass/Vol] 7.7 g/dL Normal 6.4-8.2 [facility] Comment on above: Performed By: #### C MP #### [facility] [address] [address] [address] Indira Francis Sodium [Moles/Vol] 138 mmol/L Normal 136-145 [facility] Comment on above: Performed By: #### C MP #### [facility] [address] [address] [address] Indira Francis Urea nitrogen [Mass/Vol] 19.0 mg/dL Critically high 7.0-18.0 [facility] Comment on above: Performed By: #### C MP #### [facility] [address] [address] [address] Indira Francis Urea nitrogen/Creatinine [Mass ratio] 15.0 mg/mg Normal [facility] Comment on above: Performed By: #### C MP #### [facility] [address] [address] [address] Indira Francis TROPONIN, HIGH SENSITIVITYon 04-07-2022 HSTROP 5.9 pg/mL Normal 4.0-76.1 [facility] Comment on above: Result Comment: CUT- OFF POINTS HAVE BEEN ESTABLISHED BASED ON THE FOURTH UNIVERSAL DEFINITIONS OF MYOCARDIAL INFARCTION. THE UPPER REFERENCE LIMIT (URL) OF TROPONIN, DEFINED THE 99TH PERCENTILE OF cTnI DISTRIBUTION IN A REFERENCE POPULATION, HAS BEEN CONFIRMED THE DECISION THRESHOLD FOR GA DIAGNOSIS. Performed By: #### H STROPN #### [facility] [address] [address] [address] Indira Francis Formson 04-01-2022 Forms [id number]#1 .00CD:127 Normal [facility] Facesheeton 03-07-2022 Facesheet [id number] .00CD:127 Normal [facility] Ambulatory Visit Summaryon 1 05-06-2021 Ambulatory Visit [...] obesity Obstructive sleep apnea syndrome Psoriasis Normal [facility] Physician Referralon 022 Physician Referral [id number] .[id number]:127 Normal [facility] CBC AUTO DIFFon 01-28-2022 BASO # 0.1 103/ul Normal 0.0-0.1 [facility] Comment on above: Performed By: #### C BC #### [facility] [address] [place] [address] Dr. Indira Francis Basophils/100 WBC (Bld) 0.9 % Normal 0.2-2.0 [facility] Comment on above: Performed By: #### C BC #### [facility] [address] [place] [address] Dr. Indira Francis EO # 0.3 103/ul Normal 0.0-0.7 [facility] Comment on above: Performed By: #### C BC #### [facility] [address] [place] [address] Dr. Indira Francis Eosinophils/100 WBC (Bld) 3.6 % Normal 0.9-7.0 [facility] Comment on above: Performed By: #### C BC #### [facility] [address] [place] [address] Dr. Indira Francis Erythrocyte distribution width (RBC) [Ratio] 12.8 % Normal 11.0-15.0 [facility] Comment on above: Performed By: #### C BC #### [facility] [address] [place] [address] Dr. Indira Francis Hematocrit (Bld) [Volume fraction] 45.4 % Normal 42.0-54.0 [facility] Comment on above: Performed By: #### C BC #### [facility] [address] [place] [address] Dr. Indira Francis Hemoglobin (Bld) [Mass/Vol] 14.8 g/dL Normal 14.0-18.0 [facility] Comment on above: Performed By: #### C BC #### [facility] [address] [place] [address] Dr. Indira Francis IG # 0.03 10e3/ul Normal 0.00-0.03 [facility] Comment on above: Performed By: #### C BC #### [facility] [address] [place] [address] Dr. Indira Francis IG % 0.4 % Normal 0.0-0.5 [facility] Comment on above: Performed By: #### C BC #### [facility] [address] [place] [address] Dr. Indira Francis LYMPH # 1.5 103/ul Normal 1.2-3.8 [facility] Comment on above: Performed By: #### C BC #### [facility] [address] [place] [address] Dr. Indira Francis Lymphocytes/100 WBC (Bld) 18.8 % Critically low 20.5-60.0 [facility] Comment on above: Performed By: #### C BC #### [facility] [address] [place] [address] Dr. Indira Francis MANUAL DIFF REQ NO Normal [facility] Comment on above: Performed By: #### C BC #### [facility] [address] [place] [address] Dr. Indira Francis MCH (RBC) [Entitic mass] 31.0 pg Normal 25.9-34.0 [facility] Comment on above: Performed By: #### C BC #### [facility] [address] [place] [address] Dr. Indira Francis MCHC (RBC) [Mass/Vol] 32.6 g/dL Normal 29.9-35.2 [facility] Comment on above: Performed By: #### C BC #### [facility] [address] [place] [address] Dr. Indira Francis MCV (RBC) [Entitic vol] 95.0 fL Critically high 80.0-94 .0 [facility] Comment on above: Performed By: #### C BC #### [facility] [address] [place] [address] Dr. Indira Francis MONO # 0.7 103/ul Normal 0.3-0.8 [facility] Comment on above: Performed By: #### C BC #### [facility] [address] [place] [address] Dr. Indira Francis Monocytes/100 WBC (Bld) 8.4 % Normal 1.7-12.0 [facility] Comment on above: Performed By: #### C BC #### [facility] [address] [place] [address] Dr. Indira Francis NEUT # 5.5 103/ul Normal 1.4-6.5 [facility] Comment on above: Performed By: #### C BC #### [facility] [address] [place] [address] Dr. Indira Francis Neutrophils/100 WBC (Bld) 67.9 % Normal 43.0-75.0 [facility] Comment on above: Performed By: #### C BC #### [facility] [address] [place] [address] Dr. Indira Francis Platelet mean volume (Bld) [Entitic vol] 9.9 fL Normal 9.5-13.5 [facility] Comment on above: Performed By: #### C BC #### [facility] [address] [place] [address] Dr. Indira Francis PLT 256 103/ul Normal 150-450 [facility] Comment on above: Performed By: #### C BC #### [facility] [address] [place] [address] Dr. Indira Francis RBC 4.78 106/ul Normal 4.70-6.10 [facility] Comment on above: Performed By: #### C BC #### [facility] [address] [place] [address] Dr. Indira Francis WBC 8.0 103/ul Normal 4.0-11.0 [facility] Comment on above: Performed By: #### C BC #### [facility] [address] [place] [address] Dr. Indira Francis GLYCOHEMOGLOBIN A1Con 2021 ADA RECOMMENDATION SEE BELOW Normal [facility] Comment on above: Result Comment: ADA RECOMMENDED LIMIT 4.0 - 6.0 ADA THERAPEUTIC TARGET < 7.0 ACTION SUGGESTED > 7.0 Performed By: #### A 1C ####[facility] [address] [place] [address]Dr. Indira Francis Glucose [Mass/Vol] 117 mg/dL Normal [facility] Comment on above: Performed By: #### A 1C ####[facility] [address] [place] [address]Dr. Indira Francis HbA1c (Bld) [Mass fraction] 5.7 % Normal 4.5-6.2 [facility] Comment on above: Performed By: #### A 1C ####[facility] [address] [place] [address]Dr. Indira Francis LIPID PROFILEon 01-28-2022 CHOL-HDL RATIO NORM SEE BELOW Normal [facility] Comment on above: Result Comment: 3.3 - 4.4 LOW RISK 4.4 - 7.1 AVERAGE RISK 7.1 - 11.0 MODERATE RISK >11.0 HIGH RISK Performed By: #### B MP, TSH, LIVER, LIPID ####[facility] [address] [place] [address]Dr. Indira Francis Cholesterol [Mass/Vol] 209 mg/dL Critically high <=200 [facility] Comment on above: Performed By: #### B MP, TSH, LIVER, LIPID ####[facility] [address] [place] [address]Dr. Indira Francis Cholesterol in HDL [Mass/Vol] 37 mg/dL Critically low 40-60 [facility] Comment on above: Performed By: #### B MP, TSH, LIVER, LIPID ####[facility] [address] [place] [address]Dr. Indira Francis Cholesterol in LDL [Mass/Vol] 150.6 mg/dL Normal [facility] Comment on above: Performed By: #### B MP, TSH, LIVER, LIPID ####[facility] [address] [place] [address]Dr. Amberhector Francis Cholesterol.total/Aysha sterol in HDL [Mass ratio] 5.6 {ratio} Normal [facility] Comment on above: Performed By: #### B MP, TSH, LIVER, LIPID ####[facility] [address] [place] [id number]. Indira Francis HDL NORMAL > or = 60 mg/dl - LO W CARDIOVASCULAR RISK <40 mg/dl - HIGH CARDIOVASCULAR RISK Normal [facility] Comment on above: Performed By: #### B MP, TSH, LIVER, LIPID ####[facility] [address] [place] [address]Dr. Indira Francis LDL CALC NORMAL SEE BELOW Normal [facility] Comment on above: Result Comment: <100 mg/dl OPTIMAL 100 - 129 mg/dl NEAR OR ABOVE OPTIMAL 130 - 159 mg/dl BORDERLINE HIGH 160 - 189 mg/dl HIGH >190 mg/dl VERY HIGH Performed By: #### B MP, TSH, LIVER, LIPID ####[facility] [address] [place] [address]Dr. Indira Francis Triglyceride [Mass/Vol] 107 mg/dL Normal <=150 T [facility] Comment on above: Performed By: #### B MP, TSH, LIVER, LIPID ####[facility] [address] [place] [address]Dr. Indira Francis VLDL CALC 21.4 mg/dL Normal [facility] Comment on above: Performed By: #### B MP, TSH, LIVER, LIPID ####[facility] [address] [place] [address]Dr. Indira Francis LIVER PROFILEon 01-28-2022 Albumin [Mass/Vol] 3.8 g/dL Normal 3.4-5.0 [facility] Comment on above: Performed By: #### B MP, TSH, LIVER, LIPID ####[facility] [address] [place] [address]Dr. Indira Francis Albumin/Globulin [Mass ratio] 0.8 {ratio} Normal [facility] Comment on above: Performed By: #### B MP, TSH, LIVER, LIPID ####[facility] [address] [place] [id number]. Indira Francis ALP [Catalytic activity/Vol] 87 U/L Normal 46-116 [facility] Comment on above: Performed By: #### B MP, TSH, LIVER, LIPID ####[facility] [address] [place] [id number]. Indira Francis ALT [Catalytic activity/Vol] 39 U/L Normal 16-63 [facility] Comment on above: Performed By: #### B MP, TSH, LIVER, LIPID ####[facility] [address] [place] [address]Dr. Indira Francis AST [Catalytic activity/Vol] 23 U/L Normal 15-37 [facility] Comment on above: Performed By: #### B MP, TSH, LIVER, LIPID ####[facility] [address] [place] [address]Dr. Indira Francis BILI, CONJUGATED 0.1 mg/dL Normal 0.0-0.2 [facility] Comment on above: Performed By: #### B MP, TSH, LIVER, LIPID ####[facility] [address] [place] [address]Dr. Indira Francis Bilirubin [Mass/Vol] 0.7 mg/dL Normal 0.2-1.0 [facility] Comment on above: Performed By: #### B MP, TSH, LIVER, LIPID ####[facility] [address] [place] [address]Dr. Indira Francis Globulin (S) [Mass/Vol] 5.0 g/dL [facility] Comment on above: Performed By: #### B MP, TSH, LIVER, LIPID ####[facility] [address] [place] [address]Dr. Indira Francis Protein [Mass/Vol] 8.8 g/dL Critically high 6.4-8.2 [facility] Comment on above: Performed By: #### B MP, TSH, LIVER, LIPID ####[facility] [address] [place] [address]Dr. Indira Francis PROF CHEM 8 (BAS METB)on Anion gap [Moles/Vol] 15.7 mmol/L Normal Th [facility] Comment on above: Performed By: #### B MP, TSH, LIVER, LIPID ####[facility] [address]ft[address] [place] [address]Dr. Indira Francis Calcium [Mass/Vol] 9.5 mg/dL Normal 8.5-10.1 [facility] Comment on above: Performed By: #### B MP, TSH, LIVER, LIPID ####[facility] [address] [place] [address]Dr. Indira Francis Chloride [Moles/Vol] 105 mmol/L Normal 98-107 [facility] Comment on above: Performed By: #### B MP, TSH, LIVER, LIPID ####[facility] [address] [place] [address]Dr. Indira Francis CO2 [Moles/Vol] 24.9 mmol/L Normal 21.0-32.0 [facility] Comment on above: Performed By: #### B MP, TSH, LIVER, LIPID ####[facility] [address] [place] [address]Dr. Indira Francis Creatinine [Mass/Vol] 1.06 mg/dL Normal 0.70-1.30 [facility] Comment on above: Performed By: #### B MP, TSH, LIVER, LIPID ####[facility] [address]xs[address] [place] [address]Dr. Indira Francis EGFR-AF IRISH >60 Normal >=60 [facility] Comment on above: Performed By: #### B MP, TSH, LIVER, LIPID ####[facility] [address] [place] [address]Dr. Indira Francis EGFR-NON AF IRISH >60 Normal >=60 [facility] Comment on above: Performed By: #### B MP, TSH, LIVER, LIPID ####[facility] [address] [place] [address]Dr. Indira Francis Glucose [Mass/Vol] 95 mg/dL Normal 74-106 [facility] Comment on above: Performed By: #### B MP, TSH, LIVER, LIPID ####[facility] [address] [place] [address]Dr. Indira Francis Potassium [Moles/Vol] 4.6 mmol/L Normal 3.5-5.1 [facility] Comment on above: Performed By: #### B MP, TSH, LIVER, LIPID ####[facility] [address] [place] [address]Dr. Indira Francis Sodium [Moles/Vol] 141 mmol/L Normal 136-145 [facility] Comment on above: Performed By: #### B MP, TSH, LIVER, LIPID ####[facility] [address] [place] [address]Dr. Indira Francis Urea nitrogen [Mass/Vol] 21.0 mg/dL Critically high 7.0-18.0 [facility] Comment on above: Performed By: #### B MP, TSH, LIVER, LIPID ####[facility] [address] [place] [address]Dr. Indira Francis Urea nitrogen/Creatinine [Mass ratio] 19.8 mg/mg Normal [facility] Comment on above: Performed By: #### B MP, TSH, LIVER, LIPID ####[facility] [address] [place] [address]Dr. Indira Francis TSHon 01-28-2022 TSH 1.416 uIU/mL Normal 0.358-3.740 [facility] Comment on above: Performed By: #### B MP, TSH, LIVER, LIPID ####[facility] [address] [place] [address]Dr. Indira Francis MRI BRAIN WO W CONon [...] are clear. The flow voids of the [place] are visualized, implying that the [...] by: CONSUELO FRIAS Date: 2022-01-14 09:27 Normal [facility] XR FOREIGN BODY EYEon 2021 XR FOREIGN BODY EYE EXAMINATION: XR FOREIGN BODY EYE HISTORY: Foreign body in eye COMPARISON: No relevant comparison available. FINDINGS: ORBITS: Negative for a metallic foreign body. OTHER: Negative. IMPRESSION: No metallic foreign body in the orbits Electronically authenticated by: KEYLA MILLER Date: 2022-01-11 07:32 Normal [facility] XR Knee Left - OA Protocolon [...] by Oscar Cabrera on 06/12/2021 1051 Normal [facility] Addiction Specialist COVID-19 Positive/Negativeon 07-21-2020 COVID-19 Positive/Negative Negative Negative [facility] Comment on above: Reference: NegativeT esting for SARS-CoV-2 by RT-PCRThis test was developed and its performance characteristics determined by [employer] ([place]) and validated at the [facility]. [...] Otheron 07-21-2020 Coronavirus 2019 PCR Interp N/A [facility] Vital Signs Date Time Vital Sign Value Performing Clinician Facility 03-10-2024 07:59-0500 Body height 188 cm Reza Dillon MD Work Phone: [facility] 03-10-2024 07:59-0500 Body mass index (BMI) [Ratio] 36.59 kg/m2 Reza Dillon MD Work Phone: [facility] 03-10-2024 07:59-0500 Body temperature 97.5 [degF] Reza Dillon MD Work Phone: [facility] 03-10-2024 07:59-0500 Body weight 129.28 kg Reza Dillon MD Work Phone: [facility] 03-10-2024 07:59-0500 Diastolic blood pressure 62 mm[Hg] Reza Dillon MD Work Phone: [facility] 03-10-2024 07:59-0500 Heart rate 68 /min Reza Dillon MD Work Phone: [facility] 03-10-2024 07:59-0500 Respiratory rate 20 /min Reza Dillon MD Work Phone: [facility] 03-10-2024 07:59-0500 SaO2% (BldA) [Mass fraction] 97 % Reza Dillon MD Work Phone: [facility] 03-10-2024 07:59-0500 Systolic blood pressure 118 mm[Hg] Reza Dillon MD Work Phone: [facility] 01-12-2024 17:38-0400 Body height 187.96 cm [facility] 01-12-2024 17:38-0400 Body mass index (BMI) [Ratio] 36.6 kg/m2 [facility] 01-12-2024 17:38-0400 Body temperature 98.1 [degF] [facility] 01-12-2024 17:38-0400 Body weight 129.44 kg [facility] 01-12-2024 17:38-0400 Diastolic blood pressure 90 mm[Hg] [facility] 01-12-2024 17:38-0400 Heart rate 65 /min [facility] 01-12-2024 17:38-0400 Respiratory rate 8 /min [facility] 01-12-2024 17:38-0400 SaO2% (BldA) [Mass fraction] 98 % [facility] 01-12-2024 17:38-0400 Systolic blood pressure 145 mm[Hg] [facility] 08-26-2023 09:03-0400 Body height 187.96 cm [facility] 08-26-2023 09:03-0400 Body mass index (BMI) [Ratio] 35.9 kg/m2 [facility] 08-26-2023 09:03-0400 Body weight 127 kg [facility] 04-25-2023 09:00-0500 Body height 187.96 cm Grady Hitchcock Other [facility] [email or web address] Other 04-25-2023 09:00-0500 Body mass index (BMI) [Ratio] 35.95 kg/m2 Grady Hitchcock Other [employer] Other 04-25-2023 09:00-0500 Body weight 127.01 kg Grady Hitchcock Other [employer] Other 01-28-2023 09:15-0400 Body height 187.96 cm Grady Hitchcock Other [employer] Other 01-28-2023 09:15-0400 Body mass index (BMI) [Ratio] 35.69 kg/m2 Grady Hitchcock Other [employer] Other 01-28-2023 09:15-0400 Body weight 126.1 kg Grady Hitchcock Other [employer] Other 01-28-2023 09:15-0400 Diastolic blood pressure 77 mm[Hg] Grady Hitchcock Other [employer] Other 01-28-2023 09:15-0400 Systolic blood pressure 125 mm[Hg] Grady Hitchcock Other [employer] Other 07-20-2022 11:05-0400 Body height 187.96 cm Matra Adairmond Other [employer] Other 07-20-2022 11:05-0400 Body mass index (BMI) [Ratio] 35.95 kg/m2 Marta Renay Other [employer] Other 07-20-2022 11:05-0400 Body temperature 97.3 [degF] Marta Renay Other [employer] Other 07-20-2022 11:05-0400 Body weight 127.01 kg Marta Renay Other [employer] Other 07-20-2022 11:05-0400 Diastolic blood pressure 85 mm[Hg] Marta Renay Other [employer] Other 07-20-2022 11:05-0400 Respiratory rate 18 /min Mrata Adairmond Other [employer] Other 07-20-2022 11:05-0400 SaO2% (BldA) [Mass fraction] 96 % Marta Adairmond Other [employer] Other 07-20-2022 11:05-0400 Systolic blood pressure 118 mm[Hg] Marta Adairmond Other [employer] Other 03-06-2022 15:33-0500 Blood Pressure Location [employer] [facility] [place] 03-06-2022 15:33-0500 Diastolic blood pressure 94 mm[Hg] Sera NILL [facility] [place] 03-06-2022 15:33-0500 Heart rate 76 /min Sera NILL [facility] [place] 03-06-2022 15:33-0500 Respiratory rate 16 /min Sera NILL [facility] [place] 03-06-2022 15:33-0500 Systolic blood pressure 128 mm[Hg] Sera NILL [facility] [place] 01-24-2021 10:45-0400 Body height 187.96 cm Marta Adairmond Other [employer] Other 01-24-2021 10:45-0400 Body mass index (BMI) [Ratio] 34.66 kg/m2 Marta Renay Other [employer] Other 01-24-2021 10:45-0400 Body temperature 97.1 [degF] Marta Renay Other [employer] Other 01-24-2021 10:45-0400 Body weight 122.47 kg Marta Niño Other [employer] Other 01-24-2021 10:45-0400 Respiratory rate 18 /min Marta Niño Other [employer] Other 01-24-2021 10:45-0400 SaO2% (BldA) [Mass fraction] 99 % Marta Niño Other [employer] Other Encounters Encounter Date Encounter Type Care Provider Facility Start: 03-10-2024 End: 03-10-2024 Bamkevino flowsheet Reza Dillon MD Work Phone: [facility] Start: 03-10-2024 End: 03-10-2024 Bamboo flowsheet Reza Dillon MD Work Phone: [facility] Start: 03-10-2024 End: 03-10-2024 Patient encounter procedure Reza Dillon MD Work Phone: [facility] Work Phone: Start: 03-10-2024 End: 03-10-2024 Periodic preventive med est patient 40-64yrs Reza Dillon MD Work Phone: [facility] Comment on above: Annual physical exam (Primary Dx); Laryngopharyngeal reflux; Psoriatic arthritis (CMS/HCC); Class 2 severe obesity due to excess calories with serious comorbidity and body mass index (BMI) of 36.0 to 36.9 in adult (CMS/HCC); Colon cancer screening; Primary osteoarthritis of both hands Start: 03-10-2024 End: 03-10-2024 ambulatory REZA DILLON Not Available Start: 01-21-2024 End: 01-21-2024 Telephone encounter Lena SANDERS Work Phone: [facility] Start: 01-20-2024 End: 01-20-2024 ambulatory [...] [facility] Start: 01-12-2024 End: 01-12-2024 ambulatory [facility] Work Phone: Start: 01-12-2024 End: 01-12-2024 Patient encounter procedure [facility] Work Phone: Start: 11-10-2023 End: 11-10-2023 ambulatory DAMIR LEWIS Not Available Start: 09-29-2023 End: 09-29-2023 ambulatory DAMIR LEWIS Not Available Start: 09-08-2023 End: 09-08-2023 ambulatory REZA DILLON Not Available Start: 09-03-2023 End: 09-03-2023 ambulatory Justo Carter Facility:[facility] Start: 08-26-2023 End: 08-26-2023 ambulatory [facility] Work Phone: Start: 08-26-2023 End: 08-26-2023 Patient encounter procedure [facility] Gastroenterology Work Phone: Start: 08-25-2023 End: 08-25-2023 ambulatory JO LAZCANO Not Available Start: 07-28-2023 Soren AGUIRRE Work Phone: [facility] Start: 05-06-2023 End: 05-06-2023 ambulatory JOSÉ GAYTAN Not Available Start: 04-25-2023 End: 04-25-2023 ambulatory Grady Alejaheronrodolfo Other [employer] Other Start: 04-25-2023 Patient encounter procedure Grady Hitchcock [facility] Start: 04-18-2023 End: 04-18-2023 ambulatory CARLO Sanchez APLING Not Available Start: 04-09-2023 End: 04-09-2023 ambulatory CARLO Sanchez APLING Not Available Start: 03-27-2023 End: 03-27-2023 ambulatory Grady Mastersoncesar Facility:[facility] Start: 03-27-2023 End: 03-27-2023 ambulatory MD Reza Dillon Work Phone: [facility] Work Phone: Start: 03-27-2023 End: 03-27-2023 Patient encounter procedure MD Reza Dillon Work Phone: [facility]-CT Scan [facility] [place] Work Phone: Start: 03-06-2023 End: 03-06-2023 ambulatory Chuy Ward Facility:[facility] Start: 03-06-2023 End: 03-06-2023 ambulatory MD Reza Dillon Work Phone: [facility] Work Phone: Start: 03-06-2023 End: 03-06-2023 Patient encounter procedure MD Reza Dillon Work Phone: [facility]-Digestive Health Work Phone: Start: 02-17-2023 End: 02-17-2023 ambulatory Reza Dillon Facility:[facility] Start: 02-17-2023 End: 02-17-2023 Patient encounter procedure MD Reza Dillon Work Phone: [facility]-XRay [facility] [place] Work Phone: Start: 01-31-2023 End: 01-31-2023 ambulatory Grady Hitchcock Other [employer] Other Start: 01-31-2023 Telephone encounter Grady Hitchcock [facility] Start: 01-28-2023 End: 01-28-2023 ambulatory Grady Hitchcock Other [employer] Other Start: 01-28-2023 FQ[facility] visit new patient Grady Hitchcock [facility] Start: 09-03-2022 End: 09-04-2022 ambulatory Keyla Martin Facility:[facility] Start: 07-23-2022 End: 07-23-2022 ambulatory MD Jose Escalante Work Phone: [facility] Work Phone: Start: 07-23-2022 End: 07-23-2022 Patient encounter procedure MD Jose Escalante Work Phone: [facility]-XRay [address] Work Phone: Start: 07-20-2022 End: 07-20-2022 ambulatory Marta Niño Other [employer] Other Start: 07-20-2022 Office outpatient vi sit 15 minutes Marta Niño [facility] Start: 07-03-2022 End: 07-03-2022 ambulatory MD Jose Escalante Work Phone: [facility] Work Phone: Start: 07-03-2022 End: 07-03-2022 Patient encounter procedure MD Jose Escalante Work Phone: [facility]-Lab [address] Work Phone: Start: 04-07-2022 End: 04-08-[address] IRENE ALVARADO Facility:[facility] Start: 04-02-2022 End: 04-03-[address] SERA REYNA . Facility:[facility] Start: 03-06-2022 End: 03-07-2022 ambulatory [facility] Start: 03-06-2022 End: 03-06-2022 Patient encounter procedure Sera REYNA General Surgery Nill/Said Alexi Start: 01-31-2022 Encounter for genera l adult medical examination without abnormal findings DR REZA DILLON [facility] Start: 01-29-2022 ambulatory Sera MARIBELL Facility:[facility] [place] Start: 01-28-2022 End: 01-29-[address] REZA DILLON Facility:[facility] Start: 01-28-2022 End: 01-29-2022 Encounter for general adult medical examination without abnormal findings DR REZA DILLON Facility:[facility] Start: 01-11-2022 End: 01-12-[address] DOCTOR SOTO Facility:[facility] Start: 01-24-2021 Office outpatient vi sit 15 minutes Marta Niño [facility] Start: 07-21-2020 End: 07-21-2020 Patient encounter procedure Neftaly Solis -Pre-Surgical Testing Procedures Date Procedure Procedure Detail [...] Comment on above: Performed By: #### P [facility] #### [facility] [address] [place] [address] Dr. Indira Francis Arthroscopy of knee Sera MARIBELL Open reduction of dislocation of wrist Sera MARIBELL Plan of Treatment Date Care Activity Detail Author Start: 09-08-2024 End: 09-08-2024 Patient encounter procedure 09/08/2024 7:30 AM EDT Office Visit [facility] [address] [place] [address] Reza Dillon MD [address] [place] [address] [facility] Start: 08-24-2024 End: 08-24-2024 Patient encounter procedure 08/24/2024 9:40 AM EDT Office Visit [facility] [address] [place] [id number] Jo Lazcano, WES [address] [place], [place] [facility] [address] Start: 03-31-2024 End: 03-31-2024 Patient encounter procedure 03/31/2024 10:00 AM EST Office Visit [facility] [address] [place] [phone] Oscar Elias MD [address] [place] [address] [facility] Start: 03-23-2024 End: 03-23-2024 Patient encounter procedure 03/23/2024 3:15 PM EST Office Visit [facility] [address] [place] [address] [place] [address] [place] [address] Joao Kim MD [address] [place] [address] [facility] Start: 03-18-2024 Adult BMI Screening Adult BMI Screening [facility] Start: 03-18-2024 Tobacco Screening Tobacco Screening [facility] Start: 03-10-2024 End: 03-10-2025 Basic metabolic 1998 panel - Serum or Plasma Basic metabolic panel Lab Routine Annual physical exam Expected: 03/10/2024 (Approximate), Expires: 03/10/2025 [facility] Comment on above: Expected: 03/10/2024 (Approximate), Expi res: 03/10/2025 Start: 03-10-2024 End: 03-10-2025 CBC W Auto Differential panel - Blood CBC and differential Lab Routine Annual physical exam Expected: 03/10/2024 (Approximate), Expires: 03/10/2025 [facility] Comment on above: Expected: 03/10/2024 (Approximate), Expi res: 03/10/2025 Start: 03-10-2024 End: 03-10-2025 Hemoglobin A1c/Hemoglobin.total in Blood Hemoglobin A1c Lab Routine Annual physical exam Expected: 03/10/2024 (Approximate), Expires: 03/10/2025 [facility] Work Phone: Comment on above: Expected: 03/10/2024 (Approximate), Expi res: 03/10/2025 Start: 03-10-2024 End: 03-10-2025 Hepatic function 2000 panel - Serum or Plasma Hepatic function panel Lab Routine Annual physical exam Expected: 03/10/2024 (Approximate), Expires: 03/10/2025 [facility] Comment on above: Expected: 03/10/2024 (Approximate), Expi res: 03/10/2025 Start: 03-10-2024 End: 03-10-2025 Lipid 1996 panel - Serum or Plasma Lipid panel Lab Routine Annual physical exam Expected: 03/10/2024 (Approximate), Expires: 03/10/2025 [facility] Comment on above: Expected: 03/10/2024 (Approximate), Expi res: 03/10/2025 Start: 03-10-2024 End: 03-10-2025 Noninvasive colorectal cancer DNA and occult blood screening [Presence] in Stool Cologuard colon cancer screening Lab Routine Colon cancer screening Expected: 03/10/2024 (Approximate), Expires: 03/10/2025 [facility] Comment on above: Expected: 03/10/2024 (Approximate), Expi res: 03/10/2025 Start: 03-10-2024 End: 03-10-2025 Thyrotropin [Units/volume] in Serum or Plasma TSH Lab Routine Annual physical exam Expected: 03/10/2024 (Approximate), Expires: 03/10/2025 [facility] Comment on above: Expected: 03/10/2024 (Approximate), Expi res: 03/10/2025 Start: 03-10-2024 End: 03-10-2024 Patient encounter procedure [facility] Comment on above: Arrived Start: 01-10-2024 Adult BMI Follow Up Plan Adult BMI Follow Up Plan [facility] Start: 12-21-2023 Influenza vaccination [facility] Start: 08-26-2023 Patient referral [facility] Work Phone: Start: 03-06-2023 [facility] Start: 12-20-2022 COVID-19 Vaccine ( season) COVID-19 Vaccine () [facility] Start: 07-03-2022 Hepatitis B core antibody measurement [facility] Start: 07-03-2022 [facility] Start: 09-16-2021 Screening for malignant neoplasm of colon [facility] Start: 04-21-2003 DTaP,Tdap and Td Vaccines (2 - Td or Tdap) DTaP,Tdap and Td Vaccines (2 - Td or Tdap) [facility] Start: 1974 Depression Screening Depression Screening [facility] Start: 1962 Screening for malignant neoplasm of colon [facility] Dermatopathology exam Dermatopat hology exam Pathology and Cytology Timed Neoplasm of unspecified behavior of bone, soft tissue, and skin Release Upon Ordering for 1 Occurrences starting 01/20/2024 [facility] Work Phone: Comment on above: Release Upon Ordering for 1 Occurrences starting 01/20/2024 Hepatitis B virus carrion rface Ab [Presence] in Serum [facility] Hepatitis B virus carrion rface Ag [Presence] in Serum or Plasma by Immunoassay [facility] Hepatitis C virus Ig G Ab [Presence] in Serum or Plasma by Immunoassay [facility] Patient referral [facility] Work Phone: Immunizations Immunization Date Immunization Notes Care Provider Fa cility 03-20-2023 Influenza, injectabl e, Madin [place] Canine Kidney, preservative free, quadrivalent Oscar Elias MD Work Phone: [facility] 03-20-2023 influenza virus vaccine, unspecified formulation Keyonna AGUIRRE Work Phone: [facility] 02-14-2022 influenza, injectabl e, quadrivalent, preservative free Oscar Elias MD Work Phone: [facility] 11-04-2021 zoster vaccine recombinant Oscar Elias MD Work Phone: [facility] 08-20-2021 zoster vaccine recombinant Oscar Elias MD Work Phone: [facility] 03-05-2021 influenza, injectabl e, quadrivalent, preservative free Oscar Elias MD Work Phone: [facility] 04-04-2019 Influenza, injectabl e, Madin [place] Canine Kidney, preservative free, quadrivalent Oscar Elias MD Work Phone: [facility] 11-25-2018 Toradol per 15 mg Marta Dym ond Other [employer] Other 11-25-2018 Kenalog -40 mg Marta Renay Other [employer] Other 04-07-2017 Toradol per 15 mg Marta Dym ond Other [employer] Other 04-07-2017 KENALOG - 10 mg Marta Dymon d Other [employer] Other 03-25-2016 pneumococcal conjuga te vaccine, 13 valent Oscar Elias MD Work Phone: [facility] 04-21-1993 tetanus toxoid, reduced diphtheria toxoid, and acellular pertussis vaccine, adsorbed Oscar Elias MD Work Phone: [facility] Payers Date Payer Category Payer [facility] [employer] Member Subscriber Plan / Payer (Effective 2022-Present) Name: Anirudh Johnston Relation to Subscriber: Self Name: Anirudh Johnston Payer ID: Not on file Type: Not on file Address: [place] [id number] 2019 Unknown [id number] 1962 Unknown [id number] [id number]. 727 1962 Unknown [id number] 2.16.840.1.718269.3.579.2. 593 1962 Unknown [id number] 2.16.840.1.857331.3.579.2. 593 1962 Unknown [id number] 2.16.840.1.273522.3.579.2. 593 1962 Unknown [id number] 2.16.840.1.747684.3.579.2. 593 1962 Unknown [id number] 2.16.840.1.591161.3.579.2. 593 1962 Unknown [id number] 2.16.840.1.533804.3.579.2. 1259 1962 Unknown [id number] 2.16.840.1.260710.3.579.2. 1259 1962 Unknown [id number] 2.16.840.1.913108.3.579.2. 1259 1962 Unknown [id number] 2.16.840.1.790665.3.579.2. 1259 1962 Unknown [id number] 2.16.840.1.510876.3.579.2. 1259 1962 Unknown [id number] 2.16.840.1.815988.3.579.2. 9 1962 Unknown [id number] 2.16.840.1.640893.3.579.2. 1259 1962 Unknown [id number] 2.16.840.1.161258.3.579.2. 9 1962 Unknown [id number] 2.16.840.1.797549.3.579.2. 1259 1959 Unknown [id number] Self-pay Self Pay [id number] Unknown [id number] Social History Date Type Detail Facility Tobacco smoking stat [facility] Unknown if ever smoked [facility] Start: 1960 Sex Assigned At Male F [facility] Start: 03-18-2023 End: 03-10-2024 Sex Assigned At [facility] Start: 03-06-2022 End: 02-24-2023 Tobacco smoking status Never smoked tobacco (finding) [facility] [place] Tobacco smoking status Never [facility] [place] Start: 02-24-2023 End: 03-18-2023 Tobacco use and exposure Smokeless tobacco non-user [facility] Start: 03-18-2023 End: 03-10-2024 Alcohol intake Current drinker of alcohol (finding) [facility] Start: 03-18-2023 End: 03-10-2024 History of Social function [facility] Start: 11-05-2016 Alcohol Comment occasional [facility] Start: 1960 Sex Assigned At Not on file P [facility] How often to you hav e a [...] Carrion gabby [facility]aines Clinical Notes 01-24-2021 to 03-10-2024 Reza Dillon MD - 03/10/2024 8:39 AM Ela Dillon MD - 03/10/2024 8:39 AM Ela Dillon MD - 03/10/2024 8:39 AM Ela Dillon MD - 03/10/2024 8:39 AM EST Note Date & Type Note Facility 03-10-2024 History of Present illness Narrative Associated Problem(s): Psoriatic arthritis ([facility]) Follow with rheumatology. Associated Problem(s): Laryngopharyngeal reflux Continued symptoms and cough. Add carafate in addition to omeprazole. If no improvement in symptoms will refer to another GI for second opinion. Associated Problem(s): Class 2 severe obesity due to excess calories with serious comorbidity and body mass index (BMI) of 36.0 to 36.9 in adult ([facility]) Weight loss indicated. Associated Problem(s): Annual physical exam Due for labs and repeat cologuard. Discussed proper diet and regular aerobic exercise. Need aerobic exercise 5-6 days a week for 30 minutes at a time. Smaller portions and limit total calories. Tetanus every 10 years. Advised not to smoke. Images from the original note were not included. Subjective Patient ID: Anirudh Johnston is a 63 y.o. male who presents for Follow-up (6 m) and Cough. Presents for annual PE. Weight unchanged over the past year. Active at work but no regular exercise at home. Tries to watch diet and eat healthy. Increased fruits and vegetables. Smaller portions and limits snacking. Tries to limit total daily calories. Due for labs. Continues to c/o cough and problems with reflux. Seen GI and had testing. On omeprazole but continued symptoms. Problems after eating and feels like things stick in throat. Frequent cough after eating or drinking. Seen by ENT and felt related to LPR. Follows with rheum for psoriatic arthritis and psoriasis. Symptoms controlled with humira. Review of Systems Constitutional: Negative for fatigue. Respiratory: Negative for cough, shortness of breath and wheezing. Cardiovascular: Negative for chest pain and palpitations. Gastrointestinal: Negative for abdominal pain, diarrhea, nausea and vomiting. Genitourinary: Negative for dysuria. Objective Physical Exam Constitutional: General: He is not in acute distress. Appearance: Normal appearance. HENT: Head: Normocephalic. Right Ear: Tympanic membrane and ear canal normal. Left Ear: Tympanic membrane and ear canal normal. Eyes: Extraocular Movements: Extraocular movements intact. Pupils: Pupils are equal, round, and reactive to light. Cardiovascular: Rate and Rhythm: Normal rate and regular rhythm. Heart sounds: No murmur heard. No friction rub. No gallop. Pulmonary: Breath sounds: Normal breath sounds. No wheezing, rhonchi or rales. Abdominal: General: Bowel sounds are normal. There is no distension. Palpations: Abdomen is soft. Tenderness: There is no abdominal tenderness. There is no guarding or rebound. Musculoskeletal: General: Normal range of motion. Left lower leg: No edema. Neurological: General: No focal deficit present. Mental Status: He is alert. Cranial Nerves: No cranial nerve deficit. Deep Tendon Reflexes: Reflexes normal. Assessment/Plan Problem List Items Addressed This Visit Laryngopharyngeal reflux Continued symptoms and cough. Add carafate in addition to omeprazole. If no improvement in symptoms will refer to another GI for second opinion. Relevant Medications sucralfate (Carafate) 1 g tablet Class 2 severe obesity due to excess calories with serious comorbidity and body mass index (BMI) of 36.0 to 36.9 in adult ([facility]) Weight loss indicated. Psoriatic arthritis ([facility]) Follow with rheumatology. Annual physical exam - Primary Due for labs and repeat cologuard. Discussed proper diet and regular aerobic exercise. Need aerobic exercise 5-6 days a week for 30 minutes at a time. Smaller portions and limit total calories. Tetanus every 10 years. Advised not to smoke. Relevant Orders Hemoglobin A1c Basic metabolic panel CBC and differential Hepatic function panel Lipid panel TSH Other Visit Diagnoses Colon cancer screening Relevant Orders Cologuard colon cancer screening documented in this encounter [facility] 01-21-2024 Telephone encounter Note Spoke with patient to discuss surgery and he states he is taking a new arthritis medicine and is doing better and shoulder is tolerable at this point and does not want surgery, we will contact us if he desires future treatment [facility] Work Phone: 01-21-2024 Miscellaneous Notes Spoke with patient to discuss surgery and he states he is taking a new arthritis medicine and is doing better and shoulder is tolerable at this point and does not want surgery, we will contact us if he desires future treatment documented in this encounter [facility] 01-20-2024 History of Present illness Narrative Images [...] soft tissue, and skin Neck - Anterior [place] ulcerated papule Lesion biopsy Type of biopsy: [...] biopsy results documented in this encounter [facility] 04-25-2023 Evaluation note Encounter Date Diagnosis Assessment Notes Apr, Gastroesophageal reflux disease, unspecified whether esophagitis present (ICD-10 - K21.9) Apr, Esophagogastric junction outflow obstruction (ICD-10 - K22.2) The patient complains of cough with & after eating. We will switch Pantoprazole to Omeprazole 40 mg BID Retrun visit here in 4 months [employer] Other 10-13-2023 Evaluation note* Encounter Date Diagnosis Assessment Notes Treatment Notes Treatment Clinical Notes Jan, Dysphagia (ICD-10 - R13.10) Jan, GERD (gastroesophageal reflux disease) (ICD-10 - K21.9) [employer] Other 10-10-2023 Evaluation note* Encounter Date Diagnosis Assessment Notes Treatment Notes Treatment Clinical Notes Jan, Gastroesophageal reflux disease, unspecified whether esophagitis present (ICD-10 - K21.9) PATIENT CURRENTLY ON PANTOPRAZOLE 40 BID FOR YEARS. PATIENT TO CONTINUE ON CURRENT DOSING AT THIS TIME. WILL HAVE PATIENT SIGN RELEASE FOR FOR RECORDS FROM [facility] FOR HIS RECENT TESTING. [employer] Other 05-16-2023 NotePROCEDURE: XR GI UPPER AIR [...] Electronically authenticated by: KEYLA MILLER Date: 2022-09-03 10:03[facility] [id number] NotePROCEDURE: XR GI UPPER AIR KUB DUAL [...] Electronically authenticated by: KEYLA MILLER Date: 2022-09-03 10:03[facility] [id number] Evaluation note* Encounter Date Diagnosis Assessment Notes [...] no improvement in 2 to 3 days. [employer] Other 12-13-2022 NotePROCEDURE: XR ESOPHAGUS, XR CINERADIOGRAPHY [...] Electronically authenticated by: OSWALD KAYE Date: 2022-04-02 14:51[facility]12-13-2022 NotePROCEDURE: XR ESOPHAGUS, XR CINERADIOGRAPHY COMPARISON: [...] Electronically authenticated by: OSWALD KAYE Date: 2022-04-02 14:51[facility]11-20-2022 NoteChief Complaint consultation for GERD HPI [...] and Brother. Primary malignant neoplasm of lung: Father.[facility]Comment [facility]:Result Comment: Electronically Signed By: MARIBELL SEGURA, Sera Armenta\Date and Time Signed: 03/10/22 17:38 [id number] Evaluation note* Encounter Date Diagnosis Assessment Notes [...] Patient care instructions given in writting by [facility] Care At Home document. [employer] Other Evaluation + Plan note No data available for this section General Surgery [facility] Evaluation noteNo assessment information available [facility] Work Phone: Evaluation note* Diagnosis Onset Date Resolution Status Coughing acute Heartburn acute [facility] Work Phone: Evaluation note* Diagnosis Neoplasm of unspecified behavior of bone, soft tissue, and skin- Primary documented in this encounter [facility] HealthcareEvaluation note* Diagnosis VERONICA (generalized anxiety disorder) ([facility])- Primary Generalized anxiety disorder Restless leg syndrome Restless legs syndrome (RLS) Benign prostatic hyperplasia without urinary obstruction Gastroesophageal reflux disease without esophagitis Esophageal reflux Rheumatoid arthritis of multiple sites with negative rheumatoid factor ([facility]) Other fatigue Encounter for long-term (current) use of medications Encounter for long-term (current) use of other medications Skin lesion of neck Annual physical exam- Primary Routine general medical examination at a health care facility Laryngopharyngeal reflux Acute laryngitis, without mention of obstruction Psoriatic arthritis ([facility]) Psoriatic arthropathy Class 2 severe obesity due to excess calories with serious comorbidity and body mass index (BMI) of 36.0 to 36.9 in adult ([facility]) Colon cancer screening Special screening for malignant neoplasms, colon Primary osteoarthritis of both hands documented in this encounter [facility] HealthcareHistory general Narrative - Reported* Type Description Date Medical History Benign prostatic hyp erplasia, presence of lower urinary tract symptoms unspecified, unspecified morphology Medical History Gastroesophageal ref lux disease, esophagitis presence not specified Medical History Anxiety Surgical History fracture repair Surgical History wisdom teeth Surgical History biopsy of prostate [employer] Other History general Narrative - Reported* Type Description Date Medical History Benign prostatic hyp erplasia, presence of lower urinary tract symptoms unspecified, unspecified morphology Medical History Gastroesophageal ref lux disease, esophagitis presence not specified Medical History Anxiety Surgical History fracture repair Surgical History wisdom teeth Surgical History biopsy of prostate Hospitalization History see above [employer] Other Hospital Discharge instructions No data available for this section General Surgery [facility] Discharge instructionsAmbulatory Orders* Referral to ENT Time Frame: 08/26/23, Location: None Selected [facility] Work Phone: InstructionsNot on filedocumented in this encounter [facility] [employer] SystemProgress note No data available for this section General Surgery [place] Advance Directives No Advanced Directives Records Found Advance Directive Response Recorded Date/ Time Advance [...] Assessments Information Available Summary Purpose Family History No Family History Records Found Relationship Condition Age at Onset Recorded Date/T [...] section and content) DATE CREATED AUTHOR 06/13/2021 [facility] Specialist DATE CREATED AUTHOR AUTHOR'S ORGANIZ ATION 04/20/2022 [facility] DATE CREATED AUTHOR AUTHOR'S ORGANIZ ATION 09/04/2022 [facility] DATE CREATED AUTHOR AUTHOR'S ORGANIZ ATION 10/20/2022 [facility] DATE CREATED AUTHOR AUTHOR'S ORGANIZ ATION 09/05/2023 [facility] DATE CREATED AUTHOR AUTHOR'S ORGANIZ ATION 03/12/2024 [facility]ists EPIC REASON FOR VISIT (unrecogniz ed section and content) Reason Comments Med Refill Reason Comments Suspicious Skin Lesion Reason Comments Follow-up 6 m Cough Patient Care team informatio n (unrecognized section and content) Team Status: Active Member Role Status Dates Jose Escalante MD Primary Care Provider Active Team Status: Inactive Member Role Status Dates Jose Escaalnte MD Primary Care Provider Active Justo Carter [...] Active Grady Hitchcock MD Attending Provider Active [employer] Relationship Specialty Start Date End Date Reza Dillon MD [address] [place] [address] PCP - General Family Medicine 09/10/21 Team [...] January 12, 2024 End: January 12, 2024 [employer] Relationship Specialty Start Date End Date Reza Dillon MD [address] [place] [address] PCP - General Family Medicine 08/25/23 Reza iDllon MD [address] [place] [address] PCP - Medical [employer] 04/21/17 04/20/99 [employer] Relationship Specialty Start Date End Date Reza Dillon MD [address] [place] [address] PCP - General Family Medicine 08/25/23 Reza Dillon MD [address] [place] [address] PCP - Medical [employer] 04/21/17 04/20/99 [employer] Relationship Specialty Start Date End Date Reza Diloln MD [address] [place] [address] PCP - General Family Medicine 08/25/23 Reza Dillon MD [address] [place] [address] PCP - [facility] [employer] 04/21/17 04/20/99 [employer] Relationship Specialty Start Date End Date Reza Dillon MD [address] [place] [address] PCP - General Family Medicine 08/25/23 Reza Dillon MD [address] [place] [address] PCP - [facility] [employer] 04/21/17 04/20/99 [employer] Relationship Specialty Start Date End Date Reza Dillon MD [address] [place] [address] PCP - General Family Medicine 08/25/23 Reza Dillon MD [address] [place] [address] PCP - Medical [employer] 04/21/17 04/20/99 Goals (unrecognized section and content) [...] BE BASED ON THE PRIMARY CLINICAL RECORDS. [employer] [facility]. provides no warranty or guarantee of the accuracy or completeness of information in this document.
[2024-03-15 09:03] LABS: Basophils Absolute Auto 0.1 10^3/uL (0.0-0.1); Basophils Percent Auto 1.3 % (0.2-2.0); Eosinophils Absolute Auto 0.2 10^3/uL (0.0-0.7); Eosinophils Percent Auto 3.1 % (0.9-7.0); Hemoglobin 14.9 g/dL (14.0-18.0); Immature Granulocytes Abs Auto 0.01 10^3/uL (0.00-0.03); Immature Granulocytes Pct Auto 0.2 % (0.0-0.5); Lymphocytes Absolute Auto 2.8 10^3/uL (1.2-3.8); Lymphocytes Percent Auto 45.6 % (20.5-60.0); Mean Corpuscular HGB Conc 33.1 g/dL (29.9-35.2); Mean Corpuscular Hemoglobin 31.6 pg (25.9-34.0); Mean Corpuscular Volume 95.5 fL (80.0-94.0); Mean Platelet Volume 9.2 fL (9.5-13.5); Monocytes Absolute Auto 0.5 10^3/uL (0.3-0.8); Monocytes Percent Auto 8.6 % (1.7-12.0); Neutrophils Absolute Auto 2.5 10^3/uL (1.4-6.5); Neutrophils Percent Auto 41.2 % (43.0-75.0); Platelet Count 224 10^3/uL (150-450); Red Blood Count 4.71 10^6/uL (4.70-6.10); Red Cell Distribution Width 12.2 % (11.0-15.0); White Blood Count 6.1 10^3/uL (4.0-11.0)
[2024-03-15 09:14] LABS: Estimated Average Glucose 117 mg/dL; Glycohemoglobin A1C 5.7 % (4.5-6.2)
[2024-03-15 09:40] LABS: Alanine Aminotransferase 47 U/L (16-63); Albumin Globulin Ratio 0.8; Albumin Level 3.5 g/dL (3.4-5.0); Alkaline Phosphatase 75 U/L (46-116); Anion Gap 14.5; Aspartate Amino Transferase 26 U/L (15-37); BUN Creatinine Ratio 17.6; Bilirubin Direct 0.1 mg/dL (0.0-0.2); Bilirubin Total 0.7 mg/dL (0.2-1.0); Calcium 9.5 mg/dL (8.5-10.1); Carbon Dioxide 27.7 mmol/L (21.0-32.0); Chloride 105 mmol/L (98-107); Chol HDL Ratio 5.1; Cholesterol 202 mg/dL (<=200); Estimated GFR (African America >60 (>=60 mL/min/1.73m^2); Estimated GFR (Non-African Ame >60 (>=60 mL/min/1.73m^2); Globulin 4.5 g/dL; Glucose 98 mg/dL (74-106); HDL Cholesterol 40 mg/dL (40-60); Potassium 4.2 mmol/L (3.5-5.1); Sodium 143 mmol/L (136-145); Thyroid Stimulating Hormone 1.872 uIU/mL (0.358-3.740); Triglycerides 99 mg/dL (<=150); VLDL CHOLESTEROL 19.8 mg/dL
== END 2024-03-15 08:14 | disposition home or self-care (01) ==
LOC: LAB 08:14
PROVIDERS: PCP Family Medicine; Visit Provider Family Medicine
DX: Z00.00 Encounter for general adult medical examination without abnormal findings (principal); R97.20 Elevated prostate specific antigen [PSA]
CPT/HCPCS: 36415; 80048; 80061; 80076; 83036; 84153; 84443; 85025

== ENCOUNTER 2024-03-15 08:16 | Outpatient (OUT) | payer OTHER, SELFPAY ==
[2024-03-15 10:42] LABS: Prostate Specific Antigen Dx 6.75 ng/mL (<=4.00)
== END 2024-03-15 08:17 | disposition home or self-care (01) ==
LOC: LAB 08:17
PROVIDERS: PCP Family Medicine
DX: R97.20 Elevated prostate specific antigen [PSA] (principal)
CPT/HCPCS: 36415; 84153